=== PATIENT | female | born 1980 | race African-American/Black ===

== ENCOUNTER 2016-09-06 12:48 | Emergency (ER) | payer OTHER ==
[~2016-09-06] VITALS: Ht 160 cm; Wt 65.8 kg
[~2016-09-06 12:48] MED LIST: PNV1TABL12 PO
[2016-09-06] MEDS ORDERED: MORPHINE SULFATE 10 MG/ML VIAL. IM ONE (15:30)
[2016-09-06] MEDS ORDERED: DIPHENHYDRAMINE 50 MG/ML VIAL IM ONE (15:30)
[2016-09-06] MEDS ORDERED: DEXAMETHASONE SOD PHOS 20 MG/5 ML VIAL. IM ONE (15:30)
[2016-09-06] MEDS ORDERED: METH4TAB2 PO (15:49)
[2016-09-06] MEDS ORDERED: HYDR-971 PO (15:49)
--- NOTE | 2016-09-06 15:49 | PHYS DOC ---
Past Medical History Past Medical History: Arthritis, Asthma, UTI, Other Additional Past Medical Histor: RA, FLUID ON KNEE Past Surgical History: Appendectomy, , Other Additional Past Surgical Histo: hiatal hernia Alcohol Use: None Drug Use: None Adult General Chief Complaint Chief Complaint: LOWER EXT PAIN HPI HPI Patient is a 35 year old female who presents today with moderate chronic left lower extremity pain especially around the knee due to rheumatoid arthritis. Patient denies any known injury. She states she has an appointment with an orthopedic doctor next week. Review of Systems Review of Systems Constitutional: Denies fever or chills [] Musculoskeletal: Chronic left lower extremity pain Integument: Denies rash or skin lesions [] Neurologic: Denies headache, focal weakness or sensory changes [] Endocrine: Denies polyuria or polydipsia [] Current Medications Current Medications Current Medications Medications (Trade) Dose Ordered Sig/Wolfgang Start Time Stop Time Status Last Admin Dose Admin Dexamethasone Sodium Phosphate (Decadron) 10 mg 1X ONCE 09/06/16 15:30 09/06/16 15:31 DC 09/06/16 15:31 10 MG Diphenhydramine HCl (Benadryl) 25 mg 1X ONCE 09/06/16 15:30 09/06/16 15:31 DC 09/06/16 15:31 25 MG Morphine Sulfate 5 mg 1X ONCE 09/06/16 15:30 09/06/16 15:31 DC 09/06/16 15:30 5 MG Allergies Allergies Allergies Coded Allergies Type Severity Reaction Last Updated Verified butorphanol tartrate Allergy Intermediate Anxiety 07/26/14 Yes Penicillins Allergy Unknown 07/26/14 Yes ibuprofen Allergy Unknown 07/26/14 Yes latex Allergy Unknown 07/26/14 Yes Physical Exam Physical Exam Constitutional: Well developed, well nourished, no acute distress, non-toxic appearance. [] Skin: Warm, dry, no erythema, no rash. [] Back: No tenderness, no CVA tenderness. [] Extremities: Left lower extremity with no obvious deformity, small amount of swelling noted diffusely on the knee. Diffuse tenderness throughout the knee. No warmth on the knee. Full range of motion to the knee the patient is complaining of pain when he to range of motion. Negative Kalyani sign negative Carisa's sign negative anterior-posterior drawer sign to the left knee. +2 left pedal pulse. Cap refill less than 2 seconds the left lower extremity. Neurologic: Alert and oriented X 3, normal motor function, normal sensory function, no focal deficits noted. [] Psychologic: Affect normal, judgement normal, mood normal. [] Current Patient Data Vital Signs Vital Signs Date Time Temp Pulse Resp B/P Pulse Ox O2 Delivery O2 Flow Rate FiO2 09/06/16 16:09 81 18 160/104 100 Room Air 09/06/16 14:18 97.5 97.5 EKG EKG [] Radiology/Procedures Radiology/Procedures [] Course & Med Decision Making Course & Med Decision Making Pertinent Labs and Imaging studies reviewed. (See chart for details) Patient is in the ED with complaints of chronic left lower extremity pain especially around the knee due to rheumatoid arthritis. She was given right Decadron IM and morphine IM. Discharged with Medrol Dosepak and Onida 8 tablets with f/u with Ortho [] Dragon Disclaimer Dragon Disclaimer This electronic medical record was generated, in whole or in part, using a voice recognition dictation system. Departure Departure Impression: Primary Impression: Chronic pain of lower extremity Disposition: 01 HOME, SELF-CARE Condition: STABLE Referrals: JULIET BARNARD (PCP) Follow-up with your doctor as soon as possible Patient Instructions: Knee Pain Additional Instructions: You were seen for chronic left lower extremity pain. Please consider following up with your own doctor as soon as possible. You can ice and elevate the extremity. Scripts Clindamycin Hcl 150 Mg Capsule3 Cap PO TID #90 CAP Prov:ISAAC CRANDALL YULISA 09/06/16 Methylprednisolone (Medrol)4 Mg Tab.ds.pk1 Pkg PO UD #1 PKG Prov:ISAAC CRANDALL YULISA 09/06/16 Hydrocodone/Apap 5-325 (Onida 5-325 Tablet)1 Each Tablet1-2 Tab PO Q4-6HRS #8 TAB Prov:ISAAC CRANDALL YULISA 09/06/16 Problem Qualifiers Primary Impression: Chronic pain of lower extremity Laterality: left Qualified Code: M79.605 - Pain in left leg ISAAC CRANDALL APRN Sep 06, 2016 15:49
[2016-09-06 16:09] VITALS: BP 160/104
[2016-09-06] MEDS ORDERED: CLIN-44 PO (16:15)
== END 2016-09-06 16:14 | disposition home or self-care (01) ==
LOC: ER 12:48
DX: G89.29 Other chronic pain (principal); M79.605 Pain in left leg; M06.862 Other specified rheumatoid arthritis, left knee; J45.909 Unspecified asthma, uncomplicated; Z88.0 Allergy status to penicillin; Z88.6 Allergy status to analgesic agent; Z88.8 Allergy status to other drugs, medicaments and biological substances; Z91.040 Latex allergy status
CPT/HCPCS: 29505; 96372; 99284; J1100; J1200; J2270

== ENCOUNTER 2016-10-25 16:19 | Emergency (ER) | payer OTHER ==
[~2016-10-25] VITALS: Ht 160 cm; Wt 68.0 kg
[~2016-10-25 16:19] MED LIST changes: +CLIN-44 PO; +HYDR-971 PO; +METH4TAB2 PO
[2016-10-25 16:21] VITALS: BP 133/93
--- NOTE | 2016-10-25 16:37 | PHYS DOC ---
Past Medical History Past Medical History: Arthritis, Asthma, UTI, Other Additional Past Medical Histor: RA, FLUID ON KNEE Past Surgical History: Appendectomy, , Other Additional Past Surgical Histo: hiatal hernia, TOOTH EXTRACTION Alcohol Use: None Drug Use: None Adult General Chief Complaint Chief Complaint: DENTAL PROBLEM HPI HPI Patient is a 35 year old female presents emergency room today with complaint of upper mouth/jaw pain for 2 days. Patient states that she had 15 teeth extracted 2 days ago with [facility]. She states that she has been smoking cigarettes since that period of time. Patient was prescribed Percocet by [facility]. She reports an intolerance to Percocet as it causes her to feel agitated, nauseous and "itching". Review of Systems Review of Systems Constitutional: Denies fever or chills [] Eyes: Denies change in visual acuity, redness, or eye pain [] HENT: Denies nasal congestion or sore throat [] Respiratory: Denies cough or shortness of breath [] Cardiovascular: No additional information not addressed in HPI [] GI: Denies abdominal pain, nausea, vomiting, bloody stools or diarrhea [] : Denies dysuria or hematuria [] Musculoskeletal: Denies back pain or joint pain [] Integument: Denies rash or skin lesions [] Neurologic: Denies headache, focal weakness or sensory changes [] Endocrine: Denies polyuria or polydipsia [] Current Medications Current Medications Current Medications Medications (Trade) Dose Ordered Sig/Wolfgang Start Time Stop Time Status Last Admin Dose Admin Morphine Sulfate 5 mg 1X ONCE 10/25/16 16:45 10/25/16 16:46 UNV Allergies Allergies Allergies Coded Allergies Type Severity Reaction Last Updated Verified Penicillins Allergy Intermediate 10/25/16 Yes ibuprofen Allergy Intermediate 10/25/16 Yes latex Allergy Intermediate 10/25/16 Yes acetaminophen Adverse Reaction Intermediate Itching 10/25/16 Yes butorphanol tartrate Adverse Reaction Intermediate Anxiety 10/25/16 Yes oxycodone Adverse Reaction Intermediate Itching 10/25/16 Yes Physical Exam Physical Exam Constitutional: Well developed, well nourished, moderate distress, non-toxic appearance. Patient reports that she arrived with her who provided her transportation. HENT: Normocephalic, atraumatic, bilateral external ears normal, oropharynx moist, no oral exudates, nose normal. There is no trismus. There is moderate gingival inflammation to the central and left maxillary gum. It is not hypovolemic. There is no purulent drainage. There are no palpable gingival abscesses. There is no evidence of dry socket at this time. Eyes: PERRLA, EOMI, conjunctiva normal, no discharge. [] Neck: Normal range of motion, no tenderness, supple, no stridor. [] Cardiovascular:Heart rate regular rhythm, no murmur [] Lungs & Thorax: Bilateral breath sounds clear to auscultation [] Abdomen: Bowel sounds normal, soft, no tenderness, no masses, no pulsatile masses. [] Skin: Warm, dry, no erythema, no rash. [] Back: No tenderness, no CVA tenderness. [] Extremities: No tenderness, no cyanosis, no clubbing, ROM intact, no edema. [] Neurologic: Alert and oriented X 3, normal motor function, normal sensory function, no focal deficits noted. [] Psychologic: Affect normal, judgement normal, mood normal. [] Current Patient Data Vital Signs Vital Signs Date Time Temp Pulse Resp B/P Pulse Ox O2 Delivery O2 Flow Rate FiO2 10/25/16 16:21 97.9 93 20 99 Room Air 97.9 EKG EKG [] Radiology/Procedures Radiology/Procedures [] Course & Med Decision Making Course & Med Decision Making Pertinent Labs and Imaging studies reviewed. (See chart for details) [] Dragon Disclaimer Dragon Disclaimer This electronic medical record was generated, in whole or in part, using a voice recognition dictation system. Departure Departure Impression: Primary Impression: Pain, dental Additional Impression: Adverse drug reaction Disposition: 01 HOME, SELF-CARE Condition: IMPROVED Referrals: JULIET BARNARD (PCP) Patient Instructions: Dental Extraction, Care After, Drug Reaction, GI Intolerance Additional Instructions: 1. Take the medications prescribed. 2. Review the discharge instructions provided for self-care and reasons to return the emergency department. 3. As discussed, avoid smoking and sucking on straws. Be sure to rinse your mouth with warm salt water after eating. 4. Stop taking the Percocet that you say you have an adverse reaction to. 5. Call [facility] in the morning to be seen this week if you require additional pain medication. You may also contact your primary care doctor for prescription refill if needed. Scripts Hydrocodone/Apap 5-325 (Galva 5-325 Tablet)1 Each Tablet1 Tab PO PRN Q6HRS PRN PAIN #15 TAB Prov:KERMIT SIGALA 10/25/16 Problem Qualifiers KERMIT SIGALA Oct 25, 2016 16:37
[2016-10-25] MEDS ORDERED: MORPHINE SULFATE 10 MG/ML VIAL. IM ONE ×2 (16:45)
[2016-10-25] MEDS ORDERED: HYDR-971 PO (16:51)
== END 2016-10-25 17:10 | disposition home or self-care (01) ==
LOC: ER 16:19
DX: T40.2X5A Adverse effect of other opioids, initial encounter (principal); K08.89 Other specified disorders of teeth and supporting structures; R11.0 Nausea; R68.84 Jaw pain; R45.1 Restlessness and agitation; J45.909 Unspecified asthma, uncomplicated; M19.90 Unspecified osteoarthritis, unspecified site; F17.210 Nicotine dependence, cigarettes, uncomplicated; Z88.0 Allergy status to penicillin; Z91.040 Latex allergy status; Z88.6 Allergy status to analgesic agent; Z88.8 Allergy status to other drugs, medicaments and biological substances; Y92.89 Other specified places as the place of occurrence of the external cause
CPT/HCPCS: 96372; 99283; J2270

== ENCOUNTER 2016-11-17 17:32 | Emergency (ER) | payer SELFPAY ==
[~2016-11-17] VITALS: Ht 160 cm; Wt 68.0 kg
[2016-11-17 17:55] VITALS: BP 147/88
[2016-11-17] MEDS ORDERED: HYDR-971 PO (18:12)
--- NOTE | 2016-11-17 18:12 | PHYS DOC ---
Past Medical History Past Medical History: Arthritis, Asthma, UTI, Other Additional Past Medical Histor: RA, FLUID ON KNEE Past Surgical History: Appendectomy, , Other Additional Past Surgical Histo: hiatal hernia, TOOTH EXTRACTION Alcohol Use: None Drug Use: None Adult General Chief Complaint Chief Complaint: LOWER EXT PAIN HPI HPI Patient is a 35 year old female presents emergency Department today with complaint that her left knee has been "giving out and having to be put back in place". She states this is been reoccurring throughout the course of today. Patient has a history of chronic knee problems. She states she is followed by orthopedics and is pending physical therapy and December. She denies injury at this time. Patient was seen here in August for the same complaint. She is requesting some type of x-ray testing to be performed to see if there is any deep tissue problem. Review of Systems Review of Systems Constitutional: Denies fever or chills [] Eyes: Denies change in visual acuity, redness, or eye pain [] HENT: Denies nasal congestion or sore throat [] Respiratory: Denies cough or shortness of breath [] Cardiovascular: No additional information not addressed in HPI [] GI: Denies abdominal pain, nausea, vomiting, bloody stools or diarrhea [] : Denies dysuria or hematuria [] Musculoskeletal: Denies back pain or joint pain [] Integument: Denies rash or skin lesions [] Neurologic: Denies headache, focal weakness or sensory changes [] Endocrine: Denies polyuria or polydipsia [] Allergies Allergies Allergies Coded Allergies Type Severity Reaction Last Updated Verified Penicillins Allergy Intermediate 10/25/16 Yes ibuprofen Allergy Intermediate 10/25/16 Yes latex Allergy Intermediate 10/25/16 Yes acetaminophen Adverse Reaction Intermediate Itching 10/25/16 Yes butorphanol tartrate Adverse Reaction Intermediate Anxiety 10/25/16 Yes oxycodone Adverse Reaction Intermediate Itching 10/25/16 Yes Physical Exam Physical Exam Constitutional: Well developed, well nourished, no acute distress, non-toxic appearance. [] HENT: Normocephalic, atraumatic, bilateral external ears normal, oropharynx moist, no oral exudates, nose normal. [] Eyes: PERRLA, EOMI, conjunctiva normal, no discharge. [] Neck: Normal range of motion, no tenderness, supple, no stridor. [] Cardiovascular:Heart rate regular rhythm, no murmur [] Lungs & Thorax: Bilateral breath sounds clear to auscultation [] Abdomen: Bowel sounds normal, soft, no tenderness, no masses, no pulsatile masses. [] Skin: Warm, dry, no erythema, no rash. [] Back: No tenderness, no CVA tenderness. [] Extremities: Left knee is normal in appearance. There is no fusiform swelling or erythema. There is no high riding patella. Flexor and extensor mechanism is intact. There is no heat or focal area of tenderness. Negative ballottement. There is no patellar laxity. Ligaments are stable solid endpoints. Neurologic: Alert and oriented X 3, normal motor function, normal sensory function, no focal deficits noted. [] Psychologic: Affect normal, judgement normal, mood normal. [] Current Patient Data Vital Signs Vital Signs Date Time Temp Pulse Resp B/P Pulse Ox O2 Delivery O2 Flow Rate FiO2 11/17/16 17:55 97.6 104 20 97 Room Air 97.6 EKG EKG [] Radiology/Procedures Radiology/Procedures [] Course & Med Decision Making Course & Med Decision Making Pertinent Labs and Imaging studies reviewed. (See chart for details) [] Dragon Disclaimer Dragon Disclaimer This electronic medical record was generated, in whole or in part, using a voice recognition dictation system. Departure Departure Impression: Primary Impression: Chronic pain of left knee Disposition: 01 HOME, SELF-CARE Condition: GOOD Referrals: JULIET BARNARD (PCP) Patient Instructions: Knee Pain, [id number] Additional Instructions: 1. As discussed, the ligaments of your knee are stable. There is no need for a knee brace at this time. 2. Wear the Rashi wrap and use crutches for assisted weightbearing weight or walking. 3. Take the medication as prescribed. 4. Contact your orthopedic doctor in the morning to schedule follow-up appointment to discuss further management of your knee. Scripts Hydrocodone/Apap 5-325 (Luxora 5-325 Tablet)1 Each Tablet1 Tab PO PRN Q6HRS PRN PAIN #10 TAB Prov:KERMIT SIGALA 11/17/16 KERMIT SIGALA Nov 17, 2016 18:12
== END 2016-11-17 18:22 | disposition home or self-care (01) ==
LOC: ER 17:32
DX: G89.29 Other chronic pain (principal); M25.562 Pain in left knee; M06.9 Rheumatoid arthritis, unspecified; M19.90 Unspecified osteoarthritis, unspecified site; Z90.49 Acquired absence of other specified parts of digestive tract; Z87.440 Personal history of urinary (tract) infections; Z98.890 Other specified postprocedural states; J45.909 Unspecified asthma, uncomplicated; Z88.0 Allergy status to penicillin; Z88.5 Allergy status to narcotic agent; Z88.8 Allergy status to other drugs, medicaments and biological substances; Z91.040 Latex allergy status
CPT/HCPCS: 99283

== ENCOUNTER 2017-01-05 15:34 | Emergency (ER) | payer SELFPAY ==
[~2017-01-05] VITALS: Ht 160 cm; Wt 68.0 kg
[2017-01-05 15:45] VITALS: BP 145/78
--- NOTE | 2017-01-05 16:02 | PHYS DOC ---
Past Medical History Past Medical History: Arthritis, Asthma, UTI, Other Additional Past Medical Histor: RA, FLUID ON KNEE Past Surgical History: Appendectomy, , Other Additional Past Surgical Histo: hiatal hernia, TOOTH EXTRACTION, ABD MESH Alcohol Use: None Drug Use: None Adult General Chief Complaint Chief Complaint: VAGINAL PROBLEM HPI HPI Patient is a 36 year old female with a history of arthritis, anxiety, UTIs, who presents today with moderate pelvic pain and moderate vaginal bleeding for 7 days. Patient states she had a Depo shot 1 month ago and started bleeding 7 days ago. Patient states she already had another cycle around 12/16/2016. Patient denies any chance she is . Denies any urgency frequency dysuria. Denies any concerns for STDs. Review of Systems Review of Systems Constitutional: Denies fever or chills [] Eyes: Denies change in visual acuity, redness, or eye pain [] HENT: Denies nasal congestion or sore throat [] Respiratory: Denies cough or shortness of breath [] Cardiovascular: No additional information not addressed in HPI [] GI: Pelvic pain and of the vaginal bleeding : Denies dysuria or hematuria [] Musculoskeletal: Denies back pain or joint pain [] Integument: Denies rash or skin lesions [] Neurologic: Denies headache, focal weakness or sensory changes [] Endocrine: Denies polyuria or polydipsia [] Allergies Allergies Allergies Coded Allergies Type Severity Reaction Last Updated Verified Penicillins Allergy Intermediate 10/25/16 Yes ibuprofen Allergy Intermediate 10/25/16 Yes latex Allergy Intermediate 10/25/16 Yes acetaminophen Adverse Reaction Intermediate Itching 10/25/16 Yes butorphanol tartrate Adverse Reaction Intermediate Anxiety 10/25/16 Yes oxycodone Adverse Reaction Intermediate Itching 10/25/16 Yes Physical Exam Physical Exam Constitutional: Well developed, well nourished, no acute distress, non-toxic appearance. [] HENT: Normocephalic, atraumatic, bilateral external ears normal, oropharynx moist, no oral exudates, nose normal. [] Eyes: PERRLA, EOMI, conjunctiva normal, no discharge. [] Neck: Normal range of motion, no tenderness, supple, no stridor. [] Cardiovascular:Heart rate regular rhythm, no murmur [] Lungs & Thorax: Bilateral breath sounds clear to auscultation [] Abdomen: Bowel sounds normal, soft, no tenderness, no masses, no pulsatile masses. [] Pelvic pain External pelvic appears normal, cervix is closed, no CMT, trace amount of bright red blood in the vaginal vault, no adnexal tenderness, Skin: Warm, dry, no erythema, no rash. [] Back: No tenderness, no CVA tenderness. [] Extremities: No tenderness, no cyanosis, no clubbing, ROM intact, no edema. [] Neurologic: Alert and oriented X 3, normal motor function, normal sensory function, no focal deficits noted. [] Psychologic: Affect normal, judgement normal, mood normal. [] Current Patient Data Vital Signs Vital Signs Date Time Temp Pulse Resp B/P (MAP) Pulse Ox O2 Delivery O2 Flow Rate FiO2 01/05/17 15:45 97.7 94 24 145/78 (100) 100 Room Air 97.7 Lab Values Laboratory Tests Test 01/05/17 16:00 01/05/17 16:35 Urine Collection Type Unknown Urine Color Yellow Urine Clarity Clear Urine pH 5.5 Urine Specific [place] 1.025 Urine Protein Negative mg/dL (NEG-TRACE) Urine Glucose (UA) Negative mg/dL (NEG) Urine Ketones (Stick) Negative mg/dL (NEG) Urine Blood Large (NEG) Urine Nitrite Negative (NEG) Urine Reducing Substances % (NEG) Urine Bilirubin Negative (NEG) Urine Urobilinogen Dipstick 0.2 mg/dL (0.2 mg/dL) Urine Leukocyte Esterase Negative (NEG) Urine RBC 11-20 /HPF (0-2) Urine WBC 0 /HPF (0-4) Urine Squamous Epithelial Cells Mod /LPF Urine Bacteria 0 /HPF (0-FEW) Urine Mucus Marked /LPF POC Hemoglobin 13.6 g/dL (12-15) POC Hematocrit 40 % (36-40) POC Sodium 139 mmol/L (135-145) POC Potassium 3.5 mmol/L (3.5-5.0) POC Chloride 105 mmol/L (98-110) POC Total CO2 23 mmol/L (23-32) Anion Gap 15 mmol/L (6-14) H POC Blood Urea Nitrogen 6 mg/dL (8-26) L POC Creatinine 0.6 mg/dL (0.5-1.4) Glucose Level 143 mg/dL (70-99) H POC Ionized Calcium (Tho) 1.17 mmol/L (1.13-1.32) Laboratory Tests 01/05/17 16:35 Microbiology 01/05/17 Wet Prep - Final, Complete EKG EKG [] Radiology/Procedures Radiology/Procedures [] Course & Med Decision Making Course & Med Decision Making Pertinent Labs and Imaging studies reviewed. (See chart for details) Patient is in the ED with vaginal bleeding that began 7 days ago. She had depo shot a month ago. She had trace amount of blood in her vaginal vault during exam. She is well known to this ED for chronic pain complaints. Hemoglobin 13.6 , hematocrit 40%. Negative urine hCG, urine analysis is negative for infection, wet prep negative for any acute findings. Patient was provided return precautions. Follow-up with [facility] no PCP in the next 7 days. Dragon Disclaimer Dragon Disclaimer This electronic medical record was generated, in whole or in part, using a voice recognition dictation system. Departure Departure Impression: Primary Impression: Dysfunctional uterine bleeding Disposition: HOME, SELF-CARE Condition: STABLE Referrals: JULIET BARNARD (PCP) MICHAEL HARMON Jr, MD Follow up with your Primary Care Doctor or Dr. Caitie ALAMO in 1-3 days Patient Instructions: Uterine Bleeding, Dysfunctional Additional Instructions: You were seen for dysfunctional uterine bleeding. Follow-up with your own doctor or the provided [facility] as soon as you can. ISAAC CRANDALL APRN January 05, 2017 16:02
[2017-01-05 16:11] LABS: BILIRUBIN,URINE NEGATIVE (NEG); GLUCOSE,URINE NEGATIVE (NEG); NITRITE,URINE NEGATIVE (NEG); PH,URINE 5.5; PROTEIN,URINE NEGATIVE (NEG-TRACE); UROBILINOGEN,URINE 0.2 mg/dL (0.2 mg/dL)
[2017-01-05 16:17] LABS: BACTERIA,URINE 0 /HPF (0-FEW); SQUAMOUS EPITHELIAL CELL,UR MOD /LPF; WBC,URINE 0 /HPF (0-4)
[2017-01-05 16:40] LABS: POTASSIUM ISTAT 3.5 mmol/L (3.5-5.0)
== END 2017-01-05 16:48 | disposition home or self-care (01) ==
LOC: ER 15:34
DX: N93.8 Other specified abnormal uterine and vaginal bleeding (principal); M19.90 Unspecified osteoarthritis, unspecified site; J45.909 Unspecified asthma, uncomplicated; Z87.440 Personal history of urinary (tract) infections; Z90.49 Acquired absence of other specified parts of digestive tract; Z88.5 Allergy status to narcotic agent; Z88.0 Allergy status to penicillin; Z88.8 Allergy status to other drugs, medicaments and biological substances; Z91.040 Latex allergy status
CPT/HCPCS: 80047; 81001; 81025; 87491; 87591; 99284; Q0111

== ENCOUNTER 2017-02-06 13:06 | Emergency (ER) | payer SELFPAY ==
[~2017-02-06] VITALS: Ht 160 cm; Wt 65.8 kg
[~2017-02-06 13:06] MED LIST changes: -CLIN-44 PO; +CLIN150C14 PO
[2017-02-06 13:10] VITALS: BP 131/78
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
[2017-02-06] MEDS ORDERED: oxyCODONE/APAP 10/325 1 TAB TABLET PO ONE (13:30)
[2017-02-06] MEDS ORDERED: BACITRACIN TOPICAL OINT 14GM TUBE. TP ONE (13:45)
[2017-02-06] MEDS ORDERED: OXYC-323 PO (14:02)
== END 2017-02-06 14:11 | disposition home or self-care (01) ==
LOC: ER 13:06
DX: T23.212A Burn of second degree of left thumb (nail), initial encounter (principal); T23.211A Burn of second degree of right thumb (nail), initial encounter; J45.909 Unspecified asthma, uncomplicated; Z88.0 Allergy status to penicillin; Z88.5 Allergy status to narcotic agent; Z88.8 Allergy status to other drugs, medicaments and biological substances; Z88.6 Allergy status to analgesic agent; Z91.040 Latex allergy status; W39.XXXA Discharge of firework, initial encounter; Y93.89 Activity, other specified; Y99.8 Other external cause status; Y92.89 Other specified places as the place of occurrence of the external cause
CPT/HCPCS: 16020; 99285-25

== ENCOUNTER 2017-03-29 19:12 | Emergency (ER) | payer SELFPAY ==
[~2017-03-29] VITALS: Ht 160 cm; Wt 65.8 kg
[~2017-03-29 19:12] MED LIST changes: +OXYC-323 PO
[2017-03-29 20:17] LABS: BILIRUBIN,URINE NEGATIVE (NEG); GLUCOSE,URINE NEGATIVE (NEG); NITRITE,URINE NEGATIVE (NEG); PROTEIN,URINE NEGATIVE (NEG-TRACE); UROBILINOGEN,URINE 0.2 mg/dL (0.2 mg/dL)
[2017-03-29 20:23] LABS: BASO % 0 % (0-3); EOS % 0 % (0-3); HEMATOCRIT 38.3 % (36.0-47.0); HEMOGLOBIN 12.8 g/dL (12.0-15.5); LYMPH % 35 % (24-48); MEAN CORPUSCULAR HEMOGLOBIN 30 pg (25-35); MEAN CORPUSCULAR HGB CONC 33 g/dL (31-37); MEAN CORPUSCULAR VOLUME 90 fL (79-100); MONO % 7 % (0-9); NEUT % 57 % (31-73); PLATELET COUNT 299 x10^3/uL (140-400); RED BLOOD COUNT 4.26 x10^6/uL (3.50-5.40); RED CELL DISTRIBUTION WIDTH 13.6 % (11.5-14.5); WHITE BLOOD COUNT 5.8 x10^3/uL (4.0-11.0)
[2017-03-29 20:26] LABS: BACTERIA,URINE FEW /HPF (0-FEW); RBC,URINE 0 /HPF (0-2); SQUAMOUS EPITHELIAL CELL,UR OCC /LPF; WBC,URINE OCC /HPF (0-4)
[2017-03-29 20:35] LABS: CALCIUM 9.4 mg/dL (8.5-10.1); CREATININE 0.8 mg/dL (0.6-1.0); GFR 98.2; POTASSIUM 3.3 mmol/L (3.5-5.1)
[2017-03-29 20:42] LABS: ALBUMIN 4.4 g/dL (3.4-5.0); ALBUMIN/GLOBULIN RATIO 1.1 (1.0-1.7); TOTAL BILIRUBIN 0.3 mg/dL (0.2-1.0); TOTAL PROTEIN 8.3 g/dL (6.4-8.2)
--- NOTE | 2017-03-29 21:39 | PHYS DOC ---
Past Medical History Past Medical History: Arthritis, Asthma, UTI, Other Additional Past Medical Histor: RA, FLUID ON KNEE Past Surgical History: Appendectomy, , Other Additional Past Surgical Histo: hiatal hernia, TOOTH EXTRACTION, ABD MESH Alcohol Use: None Drug Use: None Adult General Chief Complaint Chief Complaint: ABDOMINAL PAIN HPI HPI Patient is a 36 year old female who presents here today complaining of abdominal pain. Patient reports that she's had a history significant for mesh placement back in 2004. Patient has any history of hypertension diabetes liver longer kidney problems. Patient reports she smokes does not drink or do any drugs. Patient has had an appendectomy and 2 C-sections in the past. Patient reports she's had pain like this in the past she was told that she had an infection of her mesh. Patient denies any fevers shakes chills nausea vomiting diarrhea dysuria frequency or urgency. Patient reports that she has had some tactile fevers at home over the last day or so. Patient is complaining of abdominal pain. Patient denies any constipation. Patient reports her last by mouth intake was noon time. Patient reports she has not taken any medications for her pain. Review of systems: Constitutional: Denies fever or chills Eyes: Denies change in visual acuity, redness, or eye pain HENT: Denies nasal congestion or sore throat All other review systems are negative except as documented in the history of present illness portion. Physical exam: Constitutional: Well developed, well nourished, no acute distress, non-toxic appearance. HENT: Normocephalic, atraumatic, bilateral external ears normal, nose normal. Eyes: EOMI, conjunctiva normal, no discharge. Neck: Normal range of motion, no tenderness, supple, no stridor. Cardiovascular:Heart rate regular rhythm Lungs & Thorax: Bilateral breath sounds clear to auscultation no respiratory distress Abdomen: Bowel sounds normal, soft, mild diffuse tenderness throughout. Normal active bowel sounds. No signs or symptoms consistent with an acute surgical abdomen, no masses, no pulsatile masses. Skin: Warm, dry, no erythema, no rash. Back: No tenderness, no CVA tenderness. Extremities: No tenderness, no cyanosis, no clubbing, ROM intact, no edema. Neurologic: Alert and oriented X 3, normal motor function, normal sensory function, no focal deficits noted. Psychologic: Affect normal, judgement normal, mood normal. Assessment and plan this is a 36-year-old female who presents here today complaining of diffuse abdominal pain. Patient is concerned that she might have an infected mesh. In the ER patient's clinically and hemodynamically stable. Patient is afebrile. Patient's labs were all within normal limits. Patient's white count is normal. Patient is not exhibiting any signs or symptoms of be consistent with a significant infection. Patient's abdominal exam was soft nondistended no rebound or guarding. Patient is not exhibiting any signs or symptoms of be concerning for an acute surgical abdomen. Urinalysis was unremarkable. There is no evidence of pilonidal infection. While the ER the patient received labs, CT scan was evaluated for abdominal pain. Patient will be given adequate analgesia will be stable for discharged home pending a normal CT scan. Allergies Allergies Allergies Coded Allergies Type Severity Reaction Last Updated Verified Penicillins Allergy Intermediate 02/06/17 Yes ibuprofen Allergy Intermediate 02/06/17 Yes latex Allergy Intermediate 02/06/17 Yes acetaminophen Adverse Reaction Intermediate Itching 10/25/16 Yes butorphanol tartrate Adverse Reaction Intermediate Anxiety 10/25/16 Yes oxycodone Adverse Reaction Intermediate Itching 10/25/16 Yes Current Patient Data Vital Signs Vital Signs Date Time Temp Pulse Resp B/P (MAP) Pulse Ox O2 Delivery O2 Flow Rate FiO2 03/29/17 19:55 99.9 94 18 128/83 (98) 100 Room Air 99.9 Lab Values Laboratory Tests Test 03/29/17 19:17 03/29/17 20:00 03/29/17 20:15 POC Urine HCG, Qualitative Hcg negative (Negative) Urine Color Yellow Urine Clarity Clear Urine pH 6.0 Urine Specific [place] >=1.030 Urine Protein Negative mg/dL (NEG-TRACE) Urine Glucose (UA) Negative mg/dL (NEG) Urine Ketones (Stick) Negative mg/dL (NEG) Urine Blood Negative (NEG) Urine Nitrite Negative (NEG) Urine Bilirubin Negative (NEG) Urine Urobilinogen Dipstick 0.2 mg/dL (0.2 mg/dL) Urine Leukocyte Esterase Negative (NEG) Urine RBC 0 /HPF (0-2) Urine WBC Occ /HPF (0-4) Urine Squamous Epithelial Cells Occ /LPF Urine Bacteria Few /HPF (0-FEW) Urine Mucus Marked /LPF White Blood Count 5.8 x10^3/uL (4.0-11.0) Red Blood Count 4.26 x10^6/uL (3.50-5.40) Hemoglobin 12.8 g/dL (12.0-15.5) Hematocrit 38.3 % (36.0-47.0) Mean Corpuscular Volume 90 fL (79-100) Mean Corpuscular Hemoglobin 30 pg (25-35) Mean Corpuscular Hemoglobin Concent 33 g/dL (31-37) Red Cell Distribution Width 13.6 % (11.5-14.5) Platelet Count 299 x10^3/uL (140-400) Neutrophils (%) (Auto) 57 % (31-73) Lymphocytes (%) (Auto) 35 % (24-48) Monocytes (%) (Auto) 7 % (0-9) Eosinophils (%) (Auto) 0 % (0-3) Basophils (%) (Auto) 0 % (0-3) Neutrophils # (Auto) 3.3 x10^3uL (1.8-7.7) Lymphocytes # (Auto) 2.0 x10^3/uL (1.0-4.8) Monocytes # (Auto) 0.4 x10^3/uL (0.0-1.1) Eosinophils # (Auto) 0.0 x10^3/uL (0.0-0.7) Basophils # (Auto) 0.0 x10^3/uL (0.0-0.2) Sodium Level 141 mmol/L (136-145) Potassium Level 3.3 mmol/L (3.5-5.1) L Chloride Level 103 mmol/L (98-107) Carbon Dioxide Level 27 mmol/L (21-32) Anion Gap 11 (6-14) Blood Urea Nitrogen 9 mg/dL (7-20) Creatinine 0.8 mg/dL (0.6-1.0) Estimated GFR (Cockcroft-Gault) 98.2 BUN/Creatinine Ratio 11 (6-20) Glucose Level 131 mg/dL (70-99) H Calcium Level 9.4 mg/dL (8.5-10.1) Total Bilirubin 0.3 mg/dL (0.2-1.0) Aspartate Amino Transferase (AST) 10 U/L (15-37) L Alanine Aminotransferase (ALT) 13 U/L (14-59) L Alkaline Phosphatase 58 U/L (46-116) Total Protein 8.3 g/dL (6.4-8.2) H Albumin 4.4 g/dL (3.4-5.0) Albumin/Globulin Ratio 1.1 (1.0-1.7) Lipase 138 U/L (73-393) Laboratory Tests 03/29/17 20:15 Laboratory Tests 03/29/17 20:15 EKG EKG [] Radiology/Procedures Radiology/Procedures [] Course & Med Decision Making Course & Med Decision Making Pertinent Labs and Imaging studies reviewed. (See chart for details) [] Dragon Disclaimer Dragon Disclaimer This electronic medical record was generated, in whole or in part, using a voice recognition dictation system. Departure Departure Impression: Primary Impression: Abdominal pain Disposition: HOME, SELF-CARE Condition: IMPROVED Referrals: NO PCP (PCP) Patient Instructions: Abdominal Pain (Nonspecific) Additional Instructions: Thank you for allowing us to participate in your care today. Followup with your primary care physician in 3 days if your symptoms do not improve. Call your Primary Doctor tomorrow and inform them of your visit today. If you do not have a primary care provider you can ask for a list of our primary care providers. Return to the emergency department you have any new or concerning findings. This should be evaluated by the primary care physician and any necessary consulting services for continued management within a few days after discharge. Return to emergency room if you have any new or concerning symptoms including but not limited to fever, chills, nausea, vomiting, intractable pain, any new rashes, chest pain, shortness of air, uncontrolled bleeding, difficulty breathing, and/or vision loss. You may have been prescribed medication that can change in your level of thinking and ability to operate machinery. These medications include hydrocodone and Ativan. Also, Benadryl has been known to do this as well. Be sure to check with your pharmacist and ask if the medications you've prescribed can affect your level of consciousness. I recommend not operating heavy machinery or driving while on medication such as these. SETH SCHWARTZ MD Mar 29, 2017 21:39
--- NOTE | 2017-03-29 21:58 | RAD ---
Indication: Abdominal pain and nausea. Surgical mass with previous infection. Technique: Axial images and coronal and sagittal reformatted images are provided. Exam was performed without IV or oral contrast. Comparison is from July 26, 2014. One or more of the following individualized dose reduction techniques were utilized for this examination: 1. Automated exposure control 2. Adjustment of the mA and/or kV according to patient size 3. Use of iterative reconstruction technique Findings: Left lower lobe pulmonary nodules up to 3 mm in size are noted. There is no pleural effusion. The heart is not enlarged. Solid organ evaluation is limited without contrast. Liver, gallbladder, spleen, pancreas, and adrenals are unremarkable. There is no urolithiasis. Neither renal collecting system is dilated. Aorta is normal caliber. There is no dilated small bowel loop or air-fluid level. Colon is unremarkable. Lack of IV or oral contrast limits evaluation of bowel. Postsurgical changes noted in the right lower quadrant likely related to appendectomy. There is evidence of ventral midline hernia repair. There is no new hernia. There is no associated fluid collection. Free pelvic fluid may be physiologic. There is no adnexal mass. Bladder is decompressed. Bony structures are intact. IMPRESSION: 1. No acute abdominal findings. 2. Postsurgical changes of ventral hernia repair without evidence of recurrent hernia or associated fluid collection. 3. Exam limited by lack of IV or oral contrast. 4. Pulmonary nodules. These were present on the 2013 exam, greater than 2 years of stability favors benign etiology and no further workup is required per Fleischner Society. Electronically signed by: Nigel Rowland MD (03/29/2017 9:55 PM) [id number]
[2017-03-29] MEDS ORDERED: ONDANSETRON PF 4 MG/2 ML VIAL. IV ONE (22:00)
[2017-03-29] MEDS ORDERED: MORPHINE SULFATE 2 MG/ML DISP.SYRIN. IV ONE (22:00)
[2017-03-29] MEDS ORDERED: MORPHINE SULFATE 4 MG/ML DISP.SYRIN. ONE (22:30)
[2017-03-29 22:36] VITALS: BP 122/86
== END 2017-03-29 22:36 | disposition home or self-care (01) ==
LOC: ER 19:12
DX: R10.9 Unspecified abdominal pain (principal); J45.909 Unspecified asthma, uncomplicated; M06.9 Rheumatoid arthritis, unspecified; F17.200 Nicotine dependence, unspecified, uncomplicated; Z88.0 Allergy status to penicillin; Z88.8 Allergy status to other drugs, medicaments and biological substances; Z88.6 Allergy status to analgesic agent; Z91.040 Latex allergy status; Z96.89 Presence of other specified functional implants
CPT/HCPCS: 36415; 74176; 80053; 81001; 81025; 83690; 85025; 96374; 96375; 99285; J2270; J2405

== ENCOUNTER 2017-05-17 11:01 | Inpatient (IN) | payer SELFPAY ==
[~2017-05-17] VITALS: Ht 160 cm; Wt 62.8 kg
--- NOTE | 2017-05-17 11:09 | PHYS DOC ---
Past Medical History Past Medical History: Arthritis, Asthma, UTI, Other Additional Past Medical Histor: RA, FLUID ON KNEE Past Surgical History: Appendectomy, , Other Additional Past Surgical Histo: hiatal hernia, TOOTH EXTRACTION, ABD MESH Alcohol Use: None Drug Use: None Adult General Chief Complaint Chief Complaint: ABDOMINAL PAIN HPI HPI Patient is a 36 year old female presenting to the emergency department for evaluation of multiple complaints including left periumbilical abdominal pain nausea vomiting vaginal bleeding left ear pain. Pain has been going on for several days and it is sharp associated with nonbloody nonbilious emesis. She says that she has continuous vaginal bleeding for months and that she seems to never stop bleeding. Patient says that she is pending insurance and has been unable to see a assistant superintendent. She says that the she had surgery with mesh placed approximately one year ago but the prior note says that the mesh was placed in 2004. She says that her surgery was done here but she does not remember her surgeon's name. She says that she gets abscesses they're frequently have to be drained although last time they did not have to drain it. She has had left ear pain with white and bloody discharge coming from her ear. No fevers chills diarrhea constipation dysuria hematuria or vaginal discharge. Review of Systems Review of Systems Constitutional: Denies fever or chills [] Eyes: Denies change in visual acuity, redness, or eye pain [] HENT: Denies nasal congestion or sore throat [] Respiratory: Denies cough or shortness of breath [] Cardiovascular: No additional information not addressed in HPI [] GI: + abdominal pain, nausea, vomiting. No bloody stools or diarrhea [] : Denies dysuria or hematuria [] Musculoskeletal: Denies back pain or joint pain [] Integument: Denies rash or skin lesions [] Neurologic: Denies headache, focal weakness or sensory changes [] Current Medications Current Medications Current Medications Medications (Trade) Dose Ordered Sig/Wolfgang Start Time Stop Time Status Last Admin Dose Admin Fentanyl Citrate (Fentanyl 2ml Vial) 50 mcg PRN Q2HR PRN 05/17/17 13:30 05/18/17 13:29 05/17/17 14:17 50 MCG Info (Do NOT chart on this entry -- for MONITORING) 1 each PRN DAILY PRN 10/9/17 12:30 05/19/17 12:29 Iohexol (Omnipaque 300 Mg/ml) 75 ml 1X ONCE 05/17/17 12:15 05/17/17 12:16 DC 05/17/17 12:41 75 ML Neomycin/ Polymyxin/ Hydrocortisone (Cortisporin Otic) 4 drop QID 05/17/17 13:30 05/17/17 14:17 4 DROP Ondansetron HCl (Zofran) 4 mg PRN Q8HRS PRN 05/17/17 13:30 05/18/17 13:29 Allergies Allergies Allergies Coded Allergies Type Severity Reaction Last Updated Verified Penicillins Allergy Intermediate 02/06/17 Yes ibuprofen Allergy Intermediate 02/06/17 Yes latex Allergy Intermediate 02/06/17 Yes acetaminophen Adverse Reaction Intermediate Itching 10/25/16 Yes butorphanol tartrate Adverse Reaction Intermediate Anxiety 10/25/16 Yes oxycodone Adverse Reaction Intermediate Itching 10/25/16 Yes Physical Exam Physical Exam Constitutional: Well developed, well nourished, no acute distress, non-toxic appearance. [] HENT: Normocephalic, atraumatic, L canal pain and swelling, pain on palpation of tragus, no mastoid tenderness. oropharynx moist, no oral exudates, nose normal. [] Eyes: PERRLA, EOMI, conjunctiva normal, no discharge. [] Neck: Normal range of motion, no tenderness, supple, no stridor. [] Cardiovascular:Heart rate regular rhythm, no murmur [] Lungs & Thorax: Bilateral breath sounds clear to auscultation [] Abdomen: Bowel sounds normal, soft, L periumbilical tenderness, no rebound or guarding, no masses, no pulsatile masses. [] Skin: Warm, dry, no erythema, no rash. [] Back: No tenderness, no CVA tenderness. [] Extremities: No tenderness, no cyanosis, no clubbing, ROM intact, no edema. [] Neurologic: Alert and oriented X 3, normal motor function, normal sensory function, no focal deficits noted. [] Current Patient Data Vital Signs Vital Signs Date Time Temp Pulse Resp B/P (MAP) Pulse Ox O2 Delivery O2 Flow Rate FiO2 05/17/17 14:17 Room Air 05/17/17 11:10 98.5 93 18 130/80 (97) 98 98.5 Lab Values Laboratory Tests Test 05/17/17 11:07 05/17/17 11:13 05/17/17 11:30 Urine Collection Type Unknown Urine Color [place] Urine Clarity Clear Urine pH 6.5 Urine Specific [place] >=1.030 Urine Protein 30 mg/dL (NEG-TRACE) Urine Glucose (UA) Negative mg/dL (NEG) Urine Ketones (Stick) Negative mg/dL (NEG) Urine Blood Negative (NEG) Urine Nitrite Negative (NEG) Urine Bilirubin Negative (NEG) Urine Urobilinogen Dipstick 1.0 mg/dL (0.2 mg/dL) Urine Leukocyte Esterase Negative (NEG) Urine RBC 0 /HPF (0-2) Urine WBC 0 /HPF (0-4) Urine Squamous Epithelial Cells Occ /LPF Urine Bacteria Few /HPF (0-FEW) Urine Mucus Marked /LPF Urine Opiates Screen Pos (NEG) Urine Methadone Screen Neg (NEG) Urine Barbiturates Neg (NEG) Urine Phencyclidine Screen Neg (NEG) Urine Amphetamine/Methamphetamine Neg (NEG) Urine Benzodiazepines Screen Neg (NEG) Urine Cocaine Screen Pos (NEG) Urine Cannabinoids Screen Neg (NEG) Urine Ethyl Alcohol Neg (NEG) POC Urine HCG, Qualitative Hcg negative (Negative) White Blood Count 6.7 x10^3/uL (4.0-11.0) Red Blood Count 3.93 x10^6/uL (3.50-5.40) Hemoglobin 11.7 g/dL (12.0-15.5) L Hematocrit 35.0 % (36.0-47.0) L Mean Corpuscular Volume 89 fL (79-100) Mean Corpuscular Hemoglobin 30 pg (25-35) Mean Corpuscular Hemoglobin Concent 33 g/dL (31-37) Red Cell Distribution Width 13.5 % (11.5-14.5) Platelet Count 278 x10^3/uL (140-400) Neutrophils (%) (Auto) 50 % (31-73) Lymphocytes (%) (Auto) 42 % (24-48) Monocytes (%) (Auto) 8 % (0-9) Eosinophils (%) (Auto) 0 % (0-3) Basophils (%) (Auto) 0 % (0-3) Neutrophils # (Auto) 3.3 x10^3uL (1.8-7.7) Lymphocytes # (Auto) 2.8 x10^3/uL (1.0-4.8) Monocytes # (Auto) 0.5 x10^3/uL (0.0-1.1) Eosinophils # (Auto) 0.0 x10^3/uL (0.0-0.7) Basophils # (Auto) 0.0 x10^3/uL (0.0-0.2) Sodium Level 141 mmol/L (136-145) Potassium Level 3.6 mmol/L (3.5-5.1) Chloride Level 104 mmol/L (98-107) Carbon Dioxide Level 27 mmol/L (21-32) Anion Gap 10 (6-14) Blood Urea Nitrogen 8 mg/dL (7-20) Creatinine 0.6 mg/dL (0.6-1.0) Estimated GFR (Cockcroft-Gault) 136.9 BUN/Creatinine Ratio 13 (6-20) Glucose Level 103 mg/dL (70-99) H Calcium Level 9.3 mg/dL (8.5-10.1) Magnesium Level 2.1 mg/dL (1.8-2.4) Total Bilirubin 0.4 mg/dL (0.2-1.0) Aspartate Amino Transferase (AST) 13 U/L (15-37) L Alanine Aminotransferase (ALT) 15 U/L (14-59) Alkaline Phosphatase 51 U/L (46-116) Total Protein 7.5 g/dL (6.4-8.2) Albumin 3.9 g/dL (3.4-5.0) Albumin/Globulin Ratio 1.1 (1.0-1.7) Lipase 69 U/L (73-393) L Laboratory Tests 05/17/17 11:30 Laboratory Tests 05/17/17 11:30 EKG EKG [] Radiology/Procedures Radiology/Procedures Exam performed: CT abdomen pelvis with contrast. History: Left periumbilical pain. Date of service: 05/17/17. Comparison: CT abdomen pelvis from 03/29/17 and 02/20/14 Technique: Contiguous helical acquisitions are obtained from the lung bases to the pelvis during intravenous administration of 75 cc of Omnipaque 300. Sagittal and coronal reformatted images are obtained and reviewed. Findings: The lung bases are essentially clear. The visualized heart is normal. The liver, spleen and pancreas appear normal. The gallbladder is normal. There is a well-defined cystic structure measuring 7.2 x 3.7 x 3.6 cm in the right mid abdomen that demonstrates average Hounsfield value of 19. A hernia repair mesh is seen in the mid abdomen. Small and large bowel loops are nondilated and unremarkable. Scattered stool in the colon. The urinary bladder is decompressed. The uterus is anteverted. No adnexal masses seen. No free or focal fluid collections or pelvic lymphadenopathy is identified. Impression: Well-defined cystic abnormality in the right mid abdomen adjacent to the hernia repair mesh is essentially stable since previous exam dating back to 02/20/14. No acute intra-abdominal or pelvic process detected. PQRS Compliance Statement: One or more of the following individualized dose reduction techniques were utilized for this examination: 1. Automated exposure control 2. Adjustment of the mA and/or kV according to patient size 3. Use of iterative reconstruction technique DICTATED and SIGNED BY: SHIRA WILLS MD DATE: 05/17/17 1241 Course & Med Decision Making Course & Med Decision Making Patient with nonspecific abdominal pain that she seems think she has an abscess that needs to be drained so I'll check a CT labs urine and reassess. She has a left otitis externa as well. Patient has fluid collection that was not there on prior CT per the radiology report however she has had the fluid collection on prior CTs but it was smaller. She does not provide an adequate history to me and I cannot figure out exactly what is going on with the mesh in these fluid collections but appears in 2013 surgery saw her and wanted to remove the mesh but she was at the time. I spoke to scrub nurse for Dr. Valdes and he requested to admit patient and he would try and sort things out later. Patient admitted in stable condition. Dragon Disclaimer Dragon Disclaimer This electronic medical record was generated, in whole or in part, using a voice recognition dictation system. Departure Departure Impression: Primary Impression: Abdominal fluid collection Additional Impressions: Chronic abdominal pain Otitis externa Drug abuse Referrals: NO PCP (PCP) Problem Qualifiers KANWAL PIMENTEL DO May 17, 2017 11:09
[2017-05-17] MEDS ORDERED: ONDANSETRON PF 4 MG/2 ML VIAL. IV ONE (11:30)
[2017-05-17] MEDS ORDERED: fentaNYL PF VIAL 100 MCG/2 ML VIAL IV ONE (11:30)
[2017-05-17 11:35] LABS: BILIRUBIN,URINE NEGATIVE (NEG); GLUCOSE,URINE NEGATIVE (NEG); NITRITE,URINE NEGATIVE (NEG); PH,URINE 6.5; PROTEIN,URINE 30 mg/dL (NEG-TRACE)
[2017-05-17 11:38] LABS: BARBITURATES NEG (NEG); BENZODIAZEPINES NEG (NEG); CANNABINOIDS NEG (NEG); COCAINE POS (NEG); METHADONE NEG (NEG); OPIATES POS (NEG); PHENCYCLIDINE NEG (NEG)
[2017-05-17 11:46] LABS: BASO % 0 % (0-3); EOS % 0 % (0-3); HEMOGLOBIN 11.7 g/dL (12.0-15.5); LYMPH # 2.8 x10^3/uL (1.0-4.8); LYMPH % 42 % (24-48); MEAN CORPUSCULAR HEMOGLOBIN 30 pg (25-35); MEAN CORPUSCULAR HGB CONC 33 g/dL (31-37); MEAN CORPUSCULAR VOLUME 89 fL (79-100); MONO % 8 % (0-9); NEUT % 50 % (31-73); PLATELET COUNT 278 x10^3/uL (140-400); RED BLOOD COUNT 3.93 x10^6/uL (3.50-5.40); RED CELL DISTRIBUTION WIDTH 13.5 % (11.5-14.5); WHITE BLOOD COUNT 6.7 x10^3/uL (4.0-11.0)
[2017-05-17 12:00] LABS: CALCIUM 9.3 mg/dL (8.5-10.1); CREATININE 0.6 mg/dL (0.6-1.0); GFR 136.9; POTASSIUM 3.6 mmol/L (3.5-5.1)
[2017-05-17 12:01] LABS: BACTERIA,URINE FEW /HPF (0-FEW); RBC,URINE 0 /HPF (0-2); SQUAMOUS EPITHELIAL CELL,UR OCC /LPF; WBC,URINE 0 /HPF (0-4)
[2017-05-17 12:07] LABS: ALBUMIN 3.9 g/dL (3.4-5.0); ALBUMIN/GLOBULIN RATIO 1.1 (1.0-1.7); MAGNESIUM 2.1 mg/dL (1.8-2.4); TOTAL BILIRUBIN 0.4 mg/dL (0.2-1.0); TOTAL PROTEIN 7.5 g/dL (6.4-8.2)
[2017-05-17] MEDS ORDERED: IOHEXOL 300 MG/ML 75 ML VIAL IV ONE (12:15)
[2017-05-17] MEDS ORDERED: CONTRAST GIVEN MC PRN (12:30)
--- NOTE | 2017-05-17 12:50 | RAD ---
Exam performed: CT abdomen pelvis with contrast. History: Left periumbilical pain. Date of service: 05/17/17. Comparison: CT abdomen pelvis from 03/29/17 and 02/20/14 Technique: Contiguous helical acquisitions are obtained from the lung bases to the pelvis during intravenous administration of 75 cc of Omnipaque 300. Sagittal and coronal reformatted images are obtained and reviewed. Findings: The lung bases are essentially clear. The visualized heart is normal. The liver, spleen and pancreas appear normal. The gallbladder is normal. There is a well-defined cystic structure measuring 7.2 x 3.7 x 3.6 cm in the right mid abdomen that demonstrates average Hounsfield value of 19. A hernia repair mesh is seen in the mid abdomen. Small and large bowel loops are nondilated and unremarkable. Scattered stool in the colon. The urinary bladder is decompressed. The uterus is anteverted. No adnexal masses seen. No free or focal fluid collections or pelvic lymphadenopathy is identified. Impression: Well-defined cystic abnormality in the right mid abdomen adjacent to the hernia repair mesh is essentially stable since previous exam dating back to 02/20/14. No acute intra-abdominal or pelvic process detected. PQRS Compliance Statement: One or more of the following individualized dose reduction techniques were utilized for this examination: 1. Automated exposure control 2. Adjustment of the mA and/or kV according to patient size 3. Use of iterative reconstruction technique
[2017-05-17] MEDS: NEOMYCIN/POLYMYXIN/HC OTIC SUSPENSION 10ML BOTTLE. AS SCH ×4 (14:17→20:16)
[2017-05-17] MEDS: fentaNYL PF VIAL 100 MCG/2 ML VIAL IV PRN ×4 (14:17→23:33)
[2017-05-17 15:00] VITALS: BP 119/81
[2017-05-17] MEDS: ONDANSETRON PF 4 MG/2 ML VIAL. IV PRN (15:36)
--- NOTE | 2017-05-17 16:50 | PDOC2 ---
CONSULT Date of Consult Date of Consult DATE: 05/17/17 TIME: 16:49 Reason for Consult Reason for Consult: abdominal pain with CT showing recurrent fluid collection in the abdominal wall Current Problem List Problem List Problems Medical Problems: (1) Chronic abdominal pain Status: Acute (2) Drug abuse Status: Acute (3) Otitis externa Status: Acute Current Medications Current Medications Current Medications Ondansetron HCl (Zofran) 8 mg 1X ONCE IV Last administered on 05/17/17 11:50 ; Start 05/17/17 at 11:30; Stop 05/17/17 at 11:31; Status DC Fentanyl Citrate (Fentanyl 2ml Vial) 75 mcg 1X ONCE IV Last administered on 11:52; Start 05/17/17 at 11:30; Stop 05/17/17 at 11:31; Status DC Iohexol (Omnipaque 300 Mg/ml) 75 ml 1X ONCE IV Last administered on 05/17/17 12:41; Start 05/17/17 at 12:15; Stop 05/17/17 at 12:16; Status DC Info (Do NOT chart on this entry -- for MONITORING) 1 each PRN DAILY PRN MC SEE COMMENTS; Start 05/17/17 at 12:30; Stop 05/19/17 at 12:29 Neomycin/ Polymyxin/ Hydrocortisone (Cortisporin Otic) 4 drop QID Last administered on 05/17/17 16:32; Start 05/17/17 at 13:30 Ondansetron HCl (Zofran) 4 mg PRN Q8HRS PRN IV NAUSEA/VOMITING Last administered on 05/17/17 15:36; Start 05/17/17 at 13:30; Stop 05/18/17 at 13: 29 Fentanyl Citrate (Fentanyl 2ml Vial) 50 mcg PRN Q2HR PRN IV PAIN Last administered on 05/17/17 16:28; Start 05/17/17 at 13:30; Stop 05/18/17 at 13: 29 Acetaminophen/ Hydrocodone Bitart (Lortab 5/325) 1 tab PRN Q6HRS PRN PO PAIN; Start 05/17/17 at 16:45 Oxycodone HCl (Roxicodone) 10 mg PRN Q6HRS PRN PO PAIN; Start 05/17/17 at 16:45 Active Scripts Active Percocet 5-325 Mg Tablet (Oxycodone/Acetaminophen) 1 Each Tablet 1-2 Each PO PRN TID PRN pain [place] 5-325 Tablet (Acetaminophen/Hydrocodone Bitart) 1 Each Tablet 1 Tab PO PRN Q6HRS PRN [place] 5-325 Tablet (Acetaminophen/Hydrocodone Bitart) 1 Each Tablet 1 Tab PO PRN Q6HRS PRN Clindamycin Hcl 150 Mg Capsule 3 Cap PO TID Medrol (Methylprednisolone) 4 Mg Tab.ds.pk 1 Pkg PO UD [place] 5-325 Tablet (Acetaminophen/Hydrocodone Bitart) 1 Each Tablet 1-2 Tab PO Q4-6HRS Reported No Known Medications Prior To Admisstion (Info) Each 1 Each MC Allergies Allergies: Coded Allergies: Penicillins (Verified Allergy, Intermediate, 02/06/17) ibuprofen (Verified Allergy, Intermediate, 02/06/17) latex (Verified Allergy, Intermediate, 02/06/17) acetaminophen (Verified Adverse Reaction, Intermediate, Itching, 10/25/16) HEART RACING, PALPITATIONS, ITCHING butorphanol tartrate (Verified Adverse Reaction, Intermediate, Anxiety, ) felt like she was burning up inside oxycodone (Verified Adverse Reaction, Intermediate, Itching, 10/25/16) HEART RACING, PALPITATIONS, ITCHING Vitals VITALS Vital Signs Date Time Temp Pulse Resp B/P (MAP) Pulse Ox O2 Delivery O2 Flow Rate FiO2 05/17/17 16:28 Room Air 05/17/17 15:00 98.4 85 16 119/81 (94) 98 98.4 Labs Labs Laboratory Tests Test 05/17/17 11:07 05/17/17 11:13 05/17/17 11:30 Urine Collection Type Unknown Urine Color Rosa Urine Clarity Clear Urine pH 6.5 Urine Specific [place] >=1.030 Urine Protein 30 mg/dL (NEG-TRACE) Urine Glucose (UA) Negative mg/dL (NEG) Urine Ketones (Stick) Negative mg/dL (NEG) Urine Blood Negative (NEG) Urine Nitrite Negative (NEG) Urine Bilirubin Negative (NEG) Urine Urobilinogen Dipstick 1.0 mg/dL (0.2 mg/dL) Urine Leukocyte Esterase Negative (NEG) Urine RBC 0 /HPF (0-2) Urine WBC 0 /HPF (0-4) Urine Squamous Epithelial Cells Occ /LPF Urine Bacteria Few /HPF (0-FEW) Urine Mucus Marked /LPF Urine Opiates Screen Pos (NEG) Urine Methadone Screen Neg (NEG) Urine Barbiturates Neg (NEG) Urine Phencyclidine Screen Neg (NEG) Urine Amphetamine/Methamphetamine Neg (NEG) Urine Benzodiazepines Screen Neg (NEG) Urine Cocaine Screen Pos (NEG) Urine Cannabinoids Screen Neg (NEG) Urine Ethyl Alcohol Neg (NEG) Bedside Urine HCG, Qualitative Hcg negative (Negative) White Blood Count 6.7 x10^3/uL (4.0-11.0) Red Blood Count 3.93 x10^6/uL (3.50-5.40) Hemoglobin 11.7 g/dL (12.0-15.5) Hematocrit 35.0 % (36.0-47.0) Mean Corpuscular Volume 89 fL (79-100) Mean Corpuscular Hemoglobin 30 pg (25-35) Mean Corpuscular Hemoglobin Concent 33 g/dL (31-37) Red Cell Distribution Width 13.5 % (11.5-14.5) Platelet Count 278 x10^3/uL (140-400) Neutrophils (%) (Auto) 50 % (31-73) Lymphocytes (%) (Auto) 42 % (24-48) Monocytes (%) (Auto) 8 % (0-9) Eosinophils (%) (Auto) 0 % (0-3) Basophils (%) (Auto) 0 % (0-3) Neutrophils # (Auto) 3.3 x10^3uL (1.8-7.7) Lymphocytes # (Auto) 2.8 x10^3/uL (1.0-4.8) Monocytes # (Auto) 0.5 x10^3/uL (0.0-1.1) Eosinophils # (Auto) 0.0 x10^3/uL (0.0-0.7) Basophils # (Auto) 0.0 x10^3/uL (0.0-0.2) Sodium Level 141 mmol/L (136-145) Potassium Level 3.6 mmol/L (3.5-5.1) Chloride Level 104 mmol/L (98-107) Carbon Dioxide Level 27 mmol/L (21-32) Anion Gap 10 (6-14) Blood Urea Nitrogen 8 mg/dL (7-20) Creatinine 0.6 mg/dL (0.6-1.0) Estimated GFR (Cockcroft-Gault) 136.9 BUN/Creatinine Ratio 13 (6-20) Glucose Level 103 mg/dL (70-99) Calcium Level 9.3 mg/dL (8.5-10.1) Magnesium Level 2.1 mg/dL (1.8-2.4) Total Bilirubin 0.4 mg/dL (0.2-1.0) Aspartate Amino Transf (AST/SGOT) 13 U/L (15-37) Alanine Aminotransferase (ALT/SGPT) 15 U/L (14-59) Alkaline Phosphatase 51 U/L (46-116) Total Protein 7.5 g/dL (6.4-8.2) Albumin 3.9 g/dL (3.4-5.0) Albumin/Globulin Ratio 1.1 (1.0-1.7) Lipase 69 U/L (73-393) Laboratory Tests Test 05/17/17 11:07 05/17/17 11:13 05/17/17 11:30 Urine Collection Type Unknown Urine Color Rosa Urine Clarity Clear Urine pH 6.5 Urine Specific [place] >=1.030 Urine Protein 30 mg/dL (NEG-TRACE) Urine Glucose (UA) Negative mg/dL (NEG) Urine Ketones (Stick) Negative mg/dL (NEG) Urine Blood Negative (NEG) Urine Nitrite Negative (NEG) Urine Bilirubin Negative (NEG) Urine Urobilinogen Dipstick 1.0 mg/dL (0.2 mg/dL) Urine Leukocyte Esterase Negative (NEG) Urine RBC 0 /HPF (0-2) Urine WBC 0 /HPF (0-4) Urine Squamous Epithelial Cells Occ /LPF Urine Bacteria Few /HPF (0-FEW) Urine Mucus Marked /LPF Urine Opiates Screen Pos (NEG) Urine Methadone Screen Neg (NEG) Urine Barbiturates Neg (NEG) Urine Phencyclidine Screen Neg (NEG) Urine Amphetamine/Methamphetamine Neg (NEG) Urine Benzodiazepines Screen Neg (NEG) Urine Cocaine Screen Pos (NEG) Urine Cannabinoids Screen Neg (NEG) Urine Ethyl Alcohol Neg (NEG) Bedside Urine HCG, Qualitative Hcg negative (Negative) White Blood Count 6.7 x10^3/uL (4.0-11.0) Red Blood Count 3.93 x10^6/uL (3.50-5.40) Hemoglobin 11.7 g/dL (12.0-15.5) Hematocrit 35.0 % (36.0-47.0) Mean Corpuscular Volume 89 fL (79-100) Mean Corpuscular Hemoglobin 30 pg (25-35) Mean Corpuscular Hemoglobin Concent 33 g/dL (31-37) Red Cell Distribution Width 13.5 % (11.5-14.5) Platelet Count 278 x10^3/uL (140-400) Neutrophils (%) (Auto) 50 % (31-73) Lymphocytes (%) (Auto) 42 % (24-48) Monocytes (%) (Auto) 8 % (0-9) Eosinophils (%) (Auto) 0 % (0-3) Basophils (%) (Auto) 0 % (0-3) Neutrophils # (Auto) 3.3 x10^3uL (1.8-7.7) Lymphocytes # (Auto) 2.8 x10^3/uL (1.0-4.8) Monocytes # (Auto) 0.5 x10^3/uL (0.0-1.1) Eosinophils # (Auto) 0.0 x10^3/uL (0.0-0.7) Basophils # (Auto) 0.0 x10^3/uL (0.0-0.2) Sodium Level 141 mmol/L (136-145) Potassium Level 3.6 mmol/L (3.5-5.1) Chloride Level 104 mmol/L (98-107) Carbon Dioxide Level 27 mmol/L (21-32) Anion Gap 10 (6-14) Blood Urea Nitrogen 8 mg/dL (7-20) Creatinine 0.6 mg/dL (0.6-1.0) Estimated GFR (Cockcroft-Gault) 136.9 BUN/Creatinine Ratio 13 (6-20) Glucose Level 103 mg/dL (70-99) Calcium Level 9.3 mg/dL (8.5-10.1) Magnesium Level 2.1 mg/dL (1.8-2.4) Total Bilirubin 0.4 mg/dL (0.2-1.0) Aspartate Amino Transf (AST/SGOT) 13 U/L (15-37) Alanine Aminotransferase (ALT/SGPT) 15 U/L (14-59) Alkaline Phosphatase 51 U/L (46-116) Total Protein 7.5 g/dL (6.4-8.2) Albumin 3.9 g/dL (3.4-5.0) Albumin/Globulin Ratio 1.1 (1.0-1.7) Lipase 69 U/L (73-393) Assessment/Plan Assessment/Plan FNTF no acute surgical recs agree with IR consult will follow WILDER BRYANT MD May 17, 2017 16:50
--- NOTE | 2017-05-17 17:04 | PDOC1 ---
History and Physical Date of Admission Date of Admission DATE: 05/17/17 TIME: 16:59 Identification/Chief Complaint Chief Complaint abd pain Problems: Source Source: Chart review, Patient History of Present Illness History of Present Illness Ms. Huerta, is a 36 year old female admit for abd pain, has severe left periumbilical abdominal pain nausea vomiting. Prior abd mesh placed 2003 at [facility], for hiatal hernia repair. She does not want to go back to , family member there. She has mult prior admits for abd pain, req. drainage, and has seen Dr. Funez before, she requests mesh be removed. abd pain, w/ fever symptoms Past Medical History Cardiovascular: No pertinent hx Pulmonary: No pertinent hx GI: No pertinent hx Hepatobiliary: No pertinent hx Psych: No pertinent hx Musculoskeletal: low back pain Rheumatologic: No pertinent hx Infectious disease: No pertinent hx ENT: No pertinent hx Renal/: No pertinent hx Endocrine: No pertinent hx Dermatology: No pertinent hx Family History Family History: No Significant Social History Smoke: No ALCOHOL: none Drugs: None Current Problem List Problem List Problems Medical Problems: (1) Chronic abdominal pain Status: Acute (2) Drug abuse Status: Acute (3) Otitis externa Status: Acute Problems: Current Medications Current Medications Current Medications Ondansetron HCl (Zofran) 8 mg 1X ONCE IV Last administered on 05/17/17 11:50 ; Start 05/17/17 at 11:30; Stop 05/17/17 at 11:31; Status DC Fentanyl Citrate (Fentanyl 2ml Vial) 75 mcg 1X ONCE IV Last administered on 11:52; Start 05/17/17 at 11:30; Stop 05/17/17 at 11:31; Status DC Iohexol (Omnipaque 300 Mg/ml) 75 ml 1X ONCE IV Last administered on 05/17/17 12:41; Start 05/17/17 at 12:15; Stop 05/17/17 at 12:16; Status DC Info (Do NOT chart on this entry -- for MONITORING) 1 each PRN DAILY PRN MC SEE COMMENTS; Start 05/17/17 at 12:30; Stop 05/19/17 at 12:29 Neomycin/ Polymyxin/ Hydrocortisone (Cortisporin Otic) 4 drop QID Last administered on 10/9/17at 16:32; Start 05/17/17 at 13:30 Ondansetron HCl (Zofran) 4 mg PRN Q8HRS PRN IV NAUSEA/VOMITING Last administered on 05/17/17 15:36; Start 05/17/17 at 13:30; Stop 05/18/17 at 13: 29 Fentanyl Citrate (Fentanyl 2ml Vial) 50 mcg PRN Q2HR PRN IV PAIN Last administered on 05/17/17 16:28; Start 05/17/17 at 13:30; Stop 05/18/17 at 13: 29 Acetaminophen/ Hydrocodone Bitart (Lortab 5/325) 1 tab PRN Q6HRS PRN PO PAIN; Start 05/17/17 at 16:45 Oxycodone HCl (Roxicodone) 10 mg PRN Q6HRS PRN PO PAIN; Start 05/17/17 at 16:45 Active Scripts Active Percocet 5-325 Mg Tablet (Oxycodone/Acetaminophen) 1 Each Tablet 1-2 Each PO PRN TID PRN pain [place] 5-325 Tablet (Acetaminophen/Hydrocodone Bitart) 1 Each Tablet 1 Tab PO PRN Q6HRS PRN [place] 5-325 Tablet (Acetaminophen/Hydrocodone Bitart) 1 Each Tablet 1 Tab PO PRN Q6HRS PRN Clindamycin Hcl 150 Mg Capsule 3 Cap PO TID Medrol (Methylprednisolone) 4 Mg Tab.ds.pk 1 Pkg PO UD [place] 5-325 Tablet (Acetaminophen/Hydrocodone Bitart) 1 Each Tablet 1-2 Tab PO Q4-6HRS Reported No Known Medications Prior To Admisstion (Info) Each 1 Each Allergies Allergies: Coded Allergies: Penicillins (Verified Allergy, Intermediate, 02/06/17) ibuprofen (Verified Allergy, Intermediate, 02/06/17) latex (Verified Allergy, Intermediate, 02/06/17) acetaminophen (Verified Adverse Reaction, Intermediate, Itching, 10/25/16) HEART RACING, PALPITATIONS, ITCHING butorphanol tartrate (Verified Adverse Reaction, Intermediate, Anxiety, ) felt like she was burning up inside oxycodone (Verified Adverse Reaction, Intermediate, Itching, 10/25/16) HEART RACING, PALPITATIONS, ITCHING ROS General: No: Chills, Night Sweats, Fatigue, Malaise, Appetite, Other PSYCHOLOGICAL ROS: No: Anxiety, Behavioral Disorder, Concentration difficultie , Decreased libido, Depression, Disorientation, Hallucinations, Hostility, Irritablity, Memory difficulties, Mood Swings, Obsessive thoughts, Physical abuse, Sexual abuse, Sleep disturbances, Suicidal ideation, Other Eyes: No Blurry vision, No Decreased vision, No Double vision, No Dry eyes, No Excessive tearing, No Eye Pain, No Itchy Eyes, No Loss of vision, No Photophobia , No Scotomata, No Uses contacts, No Uses glasses, No Other HEENT: No: Heacaches, Visual Changes, Hearing change, Nasal congestion, Nasal discharge, Oral lesions, Sinus pain, Sore Throat, Epistaxis, Sneezing, Snoring, Tinnitus, Vertigo, Vocal changes, Other Respiratory: No: Cough, Hemoptysis, Orthopnea, Pleuritic Pain, Shortness of breath, SOB with excertion, Sputum Changes, Stridor, Tachypnea, Wheezing, Other Gastrointestinal: No Nausea, No Vomiting, No Abdominal Pain, No Diarrhea, No Constipation, No Melena, No Hematochezia, No Other Genitourinary: No Dysuria, No Frequency, No Incontinence, No Hematuria, No Retention, No Discharge, No Urgency, No Pain, No Flank Pain, No Other, No , No , No , No , No , No , No Musculoskeletal: No Gait Disturbance, No Joint Pain, No Joint Stiffness, No Joint Swelling, No Muscle Pain, No Muscular Weakness, No Pain In:, No Swelling In:, No Other Neurological: No Behavorial Changes, No Bowel/Bladder ControlChng, No Confusion , No Dizziness, No Gait Disturbance, No Headaches, No Impaired Coord/balance, No Memory Loss, No Numbness/Tingling, No Seizures, No Speech Problems, No Tremors, No Visual Changes, No Weakness, No Other Skin: No Dry Skin, No Eczema, No Hair Changes, No Lumps, No Mole Changes, No Mottling, No Nail Changes, No Pruritus, No Rash, No Skin Lesion Changes, No Other, No Acne Physical Exam General: Alert, Oriented X3, Cooperative, mild distress HEENT: EOMI, Mucous membr. moist/pink Lungs: Normal air movement Heart: no gallops, no murmurs Abdomen: Normal bowel sounds, Soft Extremities: No clubbing, No edema, Normal pulses Skin: No rashes, No breakdown, No significant lesion Neuro: Normal speech, Normal tone, Sensation intact Psych/Mental Status: Mood NL Vitals Vitals Vital Signs Date Time Temp Pulse Resp B/P (MAP) Pulse Ox O2 Delivery O2 Flow Rate FiO2 05/17/17 16:28 Room Air 05/17/17 15:00 98.4 85 16 119/81 (94) 98 98.4 Labs Labs Laboratory Tests Test 05/17/17 11:07 05/17/17 11:13 05/17/17 11:30 Urine Collection Type Unknown Urine Color Rosa Urine Clarity Clear Urine pH 6.5 Urine Specific [place] >=1.030 Urine Protein 30 mg/dL (NEG-TRACE) Urine Glucose (UA) Negative mg/dL (NEG) Urine Ketones (Stick) Negative mg/dL (NEG) Urine Blood Negative (NEG) Urine Nitrite Negative (NEG) Urine Bilirubin Negative (NEG) Urine Urobilinogen Dipstick 1.0 mg/dL (0.2 mg/dL) Urine Leukocyte Esterase Negative (NEG) Urine RBC 0 /HPF (0-2) Urine WBC 0 /HPF (0-4) Urine Squamous Epithelial Cells Occ /LPF Urine Bacteria Few /HPF (0-FEW) Urine Mucus Marked /LPF Urine Opiates Screen Pos (NEG) Urine Methadone Screen Neg (NEG) Urine Barbiturates Neg (NEG) Urine Phencyclidine Screen Neg (NEG) Urine Amphetamine/Methamphetamine Neg (NEG) Urine Benzodiazepines Screen Neg (NEG) Urine Cocaine Screen Pos (NEG) Urine Cannabinoids Screen Neg (NEG) Urine Ethyl Alcohol Neg (NEG) Bedside Urine HCG, Qualitative Hcg negative (Negative) White Blood Count 6.7 x10^3/uL (4.0-11.0) Red Blood Count 3.93 x10^6/uL (3.50-5.40) Hemoglobin 11.7 g/dL (12.0-15.5) Hematocrit 35.0 % (36.0-47.0) Mean Corpuscular Volume 89 fL (79-100) Mean Corpuscular Hemoglobin 30 pg (25-35) Mean Corpuscular Hemoglobin Concent 33 g/dL (31-37) Red Cell Distribution Width 13.5 % (11.5-14.5) Platelet Count 278 x10^3/uL (140-400) Neutrophils (%) (Auto) 50 % (31-73) Lymphocytes (%) (Auto) 42 % (24-48) Monocytes (%) (Auto) 8 % (0-9) Eosinophils (%) (Auto) 0 % (0-3) Basophils (%) (Auto) 0 % (0-3) Neutrophils # (Auto) 3.3 x10^3uL (1.8-7.7) Lymphocytes # (Auto) 2.8 x10^3/uL (1.0-4.8) Monocytes # (Auto) 0.5 x10^3/uL (0.0-1.1) Eosinophils # (Auto) 0.0 x10^3/uL (0.0-0.7) Basophils # (Auto) 0.0 x10^3/uL (0.0-0.2) Sodium Level 141 mmol/L (136-145) Potassium Level 3.6 mmol/L (3.5-5.1) Chloride Level 104 mmol/L (98-107) Carbon Dioxide Level 27 mmol/L (21-32) Anion Gap 10 (6-14) Blood Urea Nitrogen 8 mg/dL (7-20) Creatinine 0.6 mg/dL (0.6-1.0) Estimated GFR (Cockcroft-Gault) 136.9 BUN/Creatinine Ratio 13 (6-20) Glucose Level 103 mg/dL (70-99) Calcium Level 9.3 mg/dL (8.5-10.1) Magnesium Level 2.1 mg/dL (1.8-2.4) Total Bilirubin 0.4 mg/dL (0.2-1.0) Aspartate Amino Transf (AST/SGOT) 13 U/L (15-37) Alanine Aminotransferase (ALT/SGPT) 15 U/L (14-59) Alkaline Phosphatase 51 U/L (46-116) Total Protein 7.5 g/dL (6.4-8.2) Albumin 3.9 g/dL (3.4-5.0) Albumin/Globulin Ratio 1.1 (1.0-1.7) Lipase 69 U/L (73-393) Laboratory Tests Test 05/17/17 11:07 05/17/17 11:13 05/17/17 11:30 Urine Collection Type Unknown Urine Color Rosa Urine Clarity Clear Urine pH 6.5 Urine Specific [place] >=1.030 Urine Protein 30 mg/dL (NEG-TRACE) Urine Glucose (UA) Negative mg/dL (NEG) Urine Ketones (Stick) Negative mg/dL (NEG) Urine Blood Negative (NEG) Urine Nitrite Negative (NEG) Urine Bilirubin Negative (NEG) Urine Urobilinogen Dipstick 1.0 mg/dL (0.2 mg/dL) Urine Leukocyte Esterase Negative (NEG) Urine RBC 0 /HPF (0-2) Urine WBC 0 /HPF (0-4) Urine Squamous Epithelial Cells Occ /LPF Urine Bacteria Few /HPF (0-FEW) Urine Mucus Marked /LPF Urine Opiates Screen Pos (NEG) Urine Methadone Screen Neg (NEG) Urine Barbiturates Neg (NEG) Urine Phencyclidine Screen Neg (NEG) Urine Amphetamine/Methamphetamine Neg (NEG) Urine Benzodiazepines Screen Neg (NEG) Urine Cocaine Screen Pos (NEG) Urine Cannabinoids Screen Neg (NEG) Urine Ethyl Alcohol Neg (NEG) Bedside Urine HCG, Qualitative Hcg negative (Negative) White Blood Count 6.7 x10^3/uL (4.0-11.0) Red Blood Count 3.93 x10^6/uL (3.50-5.40) Hemoglobin 11.7 g/dL (12.0-15.5) Hematocrit 35.0 % (36.0-47.0) Mean Corpuscular Volume 89 fL (79-100) Mean Corpuscular Hemoglobin 30 pg (25-35) Mean Corpuscular Hemoglobin Concent 33 g/dL (31-37) Red Cell Distribution Width 13.5 % (11.5-14.5) Platelet Count 278 x10^3/uL (140-400) Neutrophils (%) (Auto) 50 % (31-73) Lymphocytes (%) (Auto) 42 % (24-48) Monocytes (%) (Auto) 8 % (0-9) Eosinophils (%) (Auto) 0 % (0-3) Basophils (%) (Auto) 0 % (0-3) Neutrophils # (Auto) 3.3 x10^3uL (1.8-7.7) Lymphocytes # (Auto) 2.8 x10^3/uL (1.0-4.8) Monocytes # (Auto) 0.5 x10^3/uL (0.0-1.1) Eosinophils # (Auto) 0.0 x10^3/uL (0.0-0.7) Basophils # (Auto) 0.0 x10^3/uL (0.0-0.2) Sodium Level 141 mmol/L (136-145) Potassium Level 3.6 mmol/L (3.5-5.1) Chloride Level 104 mmol/L (98-107) Carbon Dioxide Level 27 mmol/L (21-32) Anion Gap 10 (6-14) Blood Urea Nitrogen 8 mg/dL (7-20) Creatinine 0.6 mg/dL (0.6-1.0) Estimated GFR (Cockcroft-Gault) 136.9 BUN/Creatinine Ratio 13 (6-20) Glucose Level 103 mg/dL (70-99) Calcium Level 9.3 mg/dL (8.5-10.1) Magnesium Level 2.1 mg/dL (1.8-2.4) Total Bilirubin 0.4 mg/dL (0.2-1.0) Aspartate Amino Transf (AST/SGOT) 13 U/L (15-37) Alanine Aminotransferase (ALT/SGPT) 15 U/L (14-59) Alkaline Phosphatase 51 U/L (46-116) Total Protein 7.5 g/dL (6.4-8.2) Albumin 3.9 g/dL (3.4-5.0) Albumin/Globulin Ratio 1.1 (1.0-1.7) Lipase 69 U/L (73-393) VTE Prophylaxis Ordered VTE Prophylaxis Devices: No VTE Pharmacological Prophylaxi: Yes Assessment/Plan Assessment/Plan acute abd pain, cystic lesion on CT scan, Gen surg eval IR consult for fluid drainage, pain control, admit GONSALO WOOTEN MD May 17, 2017 17:04
[2017-05-17] MEDS: HYDROcodone/APAP 5/325MG 1 TAB TABLET PO PRN (17:45)
[2017-05-17] MEDS ORDERED: ZOLP10TA PO (17:47)
[2017-05-17 19:15] VITALS: BP 119/77
[2017-05-17] MEDS: ZOLPIDEM 5 MG TABLET. PO PRN (21:14)
[2017-05-17] MEDS: ALPRAZolam 0.5 MG TABLET PO PRN (21:15)
[2017-05-17] MEDS: diphenhydrAMINE HCL 25 MG CAPSULE PO PRN (21:43)
[2017-05-17 23:00] VITALS: BP 102/66
[2017-05-18] MEDS: fentaNYL PF VIAL 100 MCG/2 ML VIAL IV PRN ×9 (02:25→23:20)
[2017-05-18 03:00] VITALS: BP 97/60
[2017-05-18 06:30] LABS: BASO % 0 % (0-3); EOS % 0 % (0-3); HEMATOCRIT 33.5 % (36.0-47.0); HEMOGLOBIN 11.3 g/dL (12.0-15.5); LYMPH % 42 % (24-48); MEAN CORPUSCULAR HEMOGLOBIN 30 pg (25-35); MEAN CORPUSCULAR HGB CONC 34 g/dL (31-37); MEAN CORPUSCULAR VOLUME 88 fL (79-100); MONO % 8 % (0-9); NEUT % 50 % (31-73); PLATELET COUNT 269 x10^3/uL (140-400); RED BLOOD COUNT 3.79 x10^6/uL (3.50-5.40); RED CELL DISTRIBUTION WIDTH 13.5 % (11.5-14.5); WHITE BLOOD COUNT 7.2 x10^3/uL (4.0-11.0)
[2017-05-18 06:40] LABS: CALCIUM 8.7 mg/dL (8.5-10.1); CREATININE 0.8 mg/dL (0.6-1.0); GFR 98.2; POTASSIUM 3.5 mmol/L (3.5-5.1)
[2017-05-18 07:00] VITALS: BP 104/68
[2017-05-18] MEDS: NEOMYCIN/POLYMYXIN/HC OTIC SUSPENSION 10ML BOTTLE. AS SCH ×4 (08:29→20:21)
[2017-05-18] MEDS: HYDROcodone/APAP 5/325MG 1 TAB TABLET PO PRN ×3 (08:30→21:09)
[2017-05-18 10:58] VITALS: BP 99/51
[2017-05-18] MEDS: ONDANSETRON PF 4 MG/2 ML VIAL. IV PRN (11:05)
[2017-05-18] MEDS ORDERED: POTASSIUM CHLORIDE 20 MEQ TABLET.ER. PO ONE (12:00)
--- NOTE | 2017-05-18 12:17 | PDOC ---
Provider Note Provider Note IR NOTE Patient is a 36 year old female with a recurrent fluid collection in the anterior abdominal wall adjacent to mesh repair for ventral hernia. She has had this aspirated several times in the past. She comes in with abdominal pain, and left facial and ear pain. We discussed the fact that there is no clinical sign of infection and that aspiration is not necessary, however if she feels it has provided significant relief of abdominal pain in the past, she could choose to have it electively aspirated. She is not currently NPO. This could be done as in or out patient. She would like to think it over. I gave her our contact information and asked her nurse to call IR with any questions. BENJAMIN SEGUNDO MD May 18, 2017 12:17
[2017-05-18] MEDS: oxyCODONE IR 5 MG TABLET PO PRN ×2 (12:22→18:29)
[2017-05-18] MEDS: ALPRAZolam 0.5 MG TABLET PO PRN ×2 (12:23→21:09)
--- NOTE | 2017-05-18 14:00 | PDOC ---
SURGICAL PROGRESS NOTE Subjective Jadiel is requesting aspiration of her fluid collection since she believes it will help her abdominal pain. I explained to her that the appearance is very similar to what was in 2014. She will discuss it with interventional radiology. She took a full breakfast and is ready to start her regular diet for lunch. Her main complaint is pain in her left ear with "knocks" on her neck and making her "brain hurt". Vital Signs Vital Signs Date Time Temp Pulse Resp B/P (MAP) Pulse Ox O2 Delivery O2 Flow Rate FiO2 05/18/17 13:09 20 97 Room Air 05/18/17 10:58 98.1 87 99/51 (67) 98.1 I&O Intake and Output 05/19/17 07:00 Intake Total 600 ml Balance 600 ml Intake Oral 600 ml PATIENT HAS A CARRENO: No General: Alert, Oriented X3 Abdomen: Soft Labs Laboratory Tests Test 05/17/17 11:07 05/17/17 11:13 05/17/17 11:30 05/18/17 05:20 Urine Collection Type Unknown Urine Color Rosa Urine Clarity Clear Urine pH 6.5 Urine Specific [employer] >=1.030 Urine Protein 30 mg/dL (NEG-TRACE) Urine Glucose (UA) Negative mg/dL (NEG) Urine Ketones (Stick) Negative mg/dL (NEG) Urine Blood Negative (NEG) Urine Nitrite Negative (NEG) Urine Bilirubin Negative (NEG) Urine Urobilinogen Dipstick 1.0 mg/dL (0.2 mg/dL) Urine Leukocyte Esterase Negative (NEG) Urine RBC 0 /HPF (0-2) Urine WBC 0 /HPF (0-4) Urine Squamous Epithelial Cells Occ /LPF Urine Bacteria Few /HPF (0-FEW) Urine Mucus Marked /LPF Urine Opiates Screen Pos (NEG) Urine Methadone Screen Neg (NEG) Urine Barbiturates Neg (NEG) Urine Phencyclidine Screen Neg (NEG) Urine Amphetamine/Methamphetamine Neg (NEG) Urine Benzodiazepines Screen Neg (NEG) Urine Cocaine Screen Pos (NEG) Urine Cannabinoids Screen Neg (NEG) Urine Ethyl Alcohol Neg (NEG) Bedside Urine HCG, Qualitative Hcg negative (Negative) White Blood Count 6.7 x10^3/uL (4.0-11.0) 7.2 x10^3/uL (4.0-11.0) Red Blood Count 3.93 x10^6/uL (3.50-5.40) 3.79 x10^6/uL (3.50-5.40) Hemoglobin 11.7 g/dL (12.0-15.5) 11.3 g/dL (12.0-15.5) Hematocrit 35.0 % (36.0-47.0) 33.5 % (36.0-47.0) Mean Corpuscular Volume 89 fL (79-100) 88 fL (79-100) Mean Corpuscular Hemoglobin 30 pg (25-35) 30 pg (25-35) Mean Corpuscular Hemoglobin Concent 33 g/dL (31-37) 34 g/dL (31-37) Red Cell Distribution Width 13.5 % (11.5-14.5) 13.5 % (11.5-14.5) Platelet Count 278 x10^3/uL (140-400) 269 x10^3/uL (140-400) Neutrophils (%) (Auto) 50 % (31-73) 50 % (31-73) Lymphocytes (%) (Auto) 42 % (24-48) 42 % (24-48) Monocytes (%) (Auto) 8 % (0-9) 8 % (0-9) Eosinophils (%) (Auto) 0 % (0-3) 0 % (0-3) Basophils (%) (Auto) 0 % (0-3) 0 % (0-3) Neutrophils # (Auto) 3.3 x10^3uL (1.8-7.7) 3.6 x10^3uL (1.8-7.7) Lymphocytes # (Auto) 2.8 x10^3/uL (1.0-4.8) 3.0 x10^3/uL (1.0-4.8) Monocytes # (Auto) 0.5 x10^3/uL (0.0-1.1) 0.6 x10^3/uL (0.0-1.1) Eosinophils # (Auto) 0.0 x10^3/uL (0.0-0.7) 0.0 x10^3/uL (0.0-0.7) Basophils # (Auto) 0.0 x10^3/uL (0.0-0.2) 0.0 x10^3/uL (0.0-0.2) Sodium Level 141 mmol/L (136-145) 142 mmol/L (136-145) Potassium Level 3.6 mmol/L (3.5-5.1) 3.5 mmol/L (3.5-5.1) Chloride Level 104 mmol/L (98-107) 107 mmol/L (98-107) Carbon Dioxide Level 27 mmol/L (21-32) 27 mmol/L (21-32) Anion Gap 10 (6-14) 8 (6-14) Blood Urea Nitrogen 8 mg/dL (7-20) 9 mg/dL (7-20) Creatinine 0.6 mg/dL (0.6-1.0) 0.8 mg/dL (0.6-1.0) Estimated GFR (Cockcroft-Gault) 136.9 98.2 BUN/Creatinine Ratio 13 (6-20) Glucose Level 103 mg/dL (70-99) 114 mg/dL (70-99) Calcium Level 9.3 mg/dL (8.5-10.1) 8.7 mg/dL (8.5-10.1) Magnesium Level 2.1 mg/dL (1.8-2.4) Total Bilirubin 0.4 mg/dL (0.2-1.0) Aspartate Amino Transf (AST/SGOT) 13 U/L (15-37) Alanine Aminotransferase (ALT/SGPT) 15 U/L (14-59) Alkaline Phosphatase 51 U/L (46-116) Total Protein 7.5 g/dL (6.4-8.2) Albumin 3.9 g/dL (3.4-5.0) Albumin/Globulin Ratio 1.1 (1.0-1.7) Lipase 69 U/L (73-393) Laboratory Tests Test 05/18/17 05:20 White Blood Count 7.2 x10^3/uL (4.0-11.0) Red Blood Count 3.79 x10^6/uL (3.50-5.40) Hemoglobin 11.3 g/dL (12.0-15.5) Hematocrit 33.5 % (36.0-47.0) Mean Corpuscular Volume 88 fL (79-100) Mean Corpuscular Hemoglobin 30 pg (25-35) Mean Corpuscular Hemoglobin Concent 34 g/dL (31-37) Red Cell Distribution Width 13.5 % (11.5-14.5) Platelet Count 269 x10^3/uL (140-400) Neutrophils (%) (Auto) 50 % (31-73) Lymphocytes (%) (Auto) 42 % (24-48) Monocytes (%) (Auto) 8 % (0-9) Eosinophils (%) (Auto) 0 % (0-3) Basophils (%) (Auto) 0 % (0-3) Neutrophils # (Auto) 3.6 x10^3uL (1.8-7.7) Lymphocytes # (Auto) 3.0 x10^3/uL (1.0-4.8) Monocytes # (Auto) 0.6 x10^3/uL (0.0-1.1) Eosinophils # (Auto) 0.0 x10^3/uL (0.0-0.7) Basophils # (Auto) 0.0 x10^3/uL (0.0-0.2) Sodium Level 142 mmol/L (136-145) Potassium Level 3.5 mmol/L (3.5-5.1) Chloride Level 107 mmol/L (98-107) Carbon Dioxide Level 27 mmol/L (21-32) Anion Gap 8 (6-14) Blood Urea Nitrogen 9 mg/dL (7-20) Creatinine 0.8 mg/dL (0.6-1.0) Estimated GFR (Cockcroft-Gault) 98.2 Glucose Level 114 mg/dL (70-99) Calcium Level 8.7 mg/dL (8.5-10.1) Problem List Problems Medical Problems: (1) Chronic abdominal pain Status: Acute (2) Drug abuse Status: Acute (3) Otitis externa Status: Acute Assessment/Plan Chronic abdominal pain with recurrent seroma by CT possibly associated with mesh. Tentatively scheduled for CT-guided aspiration tomorrow. No acute surgical recommendations. Discussed with Drs. Funez and Vidal Problems: WILDER BRYANT MD May 18, 2017 14:00
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
--- NOTE | 2017-05-18 14:24 | CONS ---
DATE OF CONSULTATION: 05/17/2017 This note is dictated from the note entered on day of consult 05/17/2017. HISTORY OF PRESENT ILLNESS: The patient is a 36-year-old female admitted through ER with abdominal pain in the left periumbilical area along with nausea and vomiting. In reviewing the records, she had had mesh placed in 2003 at [facility] during a hiatal hernia repair, although she states this mesh was placed in the abdominal wall. She was seen in consultation in [address] Funez. She is here to discuss possible removal of the mesh given the recurrent state of the seroma seen on CT scan done in the ED here. PAST MEDICAL HISTORY: Surgery as above. Medically, denies any heart, lung or kidney problems. FAMILY HISTORY: Noncontributory. SOCIAL HISTORY: She is a nonsmoker who does not use alcohol. ALLERGIES: She is allergic to PENICILLIN, ACETAMINOPHEN, BUTORPHANOL TARTRATE, IBUPROFEN, LATEX and OXYCODONE. ROUTINE MEDICATIONS: Listed on reconciliation sheet. REVIEW OF SYSTEMS: GENERAL: Denies chills or fevers. HEENT: Complaining of left ear pain with bleeding at times causing "knots on her neck" and making her "brain hurt." CARDIAC: Denies chest pain or palpitations. RESPIRATORY: No productive cough or wheezing. GASTROINTESTINAL: See history of present illness. PHYSICAL EXAMINATION: GENERAL: Reveals a well-developed, well-nourished female, awake, alert and oriented, in no acute distress. Her main concern at the time of exam was not being able to eat due to an n.p.o. order on presentation. VITAL SIGNS: She is afebrile, heart rate 85, blood pressure 119/81. HEENT: She is normocephalic. NECK: Supple. LUNGS: Clear. HEART: Regular rate and rhythm. ABDOMEN: The belly is soft and nondistended. There is some mild tenderness to palpation without appreciable mass. PELVIC AND RECTAL: Deferred. EXTREMITIES: Showed no gross skeletal abnormalities. NEUROLOGIC: She is intact. ADMISSION LABORATORY DATA: Showed a white count of 6.7, hemoglobin of 11.7. Chemistries were unremarkable. Urine screen is positive for cocaine and opiates. CT scan of the abdomen and pelvis shows a well-defined cystic abnormality in the right mid abdomen essentially unchanged from 02/2014. IMPRESSION: Abdominal pain, nausea and recurrent cystic mass in the abdomen, thought to be the result of some mesh placed at a previous surgery at another hospital. PLAN: No acute surgical recommendations at this point. Agree with consult for Interventional Radiology for possible aspiration of the fluid. Discussed this with the patient's and questions were answered. We will follow her with you during her hospitalization. I will discuss her findings with Dr. Funez who has seen her previously. WILDER BRYANT MD DR: SANTA/nyasia JOB#: [id number] / [id number]
[2017-05-18 14:51] VITALS: BP 125/78
[2017-05-18] MEDS ORDERED: FLU VACC QS2017-18 (36MOS+)/PF 0.5 ML SYRINGE. VAX IM ONE (15:15)
[2017-05-18 19:00] VITALS: BP 137/83
[2017-05-18] MEDS: diphenhydrAMINE HCL 25 MG CAPSULE PO PRN (20:22)
[2017-05-18] MEDS: ZOLPIDEM 5 MG TABLET. PO PRN (20:22)
[2017-05-18 23:00] VITALS: BP 109/71
[2017-05-19] MEDS: fentaNYL PF VIAL 100 MCG/2 ML VIAL IV PRN ×4 (02:59→12:53)
[2017-05-19 04:06] VITALS: BP 99/65
[2017-05-19] MEDS: HYDROcodone/APAP 5/325MG 1 TAB TABLET PO PRN (04:24)
[2017-05-19 05:06] LABS: PROTHROMBIN TIME PATIENT 12.2 SEC (11.7-14.0)
[2017-05-19 07:00] VITALS: BP 93/62
[2017-05-19] MEDS: NEOMYCIN/POLYMYXIN/HC OTIC SUSPENSION 10ML BOTTLE. AS SCH ×2 (08:31→12:53)
[2017-05-19] MEDS ORDERED: LIDOCAINE 1% / SOD BICARB 8.4% 20 ML VIAL. IJ ONE ×2 (08:52→09:30)
[2017-05-19] MEDS ORDERED: MIDAZOLAM HCL/PF 2 MG/2 ML VIAL. ONE (09:14)
[2017-05-19] MEDS ORDERED: fentaNYL PF VIAL 100 MCG/2 ML VIAL ONE (09:14)
[2017-05-19 09:19] VITALS: BP 111/73
[2017-05-19 09:22] VITALS: BP 116/68
[2017-05-19] MEDS ORDERED: diphenhydrAMINE 50 MG/ML VIAL ONE (09:23)
[2017-05-19 09:29] VITALS: BP 121/77
[2017-05-19] MEDS ORDERED: diphenhydrAMINE 50 MG/ML VIAL IVP ONE (09:30)
[2017-05-19] MEDS ORDERED: MIDAZOLAM HCL/PF 2 MG/2 ML VIAL. IV ONE (09:30)
[2017-05-19] MEDS ORDERED: fentaNYL PF VIAL 100 MCG/2 ML VIAL IV ONE (09:30)
[2017-05-19] MEDS: oxyCODONE IR 5 MG TABLET PO PRN (10:53)
[2017-05-19 11:00] VITALS: BP 111/82
[2017-05-19] MEDS ORDERED: HYDR-971 PO (11:09)
--- NOTE | 2017-05-19 12:34 | RAD ---
Ultrasound-guided aspiration of anterior abdominal wall seroma 05/19/2017 Indication: Anterior abdominal wall seroma. Abdominal pain. Multiple prior aspirations and resultant improvement of patient's symptoms. Discussion: The risks and benefits of the procedure were discussed the patient. Informed consent was obtained. Timeout procedure was performed. Anterior abdomen was prepped and draped using sterile barrier technique. Ultrasound was used to identify the previously seen fluid collection in the anterior abdominal wall just to the right of a surgical mesh. 1% lidocaine without epinephrine was administered to the skin and subcutaneous tissues. A 5 [place] AOTMPeh needle was advanced into the collection under direct ultrasound guidance. Reference ultrasound images were stored medical record. Approximately 100 cc of serous fluid was aspirated. Samples of this fluid were sent for further evaluation per ordering physician request. Sheath was removed. No immediate complications were identified. A sterile dressing was applied. The procedures performed under conscious sedation including continuous cardiopulmonary monitoring via dedicated sedation nurse. Sedation time: 25 minutes Impression: Successful ultrasound-guided aspiration of anterior abdominal wall fluid collection
--- NOTE | 2017-05-19 12:46 | PDOC ---
SURGICAL PROGRESS NOTE Subjective had aspiration earlier waiting for her aunt to get off work this afternoon for a ride home ate her regular breakfast Vital Signs Vital Signs Date Time Temp Pulse Resp B/P (MAP) Pulse Ox O2 Delivery O2 Flow Rate FiO2 05/19/17 11:00 97.9 77 20 111/82 (92) 100 Room Air 97.9 05/19/17 09:29 2.0 PATIENT HAS A CARRENO: No General: Alert, Oriented X3, No acute distress Abdomen: Soft Labs Laboratory Tests Test 05/18/17 05:20 05/19/17 03:45 White Blood Count 7.2 x10^3/uL (4.0-11.0) Red Blood Count 3.79 x10^6/uL (3.50-5.40) Hemoglobin 11.3 g/dL (12.0-15.5) Hematocrit 33.5 % (36.0-47.0) Mean Corpuscular Volume 88 fL (79-100) Mean Corpuscular Hemoglobin 30 pg (25-35) Mean Corpuscular Hemoglobin Concent 34 g/dL (31-37) Red Cell Distribution Width 13.5 % (11.5-14.5) Platelet Count 269 x10^3/uL (140-400) Neutrophils (%) (Auto) 50 % (31-73) Lymphocytes (%) (Auto) 42 % (24-48) Monocytes (%) (Auto) 8 % (0-9) Eosinophils (%) (Auto) 0 % (0-3) Basophils (%) (Auto) 0 % (0-3) Neutrophils # (Auto) 3.6 x10^3uL (1.8-7.7) Lymphocytes # (Auto) 3.0 x10^3/uL (1.0-4.8) Monocytes # (Auto) 0.6 x10^3/uL (0.0-1.1) Eosinophils # (Auto) 0.0 x10^3/uL (0.0-0.7) Basophils # (Auto) 0.0 x10^3/uL (0.0-0.2) Sodium Level 142 mmol/L (136-145) Potassium Level 3.5 mmol/L (3.5-5.1) Chloride Level 107 mmol/L (98-107) Carbon Dioxide Level 27 mmol/L (21-32) Anion Gap 8 (6-14) Blood Urea Nitrogen 9 mg/dL (7-20) Creatinine 0.8 mg/dL (0.6-1.0) Estimated GFR (Cockcroft-Gault) 98.2 Glucose Level 114 mg/dL (70-99) Calcium Level 8.7 mg/dL (8.5-10.1) Prothrombin Time 12.2 SEC (11.7-14.0) Prothromb Time International Ratio 1.0 (0.8-1.1) Laboratory Tests Test 05/19/17 03:45 Prothrombin Time 12.2 SEC (11.7-14.0) Prothromb Time International Ratio 1.0 (0.8-1.1) I have reviewed the following procedure note reviewed Problem List Problems Medical Problems: (1) Chronic abdominal pain Status: Acute (2) Drug abuse Status: Acute (3) Otitis externa Status: Acute Assessment/Plan s/p US guided aspiration of abdominal wall fluid collection home today outpatient follow up with Dr Funez Problems: WILDER BRYANT MD May 19, 2017 12:46
[2017-05-19] MEDS ORDERED: ZOLP10TA PO (13:10)
== END 2017-05-19 13:57 | disposition home or self-care (01) | DRG 921 ==
LOC: ER 11:01 → 5 NORTH 13:11
PROVIDERS: ADMIT Internal Medicine; ATTEND Internal Medicine
PROC: 0W9F3ZZ Drainage of Abdominal Wall, Percutaneous Approach (ICD-10-PCS; principal; 2017-05-17)
DX: T85.9XXA Unspecified complication of internal prosthetic device, implant and graft, initial encounter (principal); G89.29 Other chronic pain; H60.90 Unspecified otitis externa, unspecified ear; J45.909 Unspecified asthma, uncomplicated; Y83.8 Other surgical procedures as the cause of abnormal reaction of the patient, or of later complication, without mention of misadventure at the time of the procedure; N93.9 Abnormal uterine and vaginal bleeding, unspecified; Z90.49 Acquired absence of other specified parts of digestive tract; Z87.440 Personal history of urinary (tract) infections; Z88.5 Allergy status to narcotic agent; Z88.0 Allergy status to penicillin; Z88.8 Allergy status to other drugs, medicaments and biological substances; Z88.1 Allergy status to other antibiotic agents; Z91.040 Latex allergy status; Y92.89 Other specified places as the place of occurrence of the external cause
CPT/HCPCS: 10022; 36415; 74177; 76942; 80048; 80053; 80307; 81001; 81025; 83690; 83735; 85025; 85610; 87071; 87075; 87205; 90686; 96374; 96375; 99152; 99153; J1200; J2250; J2405; J3010; Q0163; Q9967; 99285-25; G0479

== ENCOUNTER 2018-06-09 12:27 | Inpatient (IN) | payer SELFPAY ==
[~2018-06-09] VITALS: Ht 160 cm; Wt 63.5 kg
[~2018-06-09 12:27] MED LIST changes: +ZOLP10TA PO
[2018-06-09] MEDS ORDERED: MORPHINE SULFATE 4 MG/ML VIAL. IV ONE ×2 (13:45→15:45)
[2018-06-09] MEDS ORDERED: ONDANSETRON PF 4 MG/2 ML VIAL. IV ONE ×2 (13:45→16:45)
[2018-06-09 14:02] LABS: BILIRUBIN,URINE NEGATIVE (NEG); CLARITY,URINE CLEAR; COLOR,URINE YELLOW; NITRITE,URINE NEGATIVE (NEG); PROTEIN,URINE NEGATIVE (NEG-TRACE); UROBILINOGEN,URINE 0.2 mg/dL (0.2 mg/dL)
[2018-06-09 14:14] LABS: BACTERIA,URINE 0 /HPF (0-FEW); RBC,URINE 0 /HPF (0-2); SQUAMOUS EPITHELIAL CELL,UR FEW /LPF; WBC,URINE 0 /HPF (0-4)
[2018-06-09] MEDS ORDERED: IOHEXOL 300 MG/ML 100ML VIAL. IV ONE (14:30)
[2018-06-09] MEDS ORDERED: CONTRAST GIVEN. MC PRN (14:30)
[2018-06-09 14:52] LABS: BASO # 0.1 x10^3/uL (0.0-0.2); BASO % 1 % (0-3); EOS % 1 % (0-3); HEMATOCRIT 30.2 % (36.0-47.0); LYMPH # 3.4 x10^3/uL (1.0-4.8); LYMPH % 55 % (24-48); MEAN CORPUSCULAR HEMOGLOBIN 27 pg (25-35); MEAN CORPUSCULAR HGB CONC 33 g/dL (31-37); MEAN CORPUSCULAR VOLUME 80 fL (79-100); MONO # 0.5 x10^3/uL (0.0-1.1); MONO % 7 % (0-9); NEUT # 2.2 x10^3uL (1.8-7.7); NEUT % 36 % (31-73); PLATELET COUNT 289 x10^3/uL (140-400); RED BLOOD COUNT 3.79 x10^6/uL (3.50-5.40); RED CELL DISTRIBUTION WIDTH 19.8 % (11.5-14.5); WHITE BLOOD COUNT 6.1 x10^3/uL (4.0-11.0)
[2018-06-09 15:03] LABS: CALCIUM 8.8 mg/dL (8.5-10.1); CREATININE 0.7 mg/dL (0.6-1.0); GFR 113.9; POTASSIUM 4.2 mmol/L (3.5-5.1)
[2018-06-09 15:09] LABS: ALBUMIN 4.1 g/dL (3.4-5.0); TOTAL BILIRUBIN 0.2 mg/dL (0.2-1.0); TOTAL PROTEIN 8.1 g/dL (6.4-8.2)
[2018-06-09] MEDS ORDERED: diphenhydrAMINE HCL 25 MG CAPSULE PO ONE (15:15)
--- NOTE | 2018-06-09 15:56 | RAD ---
CT Abdomen and Pelvis With Intravenous Contrast: History: Abdominal pain. Comparison: CT abdomen pelvis May 17, 2017. Technique: After administration of intravenous contrast, 75 mL Omnipaque-300, CT of the abdomen and pelvis was performed. Exposure: One or more of the following individualized dose reduction techniques were utilized for this examination: 1. Automated exposure control 2. Adjustment of the mA and/or kV according to patient size 3. Use of iterative reconstruction technique Findings: Evaluation of enteric structures may be limited by lack of oral contrast. Liver, spleen, bilateral adrenal glands, pancreas, and gallbladder are unremarkable. Bilateral kidneys enhance symmetrically. No bowel obstruction or inflammation is seen. Post surgical changes of appendectomy can be seen. Urinary bladder is unremarkable. Uterus has unremarkable appearance, demonstrating endometrial fluid versus thickening, probably related to menstrual cycle. Right ovary demonstrates 4.1 cm cyst. Left ovary has appropriate size. Again visualized is a cystic-appearing lesion involving the upper abdomen. This is located posterior to mesh and the transverse colon. Rough dimension are 6.3 x 4.2 cm in axial dimension x 6.4 cm in craniocaudal dimension. This is thought to be overall similar in volume to the previous study, although there does appear to be different orientation. No free air is identified. Impression: 1. Again visualized is cystic appearing lesion in the upper abdomen. This measures roughly 6.3 x 4.2 x 6.4 cm. This thought to be without significant change in volume from previous study. Possibilities are chronic postoperative seroma versus mesenteric or enteric duplication cyst. 2. Right ovarian cyst measuring 4.1 cm. If there is concern for torsion, pelvic ultrasound could be performed. 3. Ventral hernia repair with mesh. No recurrent hernia is identified. Electronically signed by: Derrick Garcia MD (06/09/2018 3:53 PM) [place] [id number]
--- NOTE | 2018-06-09 16:15 | PHYS DOC ---
Past Medical History Past Medical History: Arthritis, Asthma, UTI, Other Additional Past Medical Histor: RA, FLUID ON KNEE Past Surgical History: Appendectomy, , Other Additional Past Surgical Histo: hiatal hernia, TOOTH EXTRACTION, ABD MESH Alcohol Use: None Drug Use: None Adult General Chief Complaint Chief Complaint: ABDOMINAL PAIN HPI HPI Patient is a 37 year old f who presents to the ED for evaluation of R upper abdominal pain. Pt reports pain constant x 1 week, severe, 9-10/10, sharp. Worse with movement. Unable to go to work today 2/2 pain. Denies previous episodes, no dysuria, no hematuria, Reports some chronic issues with uncontrolled GERD 2/2 report of hiatal hernia. Pain not affected by PO intake. Review of Systems Review of Systems Constitutional: Denies fever or chills [] Eyes: Denies change in visual acuity, redness, or eye pain [] HENT: Denies nasal congestion or sore throat [] Respiratory: Denies cough or shortness of breath [] Cardiovascular: Chest pain, no orthopnea, no lower extremity edema GI: Denies nausea, vomiting, bloody stools or diarrhea [] : Denies dysuria or hematuria [] Musculoskeletal: Denies back pain or joint pain [] Integument: Denies rash or skin lesions [] Neurologic: Denies headache, focal weakness or sensory changes [] Endocrine: Denies polyuria or polydipsia [] All other systems were reviewed and found to be within normal limits, except as documented in this note. Current Medications Current Medications Current Medications Medications (Trade) Dose Ordered Sig/Wolfgang Start Time Stop Time Status Last Admin Dose Admin Diphenhydramine HCl (Benadryl) 50 mg 1X ONCE 06/09/18 15:15 06/09/18 15:16 DC 06/09/18 15:33 50 MG Info (CONTRAST GIVEN -- Rx MONITORING) 1 each PRN DAILY PRN 06/09/18 14:30 06/11/18 14:29 Iohexol (Omnipaque 300 Mg/ml) 75 ml 1X ONCE 06/09/18 14:30 06/09/18 14:31 DC 06/09/18 14:30 75 ML Morphine Sulfate (Morphine Sulfate) 4 mg 1X ONCE 06/09/18 15:45 06/09/18 15:46 DC 06/09/18 15:54 4 MG Ondansetron HCl (Zofran) 8 mg 1X ONCE 06/09/18 13:45 06/09/18 13:46 DC 06/09/18 14:55 8 MG Allergies Allergies Allergies Coded Allergies Type Severity Reaction Last Updated Verified Penicillins Allergy Intermediate 02/06/17 Yes ibuprofen Allergy Intermediate 02/06/17 Yes latex Allergy Intermediate 02/06/17 Yes acetaminophen Adverse Reaction Intermediate Itching 10/25/16 Yes butorphanol tartrate Adverse Reaction Intermediate Anxiety 10/25/16 Yes oxycodone Adverse Reaction Intermediate Itching 10/25/16 Yes Physical Exam Physical Exam Constitutional: Well developed, well nourished, moderate distress, non-toxic appearance. [] HENT: Normocephalic, atraumatic, Eyes: PERRLA, EOMI, [] Neck: Normal range of motion, no tenderness, supple, no stridor. [] Cardiovascular:Heart rate regular rhythm, no murmur [] Lungs & Thorax: Bilateral breath sounds clear to auscultation [] Abdomen: Bowel sounds normal, soft, moderate R randy-umbilical tenderness. Negative murphys. No RLQ tenderness, no masses, no pulsatile masses. [] Skin: Warm, dry, no erythema, no rash. [] Back: No tenderness, no CVA tenderness. [] Extremities: No tenderness,, no edema. [] Neurologic: Alert and oriented X 3, no focal deficits noted. [] Psychologic: Affect normal, judgement normal, mood normal. [] Current Patient Data Vital Signs Vital Signs Date Time Temp Pulse Resp B/P (MAP) Pulse Ox O2 Delivery O2 Flow Rate FiO2 06/09/18 15:54 24 100 Room Air 06/09/18 13:35 98.4 98 136/92 (107) 98.4 Lab Values Laboratory Tests Test 06/09/18 13:38 06/09/18 13:40 06/09/18 14:45 Urine Collection Type Void Urine Color Yellow Urine Clarity Clear Urine pH 6.0 Urine Specific [place] 1.025 Urine Protein Negative mg/dL (NEG-TRACE) Urine Glucose (UA) Negative mg/dL (NEG) Urine Ketones (Stick) Negative mg/dL (NEG) Urine Blood Negative (NEG) Urine Nitrite Negative (NEG) Urine Bilirubin Negative (NEG) Urine Urobilinogen Dipstick 0.2 mg/dL (0.2 mg/dL) Urine Leukocyte Esterase Negative (NEG) Urine RBC 0 /HPF (0-2) Urine WBC 0 /HPF (0-4) Urine Squamous Epithelial Cells Few /LPF Urine Bacteria 0 /HPF (0-FEW) Urine Mucus Slight /LPF POC Urine HCG, Qualitative Hcg negative (Negative) White Blood Count 6.1 x10^3/uL (4.0-11.0) Red Blood Count 3.79 x10^6/uL (3.50-5.40) Hemoglobin 10.0 g/dL (12.0-15.5) L Hematocrit 30.2 % (36.0-47.0) L Mean Corpuscular Volume 80 fL (79-100) Mean Corpuscular Hemoglobin 27 pg (25-35) Mean Corpuscular Hemoglobin Concent 33 g/dL (31-37) Red Cell Distribution Width 19.8 % (11.5-14.5) H Platelet Count 289 x10^3/uL (140-400) Neutrophils (%) (Auto) 36 % (31-73) Lymphocytes (%) (Auto) 55 % (24-48) H Monocytes (%) (Auto) 7 % (0-9) Eosinophils (%) (Auto) 1 % (0-3) Basophils (%) (Auto) 1 % (0-3) Neutrophils # (Auto) 2.2 x10^3uL (1.8-7.7) Lymphocytes # (Auto) 3.4 x10^3/uL (1.0-4.8) Monocytes # (Auto) 0.5 x10^3/uL (0.0-1.1) Eosinophils # (Auto) 0.0 x10^3/uL (0.0-0.7) Basophils # (Auto) 0.1 x10^3/uL (0.0-0.2) Sodium Level 140 mmol/L (136-145) Potassium Level 4.2 mmol/L (3.5-5.1) Chloride Level 104 mmol/L (98-107) Carbon Dioxide Level 25 mmol/L (21-32) Anion Gap 11 (6-14) Blood Urea Nitrogen 11 mg/dL (7-20) Creatinine 0.7 mg/dL (0.6-1.0) Estimated GFR (Cockcroft-Gault) 113.9 BUN/Creatinine Ratio 16 (6-20) Glucose Level 83 mg/dL (70-99) Calcium Level 8.8 mg/dL (8.5-10.1) Total Bilirubin 0.2 mg/dL (0.2-1.0) Aspartate Amino Transferase (AST) 52 U/L (15-37) H Alanine Aminotransferase (ALT) 129 U/L (14-59) H Alkaline Phosphatase 64 U/L (46-116) Total Protein 8.1 g/dL (6.4-8.2) Albumin 4.1 g/dL (3.4-5.0) Albumin/Globulin Ratio 1.0 (1.0-1.7) Lipase 174 U/L (73-393) Laboratory Tests 06/09/18 14:45 Laboratory Tests 06/09/18 14:45 EKG EKG [] Radiology/Procedures Radiology/Procedures CT ABD/Pelvis Impression: 1. Again visualized is cystic appearing lesion in the upper abdomen. This measures roughly 6.3 x 4.2 x 6.4 cm. This thought to be without significant change in volume from previous study. Possibilities are chronic postoperative seroma versus mesenteric or enteric duplication cyst. 2. Right ovarian cyst measuring 4.1 cm. If there is concern for torsion, pelvic ultrasound could be performed. 3. Ventral hernia repair with mesh. No recurrent hernia is identified. Electronically signed by: Derrick Garcia MD (06/09/2018 3:53 PM) [facility][] Course & Med Decision Making Course & Med Decision Making Pertinent Labs and Imaging studies reviewed. (See chart for details) []1613: CT as above. This was discussed with patient. At this time patient stating that she has had a history of this recurring in the past requiring drainage with IR. When I initially evaluated patient she denied any previous episodes of similar pain. Patient stating that her pain is uncontrolled and she is unable to tolerate it. Will admit for management potentially with IR. Discussed with Dr. Ochoa who is agreeable to admission. Pt has been hemodynamically stable while in the ER. Dragon Disclaimer Dragon Disclaimer This electronic medical record was generated, in whole or in part, using a voice recognition dictation system. Departure Departure Impression: Primary Impression: Abdominal fluid collection Additional Impression: Abdominal pain Disposition: ADMITTED INPATIENT Admitting Physician: Other Condition: GUARDED Referrals: NO PCP (PCP) Problem Qualifiers DAWNA DWYER DO Jun 09, 2018 16:15
[2018-06-09] MEDS: MORPHINE SULFATE 4 MG/ML VIAL. IV PRN ×3 (18:06→22:55)
--- NOTE | 2018-06-09 20:00 | PDOC1 ---
History and Physical Date of Admission Date of Admission DATE: 06/09/18 TIME: 19:59 Identification/Chief Complaint Chief Complaint Abdominal Pain Source Source: Patient History of Present Illness History of Present Illness 37 yo f who presents to the ED for evaluation of R upper abdominal pain. She has had increasing pain for the past week, rates it as severe, 9-10/10, sharp and colicky, worse with movement, she has been calling in sick to work due to this. She notes no new medications or sick contacts, no dysuria, no hematuria. Food has not improved this or worsened it. She notes previously last year she had a "fluid bag" removed by IR with improvement in these symptoms. She has had some constipation, no diarrhea On ROS has GERD 2/2 report of hiatal hernia s/p Harinder ~2003 and ventral hernia s/p mesh at [facility], as well as a concern about an abnormal pap smear 4 years ago she failed to follow up on. Noted with anemia, Hb 10, new and AST [address] scan confirms cystic mass similar to prior and 4cm ovarian cyst. Admitted for pain control and evaluation of abdominal fluid collection. Past Medical History Cardiovascular: No pertinent hx Pulmonary: No pertinent hx GI: GERD Hepatobiliary: No pertinent hx Psych: No pertinent hx Musculoskeletal: low back pain Rheumatologic: No pertinent hx Infectious disease: No pertinent hx Renal/: No pertinent hx Endocrine: No pertinent hx Past Surgical History Past Surgical History: Appendectomy, Hernia Repair, Other (Harinder 2003) Family History Family History: No Significant Social History Smoke: No ALCOHOL: none Drugs: None Current Problem List Problem List Problems Medical Problems: (1) Abdominal pain Status: Acute Current Medications Current Medications Current Medications Morphine Sulfate (Morphine Sulfate) 4 mg 1X ONCE IV Last administered on at 14:55; Start 06/09/18 at 13:45; Stop 06/09/18 at 13:46; Status DC Ondansetron HCl (Zofran) 8 mg 1X ONCE IV Last administered on 06/09/18at 14:55 ; Start 06/09/18 at 13:45; Stop 06/09/18 at 13:46; Status DC Iohexol (Omnipaque 300 Mg/ml) 75 ml 1X ONCE IV Last administered on 06/09/18at 14:30; Start 06/09/18 at 14:30; Stop 06/09/18 at 14:31; Status DC Info (CONTRAST GIVEN -- Rx MONITORING) 1 each PRN DAILY PRN MC SEE COMMENTS; Start 06/09/18 at 14:30; Stop 06/11/18 at 14:29 Diphenhydramine HCl (Benadryl) 50 mg 1X ONCE PO Last administered on at 15:33; Start 06/09/18 at 15:15; Stop 06/09/18 at 15:16; Status DC Morphine Sulfate (Morphine Sulfate) 4 mg 1X ONCE IV Last administered on at 15:54; Start 06/09/18 at 15:45; Stop 06/09/18 at 15:46; Status DC Morphine Sulfate (Morphine Sulfate) 4 mg PRN Q2HR PRN IV PAIN Last administered on 06/09/18at 18:06; Start 06/09/18 at 16:30; Stop 06/10/18 at 16:29 Ondansetron HCl (Zofran) 8 mg 1X ONCE IV Last administered on 06/09/18at 17:01 ; Start 06/09/18 at 16:45; Stop 06/09/18 at 16:47; Status DC Active Scripts Active Ambien (Zolpidem Tartrate) 10 Mg Tablet 1 Tab PO QHS [place] 5-325 Tablet (Acetaminophen/Hydrocodone Bitart) 1 Each Tablet 1-2 Tab PO Q4-6HRS Allergies Allergies: Coded Allergies: Penicillins (Verified Allergy, Intermediate, 02/06/17) ibuprofen (Verified Allergy, Intermediate, 02/06/17) latex (Verified Allergy, Intermediate, 02/06/17) acetaminophen (Verified Adverse Reaction, Intermediate, Itching, 10/25/16) HEART RACING, PALPITATIONS, ITCHING butorphanol tartrate (Verified Adverse Reaction, Intermediate, Anxiety, ) felt like she was burning up inside oxycodone (Verified Adverse Reaction, Intermediate, Itching, 10/25/16) HEART RACING, PALPITATIONS, ITCHING ROS General: YES: Fatigue, Appetite; No: Chills, Night Sweats, Malaise, Other PSYCHOLOGICAL ROS: No: Anxiety, Behavioral Disorder, Concentration difficultie , Decreased libido, Depression, Disorientation, Hallucinations, Hostility, Irritablity, Memory difficulties, Mood Swings, Obsessive thoughts, Physical abuse, Sexual abuse, Sleep disturbances, Suicidal ideation, Other Eyes: No Blurry vision, No Decreased vision, No Double vision, No Dry eyes, No Excessive tearing, No Eye Pain, No Itchy Eyes, No Loss of vision, No Photophobia , No Scotomata, No Uses contacts, No Uses glasses, No Other HEENT: No: Heacaches, Visual Changes, Hearing change, Nasal congestion, Nasal discharge, Oral lesions, Sinus pain, Sore Throat, Epistaxis, Sneezing, Snoring, Tinnitus, Vertigo, Vocal changes, Other ALLERGY AND IMMUNOLOGY: No: Hives, Insect Bite Sensitivity, Itchy/Watery Eyes, Nasal Congestion, Post Nasal Drip, Seasonal Allergies, Other Hematological and Lymphatic: No: Bleeding Problems, Blood Clots, Blood Transfusions, Brusing, Night Sweats, Pallor, Swollen Lymph Nodes, Other ENDOCRINE: No: Breast Changes, Galactorrhea, Hair Pattern Changes, Hot Flashes , Malaise/lethargy, Mood Swings, Palpitations, Polydipsia/polyuria, Skin Changes , Temperature Intolerance, Unexpected Weight Changes, Other Breast: No New/Changing Breast Lumps, No Nipple changes, No Nipple discharge, No Other Respiratory: No: Cough, Hemoptysis, Orthopnea, Pleuritic Pain, Shortness of breath, SOB with excertion, Sputum Changes, Stridor, Tachypnea, Wheezing, Other Cardiovascular: No Chest Pain, No Palpitations, No Orthopnea, No Paroxysmal Noc. Dyspnea, No Edema, No Lt Headedness, No Other Gastrointestinal: Yes Nausea, Yes Abdominal Pain, Yes Constipation; No Vomiting, No Diarrhea, No Melena, No Hematochezia, No Other Genitourinary: No Dysuria, No Frequency, No Incontinence, No Hematuria, No Retention, No Discharge, No Urgency, No Pain, No Flank Pain, No Other, No , No , No , No , No , No , No Musculoskeletal: No Gait Disturbance, No Joint Pain, No Joint Stiffness, No Joint Swelling, No Muscle Pain, No Muscular Weakness, No Pain In:, No Swelling In:, No Other Neurological: No Behavorial Changes, No Bowel/Bladder ControlChng, No Confusion , No Dizziness, No Gait Disturbance, No Headaches, No Impaired Coord/balance, No Memory Loss, No Numbness/Tingling, No Seizures, No Speech Problems, No Tremors, No Visual Changes, No Weakness, No Other Skin: No Dry Skin, No Eczema, No Hair Changes, No Lumps, No Mole Changes, No Mottling, No Nail Changes, No Pruritus, No Rash, No Skin Lesion Changes, No Other, No Acne Physical Exam General: Alert, Oriented X3, Cooperative, mild distress HEENT: Atraumatic, PERRLA, EOMI, Mucous membr. moist/pink Lungs: Clear to auscultation, Normal air movement Heart: S1S2, RRR, no murmurs Abdomen: Normal bowel sounds, No hepatosplenomegaly, Other (palpable mass, palpable mess. Diffuse abdominal pain, worst in RUQ) Rectal Exam: not examined PELVIC: Exam declined by patient Extremities: No clubbing, No cyanosis, No edema, Normal pulses, No tenderness/ swelling Skin: No rashes, No breakdown, No significant lesion Neuro: Normal gait, Normal speech, Strength at 5/5 X4 ext, Normal tone, Sensation intact, Cranial nerves 3-12 NL, Reflexes 2+ Psych/Mental Status: Mental status NL, Mood NL Vitals Vitals Vital Signs Date Time Temp Pulse Resp B/P (MAP) Pulse Ox O2 Delivery O2 Flow Rate FiO2 06/09/18 19:30 102 22 133/74 (93) 98 Room Air 06/09/18 13:35 98.4 98.4 Labs Labs Laboratory Tests Test 06/09/18 13:38 06/09/18 13:40 06/09/18 14:45 Urine Collection Type Void Urine Color Yellow Urine Clarity Clear Urine pH 6.0 Urine Specific [place] 1.025 Urine Protein Negative mg/dL (NEG-TRACE) Urine Glucose (UA) Negative mg/dL (NEG) Urine Ketones (Stick) Negative mg/dL (NEG) Urine Blood Negative (NEG) Urine Nitrite Negative (NEG) Urine Bilirubin Negative (NEG) Urine Urobilinogen Dipstick 0.2 mg/dL (0.2 mg/dL) Urine Leukocyte Esterase Negative (NEG) Urine RBC 0 /HPF (0-2) Urine WBC 0 /HPF (0-4) Urine Squamous Epithelial Cells Few /LPF Urine Bacteria 0 /HPF (0-FEW) Urine Mucus Slight /LPF Bedside Urine HCG, Qualitative Hcg negative (Negative) White Blood Count 6.1 x10^3/uL (4.0-11.0) Red Blood Count 3.79 x10^6/uL (3.50-5.40) Hemoglobin 10.0 g/dL (12.0-15.5) Hematocrit 30.2 % (36.0-47.0) Mean Corpuscular Volume 80 fL (79-100) Mean Corpuscular Hemoglobin 27 pg (25-35) Mean Corpuscular Hemoglobin Concent 33 g/dL (31-37) Red Cell Distribution Width 19.8 % (11.5-14.5) Platelet Count 289 x10^3/uL (140-400) Neutrophils (%) (Auto) 36 % (31-73) Lymphocytes (%) (Auto) 55 % (24-48) Monocytes (%) (Auto) 7 % (0-9) Eosinophils (%) (Auto) 1 % (0-3) Basophils (%) (Auto) 1 % (0-3) Neutrophils # (Auto) 2.2 x10^3uL (1.8-7.7) Lymphocytes # (Auto) 3.4 x10^3/uL (1.0-4.8) Monocytes # (Auto) 0.5 x10^3/uL (0.0-1.1) Eosinophils # (Auto) 0.0 x10^3/uL (0.0-0.7) Basophils # (Auto) 0.1 x10^3/uL (0.0-0.2) Sodium Level 140 mmol/L (136-145) Potassium Level 4.2 mmol/L (3.5-5.1) Chloride Level 104 mmol/L (98-107) Carbon Dioxide Level 25 mmol/L (21-32) Anion Gap 11 (6-14) Blood Urea Nitrogen 11 mg/dL (7-20) Creatinine 0.7 mg/dL (0.6-1.0) Estimated GFR (Cockcroft-Gault) 113.9 BUN/Creatinine Ratio 16 (6-20) Glucose Level 83 mg/dL (70-99) Calcium Level 8.8 mg/dL (8.5-10.1) Total Bilirubin 0.2 mg/dL (0.2-1.0) Aspartate Amino Transf (AST/SGOT) 52 U/L (15-37) Alanine Aminotransferase (ALT/SGPT) 129 U/L (14-59) Alkaline Phosphatase 64 U/L (46-116) Total Protein 8.1 g/dL (6.4-8.2) Albumin 4.1 g/dL (3.4-5.0) Albumin/Globulin Ratio 1.0 (1.0-1.7) Lipase 174 U/L (73-393) Laboratory Tests Test 06/09/18 13:38 06/09/18 13:40 06/09/18 14:45 Urine Collection Type Void Urine Color Yellow Urine Clarity Clear Urine pH 6.0 Urine Specific [place] 1.025 Urine Protein Negative mg/dL (NEG-TRACE) Urine Glucose (UA) Negative mg/dL (NEG) Urine Ketones (Stick) Negative mg/dL (NEG) Urine Blood Negative (NEG) Urine Nitrite Negative (NEG) Urine Bilirubin Negative (NEG) Urine Urobilinogen Dipstick 0.2 mg/dL (0.2 mg/dL) Urine Leukocyte Esterase Negative (NEG) Urine RBC 0 /HPF (0-2) Urine WBC 0 /HPF (0-4) Urine Squamous Epithelial Cells Few /LPF Urine Bacteria 0 /HPF (0-FEW) Urine Mucus Slight /LPF Bedside Urine HCG, Qualitative Hcg negative (Negative) White Blood Count 6.1 x10^3/uL (4.0-11.0) Red Blood Count 3.79 x10^6/uL (3.50-5.40) Hemoglobin 10.0 g/dL (12.0-15.5) Hematocrit 30.2 % (36.0-47.0) Mean Corpuscular Volume 80 fL (79-100) Mean Corpuscular Hemoglobin 27 pg (25-35) Mean Corpuscular Hemoglobin Concent 33 g/dL (31-37) Red Cell Distribution Width 19.8 % (11.5-14.5) Platelet Count 289 x10^3/uL (140-400) Neutrophils (%) (Auto) 36 % (31-73) Lymphocytes (%) (Auto) 55 % (24-48) Monocytes (%) (Auto) 7 % (0-9) Eosinophils (%) (Auto) 1 % (0-3) Basophils (%) (Auto) 1 % (0-3) Neutrophils # (Auto) 2.2 x10^3uL (1.8-7.7) Lymphocytes # (Auto) 3.4 x10^3/uL (1.0-4.8) Monocytes # (Auto) 0.5 x10^3/uL (0.0-1.1) Eosinophils # (Auto) 0.0 x10^3/uL (0.0-0.7) Basophils # (Auto) 0.1 x10^3/uL (0.0-0.2) Sodium Level 140 mmol/L (136-145) Potassium Level 4.2 mmol/L (3.5-5.1) Chloride Level 104 mmol/L (98-107) Carbon Dioxide Level 25 mmol/L (21-32) Anion Gap 11 (6-14) Blood Urea Nitrogen 11 mg/dL (7-20) Creatinine 0.7 mg/dL (0.6-1.0) Estimated GFR (Cockcroft-Gault) 113.9 BUN/Creatinine Ratio 16 (6-20) Glucose Level 83 mg/dL (70-99) Calcium Level 8.8 mg/dL (8.5-10.1) Total Bilirubin 0.2 mg/dL (0.2-1.0) Aspartate Amino Transf (AST/SGOT) 52 U/L (15-37) Alanine Aminotransferase (ALT/SGPT) 129 U/L (14-59) Alkaline Phosphatase 64 U/L (46-116) Total Protein 8.1 g/dL (6.4-8.2) Albumin 4.1 g/dL (3.4-5.0) Albumin/Globulin Ratio 1.0 (1.0-1.7) Lipase 174 U/L (73-393) Images Images CT abdomen - This measures roughly 6.3 x 4.2 x 6.4 cm. This thought to be without significant change in volume from previous study. Possibilities are chronic postoperative seroma versus mesenteric or enteric duplication cyst. 2. Right ovarian cyst measuring 4.1 cm. If there is concern for torsion, pelvic ultrasound could be performed. 3. Ventral hernia repair with mesh. No recurrent hernia is identified. VTE Prophylaxis Ordered VTE Prophylaxis Devices: No VTE Pharmacological Prophylaxi: Yes Assessment/Plan Assessment/Plan Intractable abdominal pain - will consult IR for drain of cystic collection 6.3 x 4.2 x 6.4 cm, likely seroma. Pain control. She requests general surgery consultation, states her original surgery was at [facility] for mesh placement and would like it removed. Ovarian cyst - unlikely etiology of abdominal pain. On ROS she states she has a strong family history of cervical cancer and abnormal pap smear 4 years ago she failed to follow up on, will consult issuer. Transaminitis - with her abdominal pain could be related, pattern could be thyroid, autoimmune, medication related, will trend FEN - general diet, npo after midnight PPX - heparin FULL CODE Inpatient for intractable abdominal pain, will likely require 2 midnights of care. TIH MARTINEZ MD Jun 09, 2018 20:00
[2018-06-09] MEDS: traZODone 100 MG TABLET. PO PRN (23:56)
[2018-06-09] MEDS: diphenhydrAMINE HCL 25 MG CAPSULE PO PRN (23:56)
[2018-06-09] MEDS: ONDANSETRON PF 4 MG/2 ML VIAL. IV PRN (23:56)
[2018-06-10 03:00] VITALS: BP 119/89
[2018-06-10] MEDS: MORPHINE SULFATE 4 MG/ML VIAL. IV PRN ×5 (03:38→13:08)
[2018-06-10] MEDS: HYDROcodone/APAP 5/325MG 1 TAB TABLET PO PRN ×4 (04:20→23:57)
[2018-06-10 05:51] LABS: ALBUMIN 3.5 g/dL (3.4-5.0); ALBUMIN/GLOBULIN RATIO 1.1 (1.0-1.7); CALCIUM 8.6 mg/dL (8.5-10.1); CREATININE 0.8 mg/dL (0.6-1.0); GFR 97.7; POTASSIUM 4.2 mmol/L (3.5-5.1); TOTAL BILIRUBIN 0.2 mg/dL (0.2-1.0); TOTAL PROTEIN 6.8 g/dL (6.4-8.2)
[2018-06-10] MEDS: ONDANSETRON PF 4 MG/2 ML VIAL. IV PRN ×3 (06:28→23:01)
--- NOTE | 2018-06-10 07:48 | PDOC ---
Provider Note Provider Note IR NOTE CT abdomen reviewed. Intra-abdominal fluid collection is not readily amenable to repeat drainage due to change in position and overlying structures. Surgical consultation pending. BENJAMIN SEGUNDO MD Jun 10, 2018 07:48
--- NOTE | 2018-06-10 08:07 | PDOC ---
PROGRESS NOTES Chief Complaint Chief Complaint Intractable abdominal pain Abdominal wall cyst Ovarian cyst Transaminitis History of Present Illness History of Present Illness 37 yo f who presents to the ED for evaluation of R upper abdominal pain. She has had increasing pain for the past week, rates it as severe, 9-10/10, sharp and colicky, worse with movement, she has been calling in sick to work due to this. She notes no new medications or sick contacts, no dysuria, no hematuria. Food has not improved this or worsened it. She notes previously last year she had a "fluid bag" removed by IR with improvement in these symptoms. She has had some constipation, no diarrhea On ROS has GERD 2/2 report of hiatal hernia s/p Harinder ~2003 and ventral hernia s/p mesh at [facility], as well as a concern about an abnormal pap smear 4 years ago she failed to follow up on. Noted with anemia, Hb 10, new and AST [address] scan confirms cystic mass similar to prior and 4cm ovarian cyst. Admitted for pain control and evaluation of abdominal fluid collection. Seen by IR, unable to navigate to drain fluid collection Overnight slept ok, states her pain is preventing her from even bending and she now experiences pain in bilateral thighs, states she cannot work her job with [employer] due to this. Some nausea, some vaginal discomfort. No CP, no SOB, has not moved her bowels. Intractable abdominal pain - IR unable to drain cystic collection 6.3 x 4.2 x 6.4 cm, likely seroma. Pain control. She requests general surgery consultation, states her original surgery was at [facility] for mesh placement and would like it removed. Unfortunately, based on her pain complaints this is probably an appropriate decision, I have advised general surgery I agree with her. Ovarian cyst - unlikely etiology of abdominal pain. On ROS she states she has a strong family history of cervical cancer and abnormal pap smear 4 years ago she failed to follow up on, will consult wrapper stitcher. Transaminitis - with her abdominal pain could be related, pattern could be thyroid, autoimmune, medication related, will trend FEN - general diet PPX - heparin FULL CODE Inpatient for intractable abdominal pain, will likely require 2 midnights of care. Vitals Vitals Vital Signs Date Time Temp Pulse Resp B/P (MAP) Pulse Ox O2 Delivery O2 Flow Rate FiO2 06/10/18 06:25 100 Room Air 06/10/18 05:54 16 11/2/18 03:00 97.9 97 119/89 (99) 97.9 Physical Exam General: Alert, Oriented X3, Cooperative, mild distress Lungs: Clear Abdomen: Normal bowel sounds, No hepatosplenomegaly, Other (palpable mass, palpable mess. Diffuse abdominal pain, worst in RUQ) Extremities: No clubbing, No cyanosis, No edema, Normal pulses, No tenderness/ swelling Skin: No rashes, No breakdown, No significant lesion Labs LABS Laboratory Tests Test 06/09/18 13:38 06/09/18 13:40 06/09/18 14:45 06/10/18 04:10 Urine Collection Type Void Urine Color Yellow Urine Clarity Clear Urine pH 6.0 Urine Specific [place] 1.025 Urine Protein Negative mg/dL (NEG-TRACE) Urine Glucose (UA) Negative mg/dL (NEG) Urine Ketones (Stick) Negative mg/dL (NEG) Urine Blood Negative (NEG) Urine Nitrite Negative (NEG) Urine Bilirubin Negative (NEG) Urine Urobilinogen Dipstick 0.2 mg/dL (0.2 mg/dL) Urine Leukocyte Esterase Negative (NEG) Urine RBC 0 /HPF (0-2) Urine WBC 0 /HPF (0-4) Urine Squamous Epithelial Cells Few /LPF Urine Bacteria 0 /HPF (0-FEW) Urine Mucus Slight /LPF Bedside Urine HCG, Qualitative Hcg negative (Negative) White Blood Count 6.1 x10^3/uL (4.0-11.0) Red Blood Count 3.79 x10^6/uL (3.50-5.40) Hemoglobin 10.0 g/dL (12.0-15.5) Hematocrit 30.2 % (36.0-47.0) Mean Corpuscular Volume 80 fL (79-100) Mean Corpuscular Hemoglobin 27 pg (25-35) Mean Corpuscular Hemoglobin Concent 33 g/dL (31-37) Red Cell Distribution Width 19.8 % (11.5-14.5) Platelet Count 289 x10^3/uL (140-400) Neutrophils (%) (Auto) 36 % (31-73) Lymphocytes (%) (Auto) 55 % (24-48) Monocytes (%) (Auto) 7 % (0-9) Eosinophils (%) (Auto) 1 % (0-3) Basophils (%) (Auto) 1 % (0-3) Neutrophils # (Auto) 2.2 x10^3uL (1.8-7.7) Lymphocytes # (Auto) 3.4 x10^3/uL (1.0-4.8) Monocytes # (Auto) 0.5 x10^3/uL (0.0-1.1) Eosinophils # (Auto) 0.0 x10^3/uL (0.0-0.7) Basophils # (Auto) 0.1 x10^3/uL (0.0-0.2) Sodium Level 140 mmol/L (136-145) 142 mmol/L (136-145) Potassium Level 4.2 mmol/L (3.5-5.1) 4.2 mmol/L (3.5-5.1) Chloride Level 104 mmol/L (98-107) 106 mmol/L (98-107) Carbon Dioxide Level 25 mmol/L (21-32) 26 mmol/L (21-32) Anion Gap 11 (6-14) 10 (6-14) Blood Urea Nitrogen 11 mg/dL (7-20) 9 mg/dL (7-20) Creatinine 0.7 mg/dL (0.6-1.0) 0.8 mg/dL (0.6-1.0) Estimated GFR (Cockcroft-Gault) 113.9 97.7 BUN/Creatinine Ratio 16 (6-20) 11 (6-20) Glucose Level 83 mg/dL (70-99) 75 mg/dL (70-99) Calcium Level 8.8 mg/dL (8.5-10.1) 8.6 mg/dL (8.5-10.1) Total Bilirubin 0.2 mg/dL (0.2-1.0) 0.2 mg/dL (0.2-1.0) Aspartate Amino Transf (AST/SGOT) 52 U/L (15-37) 35 U/L (15-37) Alanine Aminotransferase (ALT/SGPT) 129 U/L (14-59) 100 U/L (14-59) Alkaline Phosphatase 64 U/L (46-116) 69 U/L (46-116) Total Protein 8.1 g/dL (6.4-8.2) 6.8 g/dL (6.4-8.2) Albumin 4.1 g/dL (3.4-5.0) 3.5 g/dL (3.4-5.0) Albumin/Globulin Ratio 1.0 (1.0-1.7) 1.1 (1.0-1.7) Lipase 174 U/L (73-393) Iron Level 20 ug/dL (50-170) Total Iron Binding Capacity 416 ug/dL (250-450) Iron Saturation 5 % (15-34) Ferritin 6 ng/mL (8-252) Thyroid Stimulating Hormone (TSH) 6.845 uIU/mL (0.358-3.74) Assessment and Plan Assessmemt and Plan Problems Medical Problems: (1) Abdominal pain Status: Acute Comment Review of Relevant I have reviewed the following items ruth (where applicable) has been applied. Labs Laboratory Tests Test 06/09/18 13:38 06/09/18 13:40 06/09/18 14:45 06/10/18 04:10 Urine Collection Type Void Urine Color Yellow Urine Clarity Clear Urine pH 6.0 Urine Specific [place] 1.025 Urine Protein Negative mg/dL (NEG-TRACE) Urine Glucose (UA) Negative mg/dL (NEG) Urine Ketones (Stick) Negative mg/dL (NEG) Urine Blood Negative (NEG) Urine Nitrite Negative (NEG) Urine Bilirubin Negative (NEG) Urine Urobilinogen Dipstick 0.2 mg/dL (0.2 mg/dL) Urine Leukocyte Esterase Negative (NEG) Urine RBC 0 /HPF (0-2) Urine WBC 0 /HPF (0-4) Urine Squamous Epithelial Cells Few /LPF Urine Bacteria 0 /HPF (0-FEW) Urine Mucus Slight /LPF Bedside Urine HCG, Qualitative Hcg negative (Negative) White Blood Count 6.1 x10^3/uL (4.0-11.0) Red Blood Count 3.79 x10^6/uL (3.50-5.40) Hemoglobin 10.0 g/dL (12.0-15.5) Hematocrit 30.2 % (36.0-47.0) Mean Corpuscular Volume 80 fL (79-100) Mean Corpuscular Hemoglobin 27 pg (25-35) Mean Corpuscular Hemoglobin Concent 33 g/dL (31-37) Red Cell Distribution Width 19.8 % (11.5-14.5) Platelet Count 289 x10^3/uL (140-400) Neutrophils (%) (Auto) 36 % (31-73) Lymphocytes (%) (Auto) 55 % (24-48) Monocytes (%) (Auto) 7 % (0-9) Eosinophils (%) (Auto) 1 % (0-3) Basophils (%) (Auto) 1 % (0-3) Neutrophils # (Auto) 2.2 x10^3uL (1.8-7.7) Lymphocytes # (Auto) 3.4 x10^3/uL (1.0-4.8) Monocytes # (Auto) 0.5 x10^3/uL (0.0-1.1) Eosinophils # (Auto) 0.0 x10^3/uL (0.0-0.7) Basophils # (Auto) 0.1 x10^3/uL (0.0-0.2) Sodium Level 140 mmol/L (136-145) 142 mmol/L (136-145) Potassium Level 4.2 mmol/L (3.5-5.1) 4.2 mmol/L (3.5-5.1) Chloride Level 104 mmol/L (98-107) 106 mmol/L (98-107) Carbon Dioxide Level 25 mmol/L (21-32) 26 mmol/L (21-32) Anion Gap 11 (6-14) 10 (6-14) Blood Urea Nitrogen 11 mg/dL (7-20) 9 mg/dL (7-20) Creatinine 0.7 mg/dL (0.6-1.0) 0.8 mg/dL (0.6-1.0) Estimated GFR (Cockcroft-Gault) 113.9 97.7 BUN/Creatinine Ratio 16 (6-20) 11 (6-20) Glucose Level 83 mg/dL (70-99) 75 mg/dL (70-99) Calcium Level 8.8 mg/dL (8.5-10.1) 8.6 mg/dL (8.5-10.1) Total Bilirubin 0.2 mg/dL (0.2-1.0) 0.2 mg/dL (0.2-1.0) Aspartate Amino Transf (AST/SGOT) 52 U/L (15-37) 35 U/L (15-37) Alanine Aminotransferase (ALT/SGPT) 129 U/L (14-59) 100 U/L (14-59) Alkaline Phosphatase 64 U/L (46-116) 69 U/L (46-116) Total Protein 8.1 g/dL (6.4-8.2) 6.8 g/dL (6.4-8.2) Albumin 4.1 g/dL (3.4-5.0) 3.5 g/dL (3.4-5.0) Albumin/Globulin Ratio 1.0 (1.0-1.7) 1.1 (1.0-1.7) Lipase 174 U/L (73-393) Iron Level 20 ug/dL (50-170) Total Iron Binding Capacity 416 ug/dL (250-450) Iron Saturation 5 % (15-34) Ferritin 6 ng/mL (8-252) Thyroid Stimulating Hormone (TSH) 6.845 uIU/mL (0.358-3.74) Laboratory Tests Test 06/09/18 13:38 06/09/18 13:40 06/09/18 14:45 06/10/18 04:10 Urine Collection Type Void Urine Color Yellow Urine Clarity Clear Urine pH 6.0 Urine Specific [place] 1.025 Urine Protein Negative mg/dL (NEG-TRACE) Urine Glucose (UA) Negative mg/dL (NEG) Urine Ketones (Stick) Negative mg/dL (NEG) Urine Blood Negative (NEG) Urine Nitrite Negative (NEG) Urine Bilirubin Negative (NEG) Urine Urobilinogen Dipstick 0.2 mg/dL (0.2 mg/dL) Urine Leukocyte Esterase Negative (NEG) Urine RBC 0 /HPF (0-2) Urine WBC 0 /HPF (0-4) Urine Squamous Epithelial Cells Few /LPF Urine Bacteria 0 /HPF (0-FEW) Urine Mucus Slight /LPF Bedside Urine HCG, Qualitative Hcg negative (Negative) White Blood Count 6.1 x10^3/uL (4.0-11.0) Red Blood Count 3.79 x10^6/uL (3.50-5.40) Hemoglobin 10.0 g/dL (12.0-15.5) Hematocrit 30.2 % (36.0-47.0) Mean Corpuscular Volume 80 fL (79-100) Mean Corpuscular Hemoglobin 27 pg (25-35) Mean Corpuscular Hemoglobin Concent 33 g/dL (31-37) Red Cell Distribution Width 19.8 % (11.5-14.5) Platelet Count 289 x10^3/uL (140-400) Neutrophils (%) (Auto) 36 % (31-73) Lymphocytes (%) (Auto) 55 % (24-48) Monocytes (%) (Auto) 7 % (0-9) Eosinophils (%) (Auto) 1 % (0-3) Basophils (%) (Auto) 1 % (0-3) Neutrophils # (Auto) 2.2 x10^3uL (1.8-7.7) Lymphocytes # (Auto) 3.4 x10^3/uL (1.0-4.8) Monocytes # (Auto) 0.5 x10^3/uL (0.0-1.1) Eosinophils # (Auto) 0.0 x10^3/uL (0.0-0.7) Basophils # (Auto) 0.1 x10^3/uL (0.0-0.2) Sodium Level 140 mmol/L (136-145) 142 mmol/L (136-145) Potassium Level 4.2 mmol/L (3.5-5.1) 4.2 mmol/L (3.5-5.1) Chloride Level 104 mmol/L (98-107) 106 mmol/L (98-107) Carbon Dioxide Level 25 mmol/L (21-32) 26 mmol/L (21-32) Anion Gap 11 (6-14) 10 (6-14) Blood Urea Nitrogen 11 mg/dL (7-20) 9 mg/dL (7-20) Creatinine 0.7 mg/dL (0.6-1.0) 0.8 mg/dL (0.6-1.0) Estimated GFR (Cockcroft-Gault) 113.9 97.7 BUN/Creatinine Ratio 16 (6-20) 11 (6-20) Glucose Level 83 mg/dL (70-99) 75 mg/dL (70-99) Calcium Level 8.8 mg/dL (8.5-10.1) 8.6 mg/dL (8.5-10.1) Total Bilirubin 0.2 mg/dL (0.2-1.0) 0.2 mg/dL (0.2-1.0) Aspartate Amino Transf (AST/SGOT) 52 U/L (15-37) 35 U/L (15-37) Alanine Aminotransferase (ALT/SGPT) 129 U/L (14-59) 100 U/L (14-59) Alkaline Phosphatase 64 U/L (46-116) 69 U/L (46-116) Total Protein 8.1 g/dL (6.4-8.2) 6.8 g/dL (6.4-8.2) Albumin 4.1 g/dL (3.4-5.0) 3.5 g/dL (3.4-5.0) Albumin/Globulin Ratio 1.0 (1.0-1.7) 1.1 (1.0-1.7) Lipase 174 U/L (73-393) Iron Level 20 ug/dL (50-170) Total Iron Binding Capacity 416 ug/dL (250-450) Iron Saturation 5 % (15-34) Ferritin 6 ng/mL (8-252) Thyroid Stimulating Hormone (TSH) 6.845 uIU/mL (0.358-3.74) Medications Current Medications Morphine Sulfate (Morphine Sulfate) 4 mg 1X ONCE IV Last administered on at 14:55; Start 06/09/18 at 13:45; Stop 06/09/18 at 13:46; Status DC Ondansetron HCl (Zofran) 8 mg 1X ONCE IV Last administered on 06/09/18at 14:55 ; Start 06/09/18 at 13:45; Stop 06/09/18 at 13:46; Status DC Iohexol (Omnipaque 300 Mg/ml) 75 ml 1X ONCE IV Last administered on 06/09/18at 14:30; Start 06/09/18 at 14:30; Stop 06/09/18 at 14:31; Status DC Info (CONTRAST GIVEN -- Rx MONITORING) 1 each PRN DAILY PRN MC SEE COMMENTS; Start 06/09/18 at 14:30; Stop 06/11/18 at 14:29 Diphenhydramine HCl (Benadryl) 50 mg 1X ONCE PO Last administered on at 15:33; Start 06/09/18 at 15:15; Stop 06/09/18 at 15:16; Status DC Morphine Sulfate (Morphine Sulfate) 4 mg 1X ONCE IV Last administered on at 15:54; Start 06/09/18 at 15:45; Stop 06/09/18 at 15:46; Status DC Morphine Sulfate (Morphine Sulfate) 4 mg PRN Q2HR PRN IV PAIN Last administered on 06/10/18at 05:54; Start 06/09/18 at 16:30; Stop 06/10/18 at 16:29 Ondansetron HCl (Zofran) 8 mg 1X ONCE IV Last administered on 06/09/18at 17:01 ; Start 06/09/18 at 16:45; Stop 06/09/18 at 16:47; Status DC Diphenhydramine HCl (Benadryl) 25 mg PRN Q6HRS PRN PO ITCHING Last administered on 06/09/18at 23:56; Start 06/09/18 at 23:15 Ondansetron HCl (Zofran) 4 mg PRN Q6HRS PRN IV NAUSEA/VOMITING Last administered on 06/10/18at 06:28; Start 06/09/18 at 23:15 Trazodone HCl (Desyrel) 100 mg PRN QHS PRN PO INSOMNIA Last administered on 06/09/18at 23:56; Start 06/09/18 at 23:15 Acetaminophen/ Hydrocodone Bitart (Lortab 5/325) 1 tab PRN Q6HRS PRN PO PAIN Last administered on 06/10/18at 04:20; Start 06/10/18 at 00:15 Influenza Virus Vaccine (Afluria Trivalent 4165-9162 Syringe) 0.5 ml ONCE ONCE VAX IM ; Start 06/10/18 at 09:00; Stop 06/10/18 at 09:01 Active Scripts Active Ambien (Zolpidem Tartrate) 10 Mg Tablet 1 Tab PO QHS [place] 5-325 Tablet (Acetaminophen/Hydrocodone Bitart) 1 Each Tablet 1-2 Tab PO Q4-6HRS Vitals/I & O Vital Sign - Last 24 Hours 06/09/18 06/09/18 06/09/18 06/09/18 13:35 14:00 14:55 15:00 Temp 98.4 98.4 Pulse 98 84 86 Resp 24 18 25 15 B/P (MAP) 136/92 (107) 116/76 (89) 121/75 (90) Pulse Ox 100 100 99 98 O2 Delivery Room Air Room Air Room Air Room Air 06/09/18 06/09/18 06/09/18 06/09/18 15:54 16:00 16:30 17:00 Pulse 88 92 92 Resp 24 18 18 34 B/P (MAP) 147/104 (118) 147/90 (109) 130/85 (100) Pulse Ox 100 100 99 99 O2 Delivery Room Air Room Air Room Air Room Air 06/09/18 06/09/18 06/09/18 06/09/18 17:30 18:00 18:06 18:30 Pulse 92 96 98 Resp 21 21 17 32 B/P (MAP) 140/91 (107) 138/87 (104) 128/79 (95) Pulse Ox 99 99 100 100 O2 Delivery Room Air Room Air Room Air Room Air 06/09/18 06/09/18 06/09/18 06/09/18 19:00 19:30 20:00 20:11 Pulse 100 102 106 Resp 28 22 27 B/P (MAP) 128/84 (99) 133/74 (93) 147/64 (91) Pulse Ox 100 98 98 100 O2 Delivery Room Air Room Air Room Air Room Air 06/09/18 06/09/18 06/09/18 06/09/18 20:30 21:00 21:30 22:55 Pulse 100 98 102 Resp 19 B/P (MAP) 113/64 (80) 124/72 (89) 125/78 (94) Pulse Ox 98 99 100 100 O2 Delivery Room Air Room Air Room Air 06/09/18 06/10/18 06/10/18 06/10/18 23:00 03:00 03:38 04:15 Temp 97.9 97.9 Pulse 97 Resp 17 16 16 B/P (MAP) 119/89 (99) Pulse Ox 99 100 O2 Delivery Room Air Room Air Room Air 06/10/18 06/10/18 06/10/18 06/10/18 04:20 05:26 05:54 06:25 Resp 16 16 16 Pulse Ox 100 100 100 O2 Delivery Room Air Room Air Room Air Room Air Intake and Output 06/09/18 06/09/18 06/10/18 15:00 23:00 07:00 Intake Total 490 ml Output Total 4 ml Balance 486 ml THI MARTINEZ MD Jun 10, 2018 08:07
--- NOTE | 2018-06-10 09:33 | PDOC2 ---
DILCIA ANDRADE REGISTERED NURSING PROFESSOR 06/10/18 0932: CONSULT Date of Consult Date of Consult DATE: 06/10/18 TIME: 09:26 Reason for Consult Reason for Consult: fluid collection, mesh removal Referring Physician Referring Physician: Dr Ochoa Identification/Chief Complaint Chief Complaint abdominal pain Source Source: Chart review, Patient History of Present Illness Reason for Visit: harinder, mesh at [facility] 2003. Has had ongoing abdominal pain, cystic seroma- previously drained by IR May 2017, serous fluid, no growth from cultures Has been bothering her again for the last 3 weeks. Reports constipation, difficulty with reflux symptoms, food sticking, bloating Can not work because of the ongoing pain she has been having Past Medical History Cardiovascular: No pertinent hx Pulmonary: No pertinent hx GI: GERD Hepatobiliary: No pertinent hx Psych: No pertinent hx Musculoskeletal: low back pain Rheumatologic: No pertinent hx Infectious disease: No pertinent hx Renal/: No pertinent hx Endocrine: No pertinent hx Past Surgical History Past Surgical History: Appendectomy, Hernia Repair, Other (Harinder 2003) Family History Family History: No Significant Social History <1 pack per day ALCOHOL: none Drugs: None Current Problem List Problem List Problems Medical Problems: (1) Abdominal pain Status: Acute Current Medications Current Medications Current Medications Morphine Sulfate (Morphine Sulfate) 4 mg 1X ONCE IV Last administered on at 14:55; Start 06/09/18 at 13:45; Stop 06/09/18 at 13:46; Status DC Ondansetron HCl (Zofran) 8 mg 1X ONCE IV Last administered on 06/09/18at 14:55 ; Start 06/09/18 at 13:45; Stop 06/09/18 at 13:46; Status DC Iohexol (Omnipaque 300 Mg/ml) 75 ml 1X ONCE IV Last administered on 06/09/18at 14:30; Start 06/09/18 at 14:30; Stop 06/09/18 at 14:31; Status DC Info (CONTRAST GIVEN -- Rx MONITORING) 1 each PRN DAILY PRN MC SEE COMMENTS; Start 06/09/18 at 14:30; Stop 06/11/18 at 14:29 Diphenhydramine HCl (Benadryl) 50 mg 1X ONCE PO Last administered on at 15:33; Start 06/09/18 at 15:15; Stop 06/09/18 at 15:16; Status DC Morphine Sulfate (Morphine Sulfate) 4 mg 1X ONCE IV Last administered on at 15:54; Start 06/09/18 at 15:45; Stop 06/09/18 at 15:46; Status DC Morphine Sulfate (Morphine Sulfate) 4 mg PRN Q2HR PRN IV PAIN Last administered on 06/10/18at 08:15; Start 06/09/18 at 16:30; Stop 06/10/18 at 16:29 Ondansetron HCl (Zofran) 8 mg 1X ONCE IV Last administered on 06/09/18at 17:01 ; Start 06/09/18 at 16:45; Stop 06/09/18 at 16:47; Status DC Diphenhydramine HCl (Benadryl) 25 mg PRN Q6HRS PRN PO ITCHING Last administered on 06/09/18at 23:56; Start 06/09/18 at 23:15 Ondansetron HCl (Zofran) 4 mg PRN Q6HRS PRN IV NAUSEA/VOMITING Last administered on 06/10/18at 06:28; Start 06/09/18 at 23:15 Trazodone HCl (Desyrel) 100 mg PRN QHS PRN PO INSOMNIA Last administered on 06/09/18at 23:56; Start 06/09/18 at 23:15 Acetaminophen/ Hydrocodone Bitart (Lortab 5/325) 1 tab PRN Q6HRS PRN PO PAIN Last administered on 06/10/18at 04:20; Start 06/10/18 at 00:15 Influenza Virus Vaccine (Afluria Trivalent [id number] Syringe) 0.5 ml ONCE ONCE VAX IM ; Start 06/10/18 at 09:00; Stop 06/10/18 at 09:01; Status DC Active Scripts Active Ambien (Zolpidem Tartrate) 10 Mg Tablet 1 Tab PO QHS [place] 5-325 Tablet (Acetaminophen/Hydrocodone Bitart) 1 Each Tablet 1-2 Tab PO Q4-6HRS Allergies Allergies: Coded Allergies: Penicillins (Verified Allergy, Intermediate, 02/06/17) ibuprofen (Verified Allergy, Intermediate, 02/06/17) latex (Verified Allergy, Intermediate, 02/06/17) acetaminophen (Verified Adverse Reaction, Intermediate, Itching, 10/25/16) HEART RACING, PALPITATIONS, ITCHING butorphanol tartrate (Verified Adverse Reaction, Intermediate, Anxiety, ) felt like she was burning up inside oxycodone (Verified Adverse Reaction, Intermediate, Itching, 10/25/16) HEART RACING, PALPITATIONS, ITCHING ROS General: No: Chills, Other (fevers) PSYCHOLOGICAL ROS: No: Anxiety, Depression Eyes: No Blurry vision, No Double vision HEENT: No: Heacaches, Sore Throat Hematological and Lymphatic: No: Bleeding Problems, Blood Clots Respiratory: No: Cough, Shortness of breath Cardiovascular: yes Chest Pain; No Palpitations Gastrointestinal: Yes Nausea, Yes Abdominal Pain Genitourinary: No Dysuria, No Hematuria Neurological: No Confusion, No Numbness/Tingling Skin: No Pruritus, No Rash Physical Exam General: Alert, Oriented X3, Cooperative, No acute distress HEENT: PERRLA, Mucous membr. moist/pink Lungs: Clear to auscultation, Normal air movement Heart: Regular rate, Normal S1, Normal S2, No murmurs Abdomen: Soft, Other (diffusely tender ) Extremities: No clubbing, No cyanosis Skin: No rashes, No breakdown Neuro: Normal gait, Normal speech Psych/Mental Status: Mental status NL, Mood NL MUSCULOSKELETAL: No deformity, No swelling Vitals VITALS Vital Signs Date Time Temp Pulse Resp B/P (MAP) Pulse Ox O2 Delivery O2 Flow Rate FiO2 06/10/18 08:15 100 Room Air 06/10/18 05:54 16 06/10/18 03:00 97.9 97 119/89 (99) 97.9 Labs Labs Laboratory Tests Test 06/09/18 13:38 06/09/18 13:40 06/09/18 14:45 06/10/18 04:10 Urine Collection Type Void Urine Color Yellow Urine Clarity Clear Urine pH 6.0 Urine Specific [place] 1.025 Urine Protein Negative mg/dL (NEG-TRACE) Urine Glucose (UA) Negative mg/dL (NEG) Urine Ketones (Stick) Negative mg/dL (NEG) Urine Blood Negative (NEG) Urine Nitrite Negative (NEG) Urine Bilirubin Negative (NEG) Urine Urobilinogen Dipstick 0.2 mg/dL (0.2 mg/dL) Urine Leukocyte Esterase Negative (NEG) Urine RBC 0 /HPF (0-2) Urine WBC 0 /HPF (0-4) Urine Squamous Epithelial Cells Few /LPF Urine Bacteria 0 /HPF (0-FEW) Urine Mucus Slight /LPF Bedside Urine HCG, Qualitative Hcg negative (Negative) White Blood Count 6.1 x10^3/uL (4.0-11.0) Red Blood Count 3.79 x10^6/uL (3.50-5.40) Hemoglobin 10.0 g/dL (12.0-15.5) Hematocrit 30.2 % (36.0-47.0) Mean Corpuscular Volume 80 fL (79-100) Mean Corpuscular Hemoglobin 27 pg (25-35) Mean Corpuscular Hemoglobin Concent 33 g/dL (31-37) Red Cell Distribution Width 19.8 % (11.5-14.5) Platelet Count 289 x10^3/uL (140-400) Neutrophils (%) (Auto) 36 % (31-73) Lymphocytes (%) (Auto) 55 % (24-48) Monocytes (%) (Auto) 7 % (0-9) Eosinophils (%) (Auto) 1 % (0-3) Basophils (%) (Auto) 1 % (0-3) Neutrophils # (Auto) 2.2 x10^3uL (1.8-7.7) Lymphocytes # (Auto) 3.4 x10^3/uL (1.0-4.8) Monocytes # (Auto) 0.5 x10^3/uL (0.0-1.1) Eosinophils # (Auto) 0.0 x10^3/uL (0.0-0.7) Basophils # (Auto) 0.1 x10^3/uL (0.0-0.2) Sodium Level 140 mmol/L (136-145) 142 mmol/L (136-145) Potassium Level 4.2 mmol/L (3.5-5.1) 4.2 mmol/L (3.5-5.1) Chloride Level 104 mmol/L (98-107) 106 mmol/L (98-107) Carbon Dioxide Level 25 mmol/L (21-32) 26 mmol/L (21-32) Anion Gap 11 (6-14) 10 (6-14) Blood Urea Nitrogen 11 mg/dL (7-20) 9 mg/dL (7-20) Creatinine 0.7 mg/dL (0.6-1.0) 0.8 mg/dL (0.6-1.0) Estimated GFR (Cockcroft-Gault) 113.9 97.7 BUN/Creatinine Ratio 16 (6-20) 11 (6-20) Glucose Level 83 mg/dL (70-99) 75 mg/dL (70-99) Calcium Level 8.8 mg/dL (8.5-10.1) 8.6 mg/dL (8.5-10.1) Total Bilirubin 0.2 mg/dL (0.2-1.0) 0.2 mg/dL (0.2-1.0) Aspartate Amino Transf (AST/SGOT) 52 U/L (15-37) 35 U/L (15-37) Alanine Aminotransferase (ALT/SGPT) 129 U/L (14-59) 100 U/L (14-59) Alkaline Phosphatase 64 U/L (46-116) 69 U/L (46-116) Total Protein 8.1 g/dL (6.4-8.2) 6.8 g/dL (6.4-8.2) Albumin 4.1 g/dL (3.4-5.0) 3.5 g/dL (3.4-5.0) Albumin/Globulin Ratio 1.0 (1.0-1.7) 1.1 (1.0-1.7) Lipase 174 U/L (73-393) Iron Level 20 ug/dL (50-170) Total Iron Binding Capacity 416 ug/dL (250-450) Iron Saturation 5 % (15-34) Ferritin 6 ng/mL (8-252) Thyroid Stimulating Hormone (TSH) 6.845 uIU/mL (0.358-3.74) Laboratory Tests Test 06/09/18 13:38 06/09/18 13:40 06/09/18 14:45 06/10/18 04:10 Urine Collection Type Void Urine Color Yellow Urine Clarity Clear Urine pH 6.0 Urine Specific [place] 1.025 Urine Protein Negative mg/dL (NEG-TRACE) Urine Glucose (UA) Negative mg/dL (NEG) Urine Ketones (Stick) Negative mg/dL (NEG) Urine Blood Negative (NEG) Urine Nitrite Negative (NEG) Urine Bilirubin Negative (NEG) Urine Urobilinogen Dipstick 0.2 mg/dL (0.2 mg/dL) Urine Leukocyte Esterase Negative (NEG) Urine RBC 0 /HPF (0-2) Urine WBC 0 /HPF (0-4) Urine Squamous Epithelial Cells Few /LPF Urine Bacteria 0 /HPF (0-FEW) Urine Mucus Slight /LPF Bedside Urine HCG, Qualitative Hcg negative (Negative) White Blood Count 6.1 x10^3/uL (4.0-11.0) Red Blood Count 3.79 x10^6/uL (3.50-5.40) Hemoglobin 10.0 g/dL (12.0-15.5) Hematocrit 30.2 % (36.0-47.0) Mean Corpuscular Volume 80 fL (79-100) Mean Corpuscular Hemoglobin 27 pg (25-35) Mean Corpuscular Hemoglobin Concent 33 g/dL (31-37) Red Cell Distribution Width 19.8 % (11.5-14.5) Platelet Count 289 x10^3/uL (140-400) Neutrophils (%) (Auto) 36 % (31-73) Lymphocytes (%) (Auto) 55 % (24-48) Monocytes (%) (Auto) 7 % (0-9) Eosinophils (%) (Auto) 1 % (0-3) Basophils (%) (Auto) 1 % (0-3) Neutrophils # (Auto) 2.2 x10^3uL (1.8-7.7) Lymphocytes # (Auto) 3.4 x10^3/uL (1.0-4.8) Monocytes # (Auto) 0.5 x10^3/uL (0.0-1.1) Eosinophils # (Auto) 0.0 x10^3/uL (0.0-0.7) Basophils # (Auto) 0.1 x10^3/uL (0.0-0.2) Sodium Level 140 mmol/L (136-145) 142 mmol/L (136-145) Potassium Level 4.2 mmol/L (3.5-5.1) 4.2 mmol/L (3.5-5.1) Chloride Level 104 mmol/L (98-107) 106 mmol/L (98-107) Carbon Dioxide Level 25 mmol/L (21-32) 26 mmol/L (21-32) Anion Gap 11 (6-14) 10 (6-14) Blood Urea Nitrogen 11 mg/dL (7-20) 9 mg/dL (7-20) Creatinine 0.7 mg/dL (0.6-1.0) 0.8 mg/dL (0.6-1.0) Estimated GFR (Cockcroft-Gault) 113.9 97.7 BUN/Creatinine Ratio 16 (6-20) 11 (6-20) Glucose Level 83 mg/dL (70-99) 75 mg/dL (70-99) Calcium Level 8.8 mg/dL (8.5-10.1) 8.6 mg/dL (8.5-10.1) Total Bilirubin 0.2 mg/dL (0.2-1.0) 0.2 mg/dL (0.2-1.0) Aspartate Amino Transf (AST/SGOT) 52 U/L (15-37) 35 U/L (15-37) Alanine Aminotransferase (ALT/SGPT) 129 U/L (14-59) 100 U/L (14-59) Alkaline Phosphatase 64 U/L (46-116) 69 U/L (46-116) Total Protein 8.1 g/dL (6.4-8.2) 6.8 g/dL (6.4-8.2) Albumin 4.1 g/dL (3.4-5.0) 3.5 g/dL (3.4-5.0) Albumin/Globulin Ratio 1.0 (1.0-1.7) 1.1 (1.0-1.7) Lipase 174 U/L (73-393) Iron Level 20 ug/dL (50-170) Total Iron Binding Capacity 416 ug/dL (250-450) Iron Saturation 5 % (15-34) Ferritin 6 ng/mL (8-252) Thyroid Stimulating Hormone (TSH) 6.845 uIU/mL (0.358-3.74) Assessment/Plan Assessment/Plan Hx of harinder fundoplication, mesh--seroma persisting will review with dr jorgensen fluid collection has previously not shown any signs of infection IR noted not amendable to drainage now MELIZA JORGENSEN MD 06/10/18 8510: CONSULT Assessment/Plan Assessment/Plan Pt seen and examined. agree with Katey Andrade's note Pt with c/o abd pain d/w Dr. Gabriela fuller soft, TTP periumbilical plan mesh removal and exploration, probably electively Thanks for consult! DILCIA ANDRADE APRN Jun 10, 2018 09:32 MELIZA JORGENSEN MD Jun 10, 2018 14:59
[2018-06-10] MEDS: diphenhydrAMINE HCL 25 MG CAPSULE PO PRN ×2 (10:36→20:30)
--- NOTE | 2018-06-10 12:57 | PDOC2 ---
CONSULT Date of Consult Date of Consult DATE: 06/10/18 TIME: 12:52 Reason for Consult Reason for Consult: ovarian cyst Referring Physician Referring Physician: Dr. Gutierrez Identification/Chief Complaint Chief Complaint abd pain Source Source: Chart review, Patient History of Present Illness Reason for Visit: 37 y/o presented with c/o abd pain. CT scan demonstrated seroma and ROV cyst of 5 cm size. IR unable to drain seroma due to migration. She had abd mesh placed for hernia repair at a few years ago. Will obtain pelvic sono to better detail ROV cyst. Past Medical History Cardiovascular: No pertinent hx Pulmonary: No pertinent hx GI: GERD Hepatobiliary: No pertinent hx Psych: No pertinent hx Musculoskeletal: low back pain Rheumatologic: No pertinent hx Infectious disease: No pertinent hx Renal/: No pertinent hx Endocrine: No pertinent hx Past Surgical History Past Surgical History: Appendectomy, Hernia Repair, Other (Harinder 2003) Family History Family History: No Significant Social History <1 pack per day ALCOHOL: none Drugs: None Current Problem List Problem List Problems Medical Problems: (1) Abdominal pain Status: Acute Current Medications Current Medications Current Medications Morphine Sulfate (Morphine Sulfate) 4 mg 1X ONCE IV Last administered on at 14:55; Start 06/09/18 at 13:45; Stop 06/09/18 at 13:46; Status DC Ondansetron HCl (Zofran) 8 mg 1X ONCE IV Last administered on 06/09/18at 14:55 ; Start 06/09/18 at 13:45; Stop 06/09/18 at 13:46; Status DC Iohexol (Omnipaque 300 Mg/ml) 75 ml 1X ONCE IV Last administered on 06/09/18at 14:30; Start 06/09/18 at 14:30; Stop 06/09/18 at 14:31; Status DC Info (CONTRAST GIVEN -- Rx MONITORING) 1 each PRN DAILY PRN MC SEE COMMENTS; Start 06/09/18 at 14:30; Stop 06/11/18 at 14:29 Diphenhydramine HCl (Benadryl) 50 mg 1X ONCE PO Last administered on at 15:33; Start 06/09/18 at 15:15; Stop 06/09/18 at 15:16; Status DC Morphine Sulfate (Morphine Sulfate) 4 mg 1X ONCE IV Last administered on at 15:54; Start 06/09/18 at 15:45; Stop 06/09/18 at 15:46; Status DC Morphine Sulfate (Morphine Sulfate) 4 mg PRN Q2HR PRN IV PAIN Last administered on 06/10/18at 10:34; Start 06/09/18 at 16:30; Stop 06/10/18 at 16:29 Ondansetron HCl (Zofran) 8 mg 1X ONCE IV Last administered on 06/09/18at 17:01 ; Start 06/09/18 at 16:45; Stop 06/09/18 at 16:47; Status DC Diphenhydramine HCl (Benadryl) 25 mg PRN Q6HRS PRN PO ITCHING Last administered on 06/10/18at 10:36; Start 06/09/18 at 23:15 Ondansetron HCl (Zofran) 4 mg PRN Q6HRS PRN IV NAUSEA/VOMITING Last administered on 06/10/18 06:28; Start 06/09/18 at 23:15 Trazodone HCl (Desyrel) 100 mg PRN QHS PRN PO INSOMNIA Last administered on 06/09/18at 23:56; Start 06/09/18 at 23:15 Acetaminophen/ Hydrocodone Bitart (Lortab 5/325) 1 tab PRN Q6HRS PRN PO PAIN Last administered on 06/10/18at 11:48; Start 06/10/18 at 00:15 Influenza Virus Vaccine (Afluria Trivalent [id number] Syringe) 0.5 ml ONCE ONCE VAX IM Last administered on 06/10/18at 10:36; Start 06/10/18 at 09:00; Stop 06/10/18 at 09:01; Status DC Active Scripts Active Ambien (Zolpidem Tartrate) 10 Mg Tablet 1 Tab PO QHS [place] 5-325 Tablet (Acetaminophen/Hydrocodone Bitart) 1 Each Tablet 1-2 Tab PO Q4-6HRS Allergies Allergies: Coded Allergies: Penicillins (Verified Allergy, Intermediate, 02/06/17) ibuprofen (Verified Allergy, Intermediate, 02/06/17) latex (Verified Allergy, Intermediate, 02/06/17) acetaminophen (Verified Adverse Reaction, Intermediate, Itching, 10/25/16) HEART RACING, PALPITATIONS, ITCHING butorphanol tartrate (Verified Adverse Reaction, Intermediate, Anxiety, ) felt like she was burning up inside oxycodone (Verified Adverse Reaction, Intermediate, Itching, 10/25/16) HEART RACING, PALPITATIONS, ITCHING ROS General: YES: Malaise, Appetite; No: Chills, Night Sweats, Fatigue, Other PSYCHOLOGICAL ROS: YES: Anxiety; No: Behavioral Disorder, Concentration difficultie, Decreased libido, Depression, Disorientation, Hallucinations, Hostility, Irritablity, Memory difficulties, Mood Swings, Obsessive thoughts, Physical abuse, Sexual abuse, Sleep disturbances, Suicidal ideation, Other Eyes: No Blurry vision, No Decreased vision, No Double vision, No Dry eyes, No Excessive tearing, No Eye Pain, No Itchy Eyes, No Loss of vision, No Photophobia , No Scotomata, No Uses contacts, No Uses glasses, No Other HEENT: No: Heacaches, Visual Changes, Hearing change, Nasal congestion, Nasal discharge, Oral lesions, Sinus pain, Sore Throat, Epistaxis, Sneezing, Snoring, Tinnitus, Vertigo, Vocal changes, Other ALLERGY AND IMMUNOLOGY: No: Hives, Insect Bite Sensitivity, Itchy/Watery Eyes, Nasal Congestion, Post Nasal Drip, Seasonal Allergies, Other Hematological and Lymphatic: No: Bleeding Problems, Blood Clots, Blood Transfusions, Brusing, Night Sweats, Pallor, Swollen Lymph Nodes, Other ENDOCRINE: No: Breast Changes, Galactorrhea, Hair Pattern Changes, Hot Flashes , Malaise/lethargy, Mood Swings, Palpitations, Polydipsia/polyuria, Skin Changes , Temperature Intolerance, Unexpected Weight Changes, Other Breast: No New/Changing Breast Lumps, No Nipple changes, No Nipple discharge, No Other Respiratory: No: Cough, Hemoptysis, Orthopnea, Pleuritic Pain, Shortness of breath, SOB with excertion, Sputum Changes, Stridor, Tachypnea, Wheezing, Other Cardiovascular: No Chest Pain, No Palpitations, No Orthopnea, No Paroxysmal Noc. Dyspnea, No Edema, No Lt Headedness, No Other Gastrointestinal: Yes Abdominal Pain; No Nausea, No Vomiting, No Diarrhea, No Constipation, No Melena, No Hematochezia, No Other Skin: No Dry Skin, No Eczema, No Hair Changes, No Lumps, No Mole Changes, No Mottling, No Nail Changes, No Pruritus, No Rash, No Skin Lesion Changes, No Other, No Acne Physical Exam General: Alert, Oriented X3, Cooperative HEENT: Atraumatic Lungs: Clear to auscultation Heart: Regular rate Abdomen: Normal bowel sounds, Soft, Other (mild tenderness) Psych/Mental Status: Mental status NL Vitals VITALS Vital Signs Date Time Temp Pulse Resp B/P (MAP) Pulse Ox O2 Delivery O2 Flow Rate FiO2 06/10/18 11:48 100 Room Air 06/10/18 05:54 16 06/10/18 03:00 97.9 97 119/89 (99) 97.9 Labs Labs Laboratory Tests Test 06/09/18 13:38 06/09/18 13:40 06/09/18 14:45 06/10/18 04:10 Urine Collection Type Void Urine Color Yellow Urine Clarity Clear Urine pH 6.0 Urine Specific [place] 1.025 Urine Protein Negative mg/dL (NEG-TRACE) Urine Glucose (UA) Negative mg/dL (NEG) Urine Ketones (Stick) Negative mg/dL (NEG) Urine Blood Negative (NEG) Urine Nitrite Negative (NEG) Urine Bilirubin Negative (NEG) Urine Urobilinogen Dipstick 0.2 mg/dL (0.2 mg/dL) Urine Leukocyte Esterase Negative (NEG) Urine RBC 0 /HPF (0-2) Urine WBC 0 /HPF (0-4) Urine Squamous Epithelial Cells Few /LPF Urine Bacteria 0 /HPF (0-FEW) Urine Mucus Slight /LPF Bedside Urine HCG, Qualitative Hcg negative (Negative) White Blood Count 6.1 x10^3/uL (4.0-11.0) Red Blood Count 3.79 x10^6/uL (3.50-5.40) Hemoglobin 10.0 g/dL (12.0-15.5) Hematocrit 30.2 % (36.0-47.0) Mean Corpuscular Volume 80 fL (79-100) Mean Corpuscular Hemoglobin 27 pg (25-35) Mean Corpuscular Hemoglobin Concent 33 g/dL (31-37) Red Cell Distribution Width 19.8 % (11.5-14.5) Platelet Count 289 x10^3/uL (140-400) Neutrophils (%) (Auto) 36 % (31-73) Lymphocytes (%) (Auto) 55 % (24-48) Monocytes (%) (Auto) 7 % (0-9) Eosinophils (%) (Auto) 1 % (0-3) Basophils (%) (Auto) 1 % (0-3) Neutrophils # (Auto) 2.2 x10^3uL (1.8-7.7) Lymphocytes # (Auto) 3.4 x10^3/uL (1.0-4.8) Monocytes # (Auto) 0.5 x10^3/uL (0.0-1.1) Eosinophils # (Auto) 0.0 x10^3/uL (0.0-0.7) Basophils # (Auto) 0.1 x10^3/uL (0.0-0.2) Sodium Level 140 mmol/L (136-145) 142 mmol/L (136-145) Potassium Level 4.2 mmol/L (3.5-5.1) 4.2 mmol/L (3.5-5.1) Chloride Level 104 mmol/L (98-107) 106 mmol/L (98-107) Carbon Dioxide Level 25 mmol/L (21-32) 26 mmol/L (21-32) Anion Gap 11 (6-14) 10 (6-14) Blood Urea Nitrogen 11 mg/dL (7-20) 9 mg/dL (7-20) Creatinine 0.7 mg/dL (0.6-1.0) 0.8 mg/dL (0.6-1.0) Estimated GFR (Cockcroft-Gault) 113.9 97.7 BUN/Creatinine Ratio 16 (6-20) 11 (6-20) Glucose Level 83 mg/dL (70-99) 75 mg/dL (70-99) Calcium Level 8.8 mg/dL (8.5-10.1) 8.6 mg/dL (8.5-10.1) Total Bilirubin 0.2 mg/dL (0.2-1.0) 0.2 mg/dL (0.2-1.0) Aspartate Amino Transf (AST/SGOT) 52 U/L (15-37) 35 U/L (15-37) Alanine Aminotransferase (ALT/SGPT) 129 U/L (14-59) 100 U/L (14-59) Alkaline Phosphatase 64 U/L (46-116) 69 U/L (46-116) Total Protein 8.1 g/dL (6.4-8.2) 6.8 g/dL (6.4-8.2) Albumin 4.1 g/dL (3.4-5.0) 3.5 g/dL (3.4-5.0) Albumin/Globulin Ratio 1.0 (1.0-1.7) 1.1 (1.0-1.7) Lipase 174 U/L (73-393) Iron Level 20 ug/dL (50-170) Total Iron Binding Capacity 416 ug/dL (250-450) Iron Saturation 5 % (15-34) Ferritin 6 ng/mL (8-252) Thyroid Stimulating Hormone (TSH) 6.845 uIU/mL (0.358-3.74) Laboratory Tests Test 06/09/18 13:38 06/09/18 13:40 06/09/18 14:45 06/10/18 04:10 Urine Collection Type Void Urine Color Yellow Urine Clarity Clear Urine pH 6.0 Urine Specific [place] 1.025 Urine Protein Negative mg/dL (NEG-TRACE) Urine Glucose (UA) Negative mg/dL (NEG) Urine Ketones (Stick) Negative mg/dL (NEG) Urine Blood Negative (NEG) Urine Nitrite Negative (NEG) Urine Bilirubin Negative (NEG) Urine Urobilinogen Dipstick 0.2 mg/dL (0.2 mg/dL) Urine Leukocyte Esterase Negative (NEG) Urine RBC 0 /HPF (0-2) Urine WBC 0 /HPF (0-4) Urine Squamous Epithelial Cells Few /LPF Urine Bacteria 0 /HPF (0-FEW) Urine Mucus Slight /LPF Bedside Urine HCG, Qualitative Hcg negative (Negative) White Blood Count 6.1 x10^3/uL (4.0-11.0) Red Blood Count 3.79 x10^6/uL (3.50-5.40) Hemoglobin 10.0 g/dL (12.0-15.5) Hematocrit 30.2 % (36.0-47.0) Mean Corpuscular Volume 80 fL (79-100) Mean Corpuscular Hemoglobin 27 pg (25-35) Mean Corpuscular Hemoglobin Concent 33 g/dL (31-37) Red Cell Distribution Width 19.8 % (11.5-14.5) Platelet Count 289 x10^3/uL (140-400) Neutrophils (%) (Auto) 36 % (31-73) Lymphocytes (%) (Auto) 55 % (24-48) Monocytes (%) (Auto) 7 % (0-9) Eosinophils (%) (Auto) 1 % (0-3) Basophils (%) (Auto) 1 % (0-3) Neutrophils # (Auto) 2.2 x10^3uL (1.8-7.7) Lymphocytes # (Auto) 3.4 x10^3/uL (1.0-4.8) Monocytes # (Auto) 0.5 x10^3/uL (0.0-1.1) Eosinophils # (Auto) 0.0 x10^3/uL (0.0-0.7) Basophils # (Auto) 0.1 x10^3/uL (0.0-0.2) Sodium Level 140 mmol/L (136-145) 142 mmol/L (136-145) Potassium Level 4.2 mmol/L (3.5-5.1) 4.2 mmol/L (3.5-5.1) Chloride Level 104 mmol/L (98-107) 106 mmol/L (98-107) Carbon Dioxide Level 25 mmol/L (21-32) 26 mmol/L (21-32) Anion Gap 11 (6-14) 10 (6-14) Blood Urea Nitrogen 11 mg/dL (7-20) 9 mg/dL (7-20) Creatinine 0.7 mg/dL (0.6-1.0) 0.8 mg/dL (0.6-1.0) Estimated GFR (Cockcroft-Gault) 113.9 97.7 BUN/Creatinine Ratio 16 (6-20) 11 (6-20) Glucose Level 83 mg/dL (70-99) 75 mg/dL (70-99) Calcium Level 8.8 mg/dL (8.5-10.1) 8.6 mg/dL (8.5-10.1) Total Bilirubin 0.2 mg/dL (0.2-1.0) 0.2 mg/dL (0.2-1.0) Aspartate Amino Transf (AST/SGOT) 52 U/L (15-37) 35 U/L (15-37) Alanine Aminotransferase (ALT/SGPT) 129 U/L (14-59) 100 U/L (14-59) Alkaline Phosphatase 64 U/L (46-116) 69 U/L (46-116) Total Protein 8.1 g/dL (6.4-8.2) 6.8 g/dL (6.4-8.2) Albumin 4.1 g/dL (3.4-5.0) 3.5 g/dL (3.4-5.0) Albumin/Globulin Ratio 1.0 (1.0-1.7) 1.1 (1.0-1.7) Lipase 174 U/L (73-393) Iron Level 20 ug/dL (50-170) Total Iron Binding Capacity 416 ug/dL (250-450) Iron Saturation 5 % (15-34) Ferritin 6 ng/mL (8-252) Thyroid Stimulating Hormone (TSH) 6.845 uIU/mL (0.358-3.74) Assessment/Plan Assessment/Plan A: ROV cyst Seroma and abd pain likely from abd mesh P: Obtain pelvic sono. Will continue to follow. Thank you for consult. MICHAEL HARMON Jr, MD Jun 10, 2018 12:57
[2018-06-10] MEDS ORDERED: HYDROmorphone 2 MG/ML VIAL IV PRN (13:30)
--- NOTE | 2018-06-10 16:19 | RAD ---
Pelvic ultrasound, 06/10/2018: HISTORY: Right ovarian cyst Transabdominal and transvaginal scans were obtained. The uterus measures 9.8 x 5.7 x 7.7 cm. The myometrium is heterogeneous. There is mild thickening of the central uterine echo complex in the fundal region where it measures approximately 12-13 mm in AP dimension. No discrete uterine mass is seen. There is a 4.8 x 3.3 x 3.7 cm mass in the right ovary. It contains fluid components as well as low level and medium level echogenic components. Correlation with the current CT study suggests that this is a complicated cyst. No fatty components were seen on the CT study to suggest a dermoid cyst. There is color flow in the ovary but not centrally within this ovarian mass. The left ovary is of normal size. It contains tiny follicular cysts. There is blood flow in the left ovary. The adnexal regions are otherwise unremarkable. No free fluid is evident in the pelvis. IMPRESSION: 1. Complicated right ovarian cyst which may represent a hemorrhagic cyst. Sonographic follow-up is suggested to exclude a neoplastic etiology. 2. Mild thickening of the central uterine echo complex superiorly. This may be physiologic. An endometrial polyp cannot be excluded. Again, sonographic follow-up is suggested. Electronically signed by: Sukhdev Manriquez MD (06/10/2018 4:16 PM) [facility]
[2018-06-10 19:00] VITALS: BP 123/83
[2018-06-10] MEDS: traZODone 100 MG TABLET. PO PRN (20:30)
[2018-06-10 23:00] VITALS: BP 97/47
[2018-06-11] MEDS: MORPHINE SULFATE 4 MG/ML VIAL. IV PRN ×9 (00:48→21:34)
[2018-06-11 03:00] VITALS: BP 116/87
[2018-06-11] MEDS: diphenhydrAMINE HCL 25 MG CAPSULE PO PRN ×3 (03:11→17:30)
[2018-06-11] MEDS: HYDROcodone/APAP 5/325MG 1 TAB TABLET PO PRN ×3 (06:21→20:14)
[2018-06-11 07:00] VITALS: BP 102/55
--- NOTE | 2018-06-11 08:41 | PDOC ---
PROGRESS NOTES Chief Complaint Chief Complaint Intractable abdominal pain Abdominal wall cyst Ovarian cyst Transaminitis History of Present Illness History of Present Illness 37 yo f who presents to the ED for evaluation of R upper abdominal pain. She has had increasing pain for the past week, rates it as severe, 9-10/10, sharp and colicky, worse with movement, she has been calling in sick to work due to this. She notes no new medications or sick contacts, no dysuria, no hematuria. Food has not improved this or worsened it. She notes previously last year she had a "fluid bag" removed by IR with improvement in these symptoms. She has had some constipation, no diarrhea On ROS has GERD 2/2 report of hiatal hernia s/p Harinder ~2003 and ventral hernia s/p mesh at [facility], as well as a concern about an abnormal pap smear 4 years ago she failed to follow up on. Noted with anemia, Hb 10, new and AST [address] scan confirms cystic mass similar to prior and 4cm ovarian cyst. Admitted for pain control and evaluation of abdominal fluid collection. Seen by IR, unable to navigate to drain fluid collection Overnight slept ok, states her pain is preventing her from even bending and she now experiences pain in bilateral thighs, states she cannot work her job with [employer] due to this. Some nausea, some vaginal discomfort. No CP, no SOB, has not moved her bowels. She is insistent this only occurs every 1.5 years, would like the mesh removed. I have reassured her this may not solve her pain problems. A/P: Intractable abdominal pain - IR unable to drain cystic collection 6.3 x 4.2 x 6.4 cm, likely seroma. Pain control. She requests general surgery consultation, states her original surgery was at [facility] for mesh placement and would like it removed. Unfortunately, based on her pain complaints this is probably an appropriate decision, I have advised general surgery I agree with her. Ovarian cyst - unlikely etiology of abdominal pain. On ROS she states she has a strong family history of cervical cancer and abnormal pap smear 4 years ago she failed to follow up on, will consult obstetrics gynecology physician. Transaminitis - with her abdominal pain could be related, pattern could be thyroid, autoimmune, medication related, will trend FEN - general diet PPX - heparin FULL CODE Inpatient for intractable abdominal pain, will likely require 2 midnights of care. Vitals Vitals Vital Signs Date Time Temp Pulse Resp B/P (MAP) Pulse Ox O2 Delivery O2 Flow Rate FiO2 06/11/18 07:49 Room Air 06/11/18 06:21 98 06/11/18 06:19 16 06/11/18 03:00 98.8 78 116/87 (97) 98.8 Physical Exam General: Alert, Oriented X3, Cooperative Heart: Regular rate Lungs: Clear Abdomen: Normal bowel sounds, Soft, Other (mild tenderness) Extremities: No clubbing, No cyanosis Skin: No rashes, No breakdown Assessment and Plan Assessmemt and Plan Problems Medical Problems: (1) Abdominal pain Status: Acute Comment Review of Relevant I have reviewed the following items ruth (where applicable) has been applied. Labs Laboratory Tests Test 06/09/18 13:38 06/09/18 13:40 06/09/18 14:45 06/10/18 04:10 Urine Collection Type Void Urine Color Yellow Urine Clarity Clear Urine pH 6.0 Urine Specific [place] 1.025 Urine Protein Negative mg/dL (NEG-TRACE) Urine Glucose (UA) Negative mg/dL (NEG) Urine Ketones (Stick) Negative mg/dL (NEG) Urine Blood Negative (NEG) Urine Nitrite Negative (NEG) Urine Bilirubin Negative (NEG) Urine Urobilinogen Dipstick 0.2 mg/dL (0.2 mg/dL) Urine Leukocyte Esterase Negative (NEG) Urine RBC 0 /HPF (0-2) Urine WBC 0 /HPF (0-4) Urine Squamous Epithelial Cells Few /LPF Urine Bacteria 0 /HPF (0-FEW) Urine Mucus Slight /LPF Bedside Urine HCG, Qualitative Hcg negative (Negative) White Blood Count 6.1 x10^3/uL (4.0-11.0) Red Blood Count 3.79 x10^6/uL (3.50-5.40) Hemoglobin 10.0 g/dL (12.0-15.5) Hematocrit 30.2 % (36.0-47.0) Mean Corpuscular Volume 80 fL (79-100) Mean Corpuscular Hemoglobin 27 pg (25-35) Mean Corpuscular Hemoglobin Concent 33 g/dL (31-37) Red Cell Distribution Width 19.8 % (11.5-14.5) Platelet Count 289 x10^3/uL (140-400) Neutrophils (%) (Auto) 36 % (31-73) Lymphocytes (%) (Auto) 55 % (24-48) Monocytes (%) (Auto) 7 % (0-9) Eosinophils (%) (Auto) 1 % (0-3) Basophils (%) (Auto) 1 % (0-3) Neutrophils # (Auto) 2.2 x10^3uL (1.8-7.7) Lymphocytes # (Auto) 3.4 x10^3/uL (1.0-4.8) Monocytes # (Auto) 0.5 x10^3/uL (0.0-1.1) Eosinophils # (Auto) 0.0 x10^3/uL (0.0-0.7) Basophils # (Auto) 0.1 x10^3/uL (0.0-0.2) Sodium Level 140 mmol/L (136-145) 142 mmol/L (136-145) Potassium Level 4.2 mmol/L (3.5-5.1) 4.2 mmol/L (3.5-5.1) Chloride Level 104 mmol/L (98-107) 106 mmol/L (98-107) Carbon Dioxide Level 25 mmol/L (21-32) 26 mmol/L (21-32) Anion Gap 11 (6-14) 10 (6-14) Blood Urea Nitrogen 11 mg/dL (7-20) 9 mg/dL (7-20) Creatinine 0.7 mg/dL (0.6-1.0) 0.8 mg/dL (0.6-1.0) Estimated GFR (Cockcroft-Gault) 113.9 97.7 BUN/Creatinine Ratio 16 (6-20) 11 (6-20) Glucose Level 83 mg/dL (70-99) 75 mg/dL (70-99) Calcium Level 8.8 mg/dL (8.5-10.1) 8.6 mg/dL (8.5-10.1) Total Bilirubin 0.2 mg/dL (0.2-1.0) 0.2 mg/dL (0.2-1.0) Aspartate Amino Transf (AST/SGOT) 52 U/L (15-37) 35 U/L (15-37) Alanine Aminotransferase (ALT/SGPT) 129 U/L (14-59) 100 U/L (14-59) Alkaline Phosphatase 64 U/L (46-116) 69 U/L (46-116) Total Protein 8.1 g/dL (6.4-8.2) 6.8 g/dL (6.4-8.2) Albumin 4.1 g/dL (3.4-5.0) 3.5 g/dL (3.4-5.0) Albumin/Globulin Ratio 1.0 (1.0-1.7) 1.1 (1.0-1.7) Lipase 174 U/L (73-393) Iron Level 20 ug/dL (50-170) Total Iron Binding Capacity 416 ug/dL (250-450) Iron Saturation 5 % (15-34) Ferritin 6 ng/mL (8-252) Thyroid Stimulating Hormone (TSH) 6.845 uIU/mL (0.358-3.74) Medications Current Medications Morphine Sulfate (Morphine Sulfate) 4 mg 1X ONCE IV Last administered on at 14:55; Start 06/09/18 at 13:45; Stop 06/10/18 at 13:21; Status DC Ondansetron HCl (Zofran) 8 mg 1X ONCE IV Last administered on 06/09/18at 14:55 ; Start 06/09/18 at 13:45; Stop 06/09/18 at 13:46; Status DC Iohexol (Omnipaque 300 Mg/ml) 75 ml 1X ONCE IV Last administered on 06/09/18at 14:30; Start 06/09/18 at 14:30; Stop 06/09/18 at 14:31; Status DC Info (CONTRAST GIVEN -- Rx MONITORING) 1 each PRN DAILY PRN MC SEE COMMENTS; Start 06/09/18 at 14:30; Stop 06/11/18 at 14:29 Diphenhydramine HCl (Benadryl) 50 mg 1X ONCE PO Last administered on at 15:33; Start 06/09/18 at 15:15; Stop 06/09/18 at 15:16; Status DC Morphine Sulfate (Morphine Sulfate) 4 mg 1X ONCE IV Last administered on at 15:54; Start 06/09/18 at 15:45; Stop 06/10/18 at 13:21; Status DC Morphine Sulfate (Morphine Sulfate) 4 mg PRN Q2HR PRN IV PAIN Last administered on 06/10/18at 13:08; Start 06/09/18 at 16:30; Stop 06/10/18 at 13:21 ; Status DC Ondansetron HCl (Zofran) 8 mg 1X ONCE IV Last administered on 06/09/18at 17:01 ; Start 06/09/18 at 16:45; Stop 06/09/18 at 16:47; Status DC Diphenhydramine HCl (Benadryl) 25 mg PRN Q6HRS PRN PO ITCHING Last administered on 06/11/18at 03:11; Start 06/09/18 at 23:15 Ondansetron HCl (Zofran) 4 mg PRN Q6HRS PRN IV NAUSEA/VOMITING Last administered on 06/10/18at 23:01; Start 06/09/18 at 23:15 Trazodone HCl (Desyrel) 100 mg PRN QHS PRN PO INSOMNIA Last administered on 06/10/18at 20:30; Start 06/09/18 at 23:15 Acetaminophen/ Hydrocodone Bitart (Lortab 5/325) 1 tab PRN Q6HRS PRN PO PAIN Last administered on 06/11/18at 06:21; Start 06/10/18 at 00:15 Influenza Virus Vaccine (Afluria Trivalent [id number] Syringe) 0.5 ml ONCE ONCE VAX IM Last administered on 06/10/18at 10:36; Start 06/10/18 at 09:00; Stop 06/10/18 at 09:01; Status DC Hydromorphone HCl (Dilaudid) 0.5 mg PRN Q4HRS PRN IV pain Last administered on 06/10/18at 15:35; Start 06/10/18 at 13:30; Stop 06/10/18 at 22:50; Status DC Morphine Sulfate (Morphine Sulfate) 4 mg PRN Q2HR PRN IV PAIN Last administered on 06/11/18at 07:49; Start 06/10/18 at 23:00 Active Scripts Active Ambien (Zolpidem Tartrate) 10 Mg Tablet 1 Tab PO QHS [place] 5-325 Tablet (Acetaminophen/Hydrocodone Bitart) 1 Each Tablet 1-2 Tab PO Q4-6HRS Vitals/I & O Vital Sign - Last 24 Hours 06/10/18 06/10/18 06/10/18 06/10/18 10:34 11:04 11:48 13:08 Pulse Ox 100 100 100 100 O2 Delivery Room Air Room Air Room Air Room Air 06/10/18 06/10/18 06/10/18 06/10/18 15:35 16:05 17:37 19:00 Temp 97.8 97.8 Pulse 99 Resp 17 B/P (MAP) 123/83 (96) Pulse Ox 100 100 100 98 O2 Delivery Room Air Room Air Room Air Room Air 06/10/18 06/10/18 06/10/18 06/11/18 20:00 23:00 23:57 00:48 Temp 98.0 98.0 Pulse 92 Resp 18 16 B/P (MAP) 97/47 (64) Pulse Ox 98 98 98 O2 Delivery Room Air Room Air Room Air Room Air 06/11/18 06/11/18 06/11/18 06/11/18 01:00 03:00 03:11 05:29 Temp 98.8 98.8 Pulse 78 Resp 18 16 B/P (MAP) 116/87 (97) Pulse Ox 98 98 98 98 O2 Delivery Room Air Room Air Room Air 06/11/18 06/11/18 06/11/18 06/11/18 06:19 06:21 07:21 07:49 Resp 16 Pulse Ox 98 98 O2 Delivery Room Air Room Air Room Air Room Air Intake and Output 06/10/18 06/10/18 06/11/18 15:00 23:00 07:00 Intake Total 700 ml Balance 700 ml THI MARTINEZ MD Jun 11, 2018 08:41
[2018-06-11] MEDS: ONDANSETRON PF 4 MG/2 ML VIAL. IV PRN ×2 (10:07→17:32)
[2018-06-11 11:00] VITALS: BP 99/57
--- NOTE | 2018-06-11 11:25 | PDOC ---
SURGICAL PROGRESS NOTE Subjective Lucio for Dr Funez pt c/o persistent abdominal and pelvic pain requesting fentanyl instead of morphine Vital Signs Vital Signs Date Time Temp Pulse Resp B/P (MAP) Pulse Ox O2 Delivery O2 Flow Rate FiO2 06/11/18 10:38 Room Air 06/11/18 07:00 98.4 82 17 102/55 (71) 99 98.4 I&O Intake and Output 06/11/18 07:00 Intake Total 700 ml Balance 700 ml Intake Oral 700 ml PATIENT HAS A CARRENO: No General: Alert, Other (tearful, complains of abdominal pain) Abdomen: Soft, Other (generalized tenderness) Labs Laboratory Tests Test 06/09/18 13:38 06/09/18 13:40 06/09/18 14:45 06/10/18 04:10 Urine Collection Type Void Urine Color Yellow Urine Clarity Clear Urine pH 6.0 Urine Specific [place] 1.025 Urine Protein Negative mg/dL (NEG-TRACE) Urine Glucose (UA) Negative mg/dL (NEG) Urine Ketones (Stick) Negative mg/dL (NEG) Urine Blood Negative (NEG) Urine Nitrite Negative (NEG) Urine Bilirubin Negative (NEG) Urine Urobilinogen Dipstick 0.2 mg/dL (0.2 mg/dL) Urine Leukocyte Esterase Negative (NEG) Urine RBC 0 /HPF (0-2) Urine WBC 0 /HPF (0-4) Urine Squamous Epithelial Cells Few /LPF Urine Bacteria 0 /HPF (0-FEW) Urine Mucus Slight /LPF Bedside Urine HCG, Qualitative Hcg negative (Negative) White Blood Count 6.1 x10^3/uL (4.0-11.0) Red Blood Count 3.79 x10^6/uL (3.50-5.40) Hemoglobin 10.0 g/dL (12.0-15.5) Hematocrit 30.2 % (36.0-47.0) Mean Corpuscular Volume 80 fL (79-100) Mean Corpuscular Hemoglobin 27 pg (25-35) Mean Corpuscular Hemoglobin Concent 33 g/dL (31-37) Red Cell Distribution Width 19.8 % (11.5-14.5) Platelet Count 289 x10^3/uL (140-400) Neutrophils (%) (Auto) 36 % (31-73) Lymphocytes (%) (Auto) 55 % (24-48) Monocytes (%) (Auto) 7 % (0-9) Eosinophils (%) (Auto) 1 % (0-3) Basophils (%) (Auto) 1 % (0-3) Neutrophils # (Auto) 2.2 x10^3uL (1.8-7.7) Lymphocytes # (Auto) 3.4 x10^3/uL (1.0-4.8) Monocytes # (Auto) 0.5 x10^3/uL (0.0-1.1) Eosinophils # (Auto) 0.0 x10^3/uL (0.0-0.7) Basophils # (Auto) 0.1 x10^3/uL (0.0-0.2) Sodium Level 140 mmol/L (136-145) 142 mmol/L (136-145) Potassium Level 4.2 mmol/L (3.5-5.1) 4.2 mmol/L (3.5-5.1) Chloride Level 104 mmol/L (98-107) 106 mmol/L (98-107) Carbon Dioxide Level 25 mmol/L (21-32) 26 mmol/L (21-32) Anion Gap 11 (6-14) 10 (6-14) Blood Urea Nitrogen 11 mg/dL (7-20) 9 mg/dL (7-20) Creatinine 0.7 mg/dL (0.6-1.0) 0.8 mg/dL (0.6-1.0) Estimated GFR (Cockcroft-Gault) 113.9 97.7 BUN/Creatinine Ratio 16 (6-20) 11 (6-20) Glucose Level 83 mg/dL (70-99) 75 mg/dL (70-99) Calcium Level 8.8 mg/dL (8.5-10.1) 8.6 mg/dL (8.5-10.1) Total Bilirubin 0.2 mg/dL (0.2-1.0) 0.2 mg/dL (0.2-1.0) Aspartate Amino Transf (AST/SGOT) 52 U/L (15-37) 35 U/L (15-37) Alanine Aminotransferase (ALT/SGPT) 129 U/L (14-59) 100 U/L (14-59) Alkaline Phosphatase 64 U/L (46-116) 69 U/L (46-116) Total Protein 8.1 g/dL (6.4-8.2) 6.8 g/dL (6.4-8.2) Albumin 4.1 g/dL (3.4-5.0) 3.5 g/dL (3.4-5.0) Albumin/Globulin Ratio 1.0 (1.0-1.7) 1.1 (1.0-1.7) Lipase 174 U/L (73-393) Iron Level 20 ug/dL (50-170) Total Iron Binding Capacity 416 ug/dL (250-450) Iron Saturation 5 % (15-34) Ferritin 6 ng/mL (8-252) Thyroid Stimulating Hormone (TSH) 6.845 uIU/mL (0.358-3.74) Problem List Problems Medical Problems: (1) Abdominal pain Status: Acute Assessment/Plan will defer to [facility] for pain management Dr Funez following for possible mesh removal per patient request WILDER BRYANT MD Jun 11, 2018 11:25
[2018-06-11 15:00] VITALS: BP 107/64
--- NOTE | 2018-06-11 18:06 | PDOC ---
SURGICAL PROGRESS NOTE Subjective Pt. comfortable. Pelvic sono ROV cyst 5 cm size. Vital Signs Vital Signs Date Time Temp Pulse Resp B/P (MAP) Pulse Ox O2 Delivery O2 Flow Rate FiO2 06/11/18 17:31 Room Air 06/11/18 15:00 97.7 89 18 107/64 (78) 98 97.7 I&O Intake and Output 06/11/18 07:00 Intake Total 700 ml Balance 700 ml Intake Oral 700 ml General: Alert HEENT: Atraumatic Psych/Mental Status: Mental status NL Labs Laboratory Tests Test 06/10/18 04:10 Sodium Level 142 mmol/L (136-145) Potassium Level 4.2 mmol/L (3.5-5.1) Chloride Level 106 mmol/L (98-107) Carbon Dioxide Level 26 mmol/L (21-32) Anion Gap 10 (6-14) Blood Urea Nitrogen 9 mg/dL (7-20) Creatinine 0.8 mg/dL (0.6-1.0) Estimated GFR (Cockcroft-Gault) 97.7 BUN/Creatinine Ratio 11 (6-20) Glucose Level 75 mg/dL (70-99) Calcium Level 8.6 mg/dL (8.5-10.1) Iron Level 20 ug/dL (50-170) Total Iron Binding Capacity 416 ug/dL (250-450) Iron Saturation 5 % (15-34) Ferritin 6 ng/mL (8-252) Total Bilirubin 0.2 mg/dL (0.2-1.0) Aspartate Amino Transf (AST/SGOT) 35 U/L (15-37) Alanine Aminotransferase (ALT/SGPT) 100 U/L (14-59) Alkaline Phosphatase 69 U/L (46-116) Total Protein 6.8 g/dL (6.4-8.2) Albumin 3.5 g/dL (3.4-5.0) Albumin/Globulin Ratio 1.1 (1.0-1.7) Thyroid Stimulating Hormone (TSH) 6.845 uIU/mL (0.358-3.74) Problem List Problems Medical Problems: (1) Abdominal pain Status: Acute Assessment/Plan A: ROV cyst Abd seroma P: Will f/u with repeat sono in 6 weeks. F/u in clinic with Dr. Carter in 2 weeks. MICHAEL HARMON Jr, MD Jun 11, 2018 18:06
[2018-06-11 19:00] VITALS: BP 135/89
[2018-06-11] MEDS: traZODone 100 MG TABLET. PO PRN (21:34)
[2018-06-11] MEDS: PSYLLIUM HUSK (SUGAR FREE) 1 PKT PACKET PO SCH (22:15)
[2018-06-11] MEDS: POLYETHYLENE GLYCOL 3350 17 GM PACKET. PO SCH (22:30)
[2018-06-11 23:05] VITALS: BP 140/92
[2018-06-12] VITALS (7 sets, daily range): BP systolic 104–131; BP diastolic 61–80
[2018-06-12] MEDS: diphenhydrAMINE HCL 25 MG CAPSULE PO PRN ×4 (00:08→18:32)
[2018-06-12] MEDS: MORPHINE SULFATE 4 MG/ML VIAL. IV PRN ×9 (00:08→23:22)
[2018-06-12] MEDS: ONDANSETRON PF 4 MG/2 ML VIAL. IV PRN ×3 (00:08→21:19)
[2018-06-12] MEDS: HYDROcodone/APAP 5/325MG 1 TAB TABLET PO PRN ×3 (05:44→18:32)
[2018-06-12] MEDS: LACTULOSE 20 GM/30 ML SOLUTION. PO SCH (07:46)
[2018-06-12] MEDS: SENNOSIDES/DOCUSATE 8.6/50MG TABLET. PO PRN (07:46)
[2018-06-12] MEDS: POLYETHYLENE GLYCOL 3350 17 GM PACKET. PO SCH (07:46)
[2018-06-12] MEDS: PSYLLIUM HUSK (SUGAR FREE) 1 PKT PACKET PO SCH (07:46)
--- NOTE | 2018-06-12 09:05 | PDOC ---
PROGRESS NOTES Chief Complaint Chief Complaint Intractable abdominal pain Abdominal wall cyst Ovarian cyst Transaminitis History of Present Illness History of Present Illness increasing pain for the past week, rates it as severe, 9-10/10, sharp and colicky, worse with movement, she has been calling in sick to work due to this. She notes no new medications or sick contacts, no dysuria, no hematuria. On ROS has GERD 2/2 report of hiatal hernia s/p Harinder ~2003 and ventral hernia s/p mesh at [facility], as well as a concern about an abnormal pap smear 4 years ago she failed to follow up on. Noted with anemia, Hb 10, new and AST [address] scan confirms cystic mass similar to prior and 4cm ovarian cyst. Admitted for pain control and evaluation of abdominal fluid collection. Seen by IR, unable to navigate to drain fluid collection She is insistent this only occurs every 1.5 years, would like the mesh removed. A/P: Intractable abdominal pain - IR unable to drain cystic collection 6.3 x 4.2 x 6.4 cm, likely seroma. general surgery consultation, states her original surgery was at [facility] for mesh placement and would like it removed. Ovarian cyst - unlikely etiology of abdominal pain. 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 Transaminitis - with her abdominal pain could be related, pattern could be thyroid, autoimmune, medication related, will trend FEN - general diet GERD IV PROTONIX 40MG DAILY PPX - heparin FULL CODE Inpatient for intractable abdominal pain, will likely require 2 midnights of care. Vitals Vitals Vital Signs Date Time Temp Pulse Resp B/P (MAP) Pulse Ox O2 Delivery O2 Flow Rate FiO2 06/12/18 08:17 Room Air 06/12/18 06:29 16 99 06/12/18 04:46 98.3 81 104/61 (75) 98.3 Physical Exam General: Alert, Oriented X3, Cooperative, mild distress Heart: Regular rate, Normal S1, Normal S2 Lungs: Clear Abdomen: Soft, Other (generalized tenderness) Extremities: No clubbing, No cyanosis, No edema Skin: No rashes, No breakdown Assessment and Plan Assessmemt and Plan Problems Medical Problems: (1) Abdominal pain Status: Acute Comment Review of Relevant I have reviewed the following items ruth (where applicable) has been applied. Medications Current Medications Morphine Sulfate (Morphine Sulfate) 4 mg 1X ONCE IV Last administered on at 14:55; Start 06/09/18 at 13:45; Stop 06/10/18 at 13:21; Status DC Ondansetron HCl (Zofran) 8 mg 1X ONCE IV Last administered on 06/09/18at 14:55 ; Start 06/09/18 at 13:45; Stop 06/09/18 at 13:46; Status DC Iohexol (Omnipaque 300 Mg/ml) 75 ml 1X ONCE IV Last administered on 06/09/18at 14:30; Start 06/09/18 at 14:30; Stop 06/09/18 at 14:31; Status DC Info (CONTRAST GIVEN -- Rx MONITORING) 1 each PRN DAILY PRN MC SEE COMMENTS; Start 06/09/18 at 14:30; Stop 06/11/18 at 14:29; Status DC Diphenhydramine HCl (Benadryl) 50 mg 1X ONCE PO Last administered on at 15:33; Start 06/09/18 at 15:15; Stop 06/09/18 at 15:16; Status DC Morphine Sulfate (Morphine Sulfate) 4 mg 1X ONCE IV Last administered on at 15:54; Start 06/09/18 at 15:45; Stop 06/10/18 at 13:21; Status DC Morphine Sulfate (Morphine Sulfate) 4 mg PRN Q2HR PRN IV PAIN Last administered on 06/10/18at 13:08; Start 06/09/18 at 16:30; Stop 06/10/18 at 13:21 ; Status DC Ondansetron HCl (Zofran) 8 mg 1X ONCE IV Last administered on 06/09/18at 17:01 ; Start 06/09/18 at 16:45; Stop 06/09/18 at 16:47; Status DC Diphenhydramine HCl (Benadryl) 25 mg PRN Q6HRS PRN PO ITCHING Last administered on 06/12/18at 05:44; Start 06/09/18 at 23:15 Ondansetron HCl (Zofran) 4 mg PRN Q6HRS PRN IV NAUSEA/VOMITING Last administered on 06/12/18at 07:46; Start 06/09/18 at 23:15 Trazodone HCl (Desyrel) 100 mg PRN QHS PRN PO INSOMNIA Last administered on 21:34; Start 06/09/18 at 23:15 Acetaminophen/ Hydrocodone Bitart (Lortab 5/325) 1 tab PRN Q6HRS PRN PO PAIN Last administered on 06/12/18 05:44; Start 06/10/18 at 00:15 Influenza Virus Vaccine (Afluria Trivalent [id number] Syringe) 0.5 ml ONCE ONCE VAX IM Last administered on 06/10/18 10:36; Start 06/10/18 at 09:00; Stop 06/10/18 at 09:01; Status DC Hydromorphone HCl (Dilaudid) 0.5 mg PRN Q4HRS PRN IV pain Last administered on 06/10/18 15:35; Start 06/10/18 at 13:30; Stop 06/10/18 at 22:50; Status DC Morphine Sulfate (Morphine Sulfate) 4 mg PRN Q2HR PRN IV PAIN Last administered on 06/12/18 07:47; Start 06/10/18 at 23:00 Senna/Docusate Sodium (Senna Plus) 2 tab PRN BID PRN PO CONSTIPATION Last administered on 06/12/18 07:46; Start 06/11/18 at 22:15 Lactulose (Lactulose) 20 gm DAILY PO Last administered on 06/12/18 07:46; Start 06/12/18 at 09:00 Psyllium Hydrophilic Mucilloid (Metamucil Fiber Packet) 1 pkt DAILY PO Last administered on 06/12/18 07:46; Start 06/11/18 at 22:15 Polyethylene Glycol (miraLAX PACKET) 17 gm DAILY PO Last administered on 07:46; Start 06/11/18 at 22:30 Active Scripts Active Ambien (Zolpidem Tartrate) 10 Mg Tablet 1 Tab PO QHS [place] 5-325 Tablet (Acetaminophen/Hydrocodone Bitart) 1 Each Tablet 1-2 Tab PO Q4-6HRS Vitals/I & O Vital Sign - Last 24 Hours 06/11/18 06/11/18 06/11/18 06/11/18 10:08 11:00 12:26 12:26 Temp 98.7 98.7 Pulse 99 Resp 18 B/P (MAP) 99/57 (71) Pulse Ox 98 O2 Delivery Room Air Room Air Room Air Room Air 06/11/18 06/11/18 06/11/18 06/11/18 15:00 15:06 17:31 19:00 Temp 97.7 98.9 97.7 98.9 Pulse 89 97 Resp 18 20 B/P (MAP) 107/64 (78) 135/89 (104) Pulse Ox 98 98 O2 Delivery Room Air Room Air Room Air Room Air 06/11/18 06/11/18 06/11/18 06/11/18 19:05 20:14 21:34 23:05 Pulse 101 Resp 16 16 20 B/P (MAP) 140/92 (108) Pulse Ox 98 98 99 O2 Delivery Room Air Room Air Room Air Room Air 06/12/18 06/12/18 06/12/18 06/12/18 00:08 04:37 04:46 04:59 Temp 98.3 98.3 Pulse 81 Resp 16 16 20 16 B/P (MAP) 104/61 (75) Pulse Ox 99 99 99 99 O2 Delivery Room Air Room Air Room Air 06/12/18 06/12/18 06/12/18 06/12/18 05:44 06:29 07:47 08:17 Resp 18 16 Pulse Ox 99 99 O2 Delivery Room Air Room Air Room Air Room Air Intake and Output 06/11/18 06/11/18 06/12/18 15:00 23:00 07:00 Intake Total 2000 ml Output Total 2 ml 0 ml Balance 1998 ml 0 ml HAVEN SENIOR MD Jun 12, 2018 09:05
--- NOTE | 2018-06-12 10:21 | PDOC ---
SURGICAL PROGRESS NOTE Subjective Lucio hira Funez pt describes reflux type sx as "feels like fire could come out of my mouth" asking for antacids, adding Phenergren for nausea (was taking at home) Vital Signs Vital Signs Date Time Temp Pulse Resp B/P (MAP) Pulse Ox O2 Delivery O2 Flow Rate FiO2 06/12/18 10:11 Room Air 06/12/18 07:00 98.0 84 17 113/80 (91) 100 98.0 I&O Intake and Output 06/12/18 07:00 Intake Total 2000 ml Output Total 2 ml Balance 1998 ml Intake Oral 2000 ml Output Urine Total 2 ml # Voids 1 PATIENT HAS A CARRENO: No General: Alert, Oriented X3, No acute distress Abdomen: Soft Problem List Problems Medical Problems: (1) Abdominal pain Status: Acute Assessment/Plan s/p HH repair s/p VIHR with mesh, hx of seroma associated with same ROV cystic mass will add meds per pt request no acute surgical recs WILDER BRYANT MD Jun 12, 2018 10:21
[2018-06-12] MEDS ORDERED: MAG HYDROX/ALUMINUM HYD/SIMETH 30 ML ORAL.SUSP PO PRN (10:30)
[2018-06-12] MEDS: PROMETHAZINE 12.5 MG TABLET. PO PRN (15:33)
[2018-06-12] MEDS: traZODone 100 MG TABLET. PO PRN (20:38)
[2018-06-12] MEDS: PANTOPRAZOLE IV PUSH 40 MG VIAL. IVP SCH (20:59)
[2018-06-13] MEDS: diphenhydrAMINE HCL 25 MG CAPSULE PO PRN ×4 (01:37→20:28)
[2018-06-13] MEDS: PROMETHAZINE 12.5 MG TABLET. PO PRN ×2 (01:37→20:28)
[2018-06-13] MEDS: MORPHINE SULFATE 4 MG/ML VIAL. IV PRN ×9 (01:38→22:27)
[2018-06-13 03:06] VITALS: BP 106/63
[2018-06-13] MEDS: HYDROcodone/APAP 5/325MG 1 TAB TABLET PO PRN ×2 (03:28→09:59)
[2018-06-13 05:11] LABS: BASO % 0 % (0-3); EOS # 0.1 x10^3/uL (0.0-0.7); EOS % 1 % (0-3); HEMATOCRIT 27.6 % (36.0-47.0); HEMOGLOBIN 9.3 g/dL (12.0-15.5); LYMPH # 3.1 x10^3/uL (1.0-4.8); LYMPH % 53 % (24-48); MEAN CORPUSCULAR HEMOGLOBIN 27 pg (25-35); MEAN CORPUSCULAR HGB CONC 34 g/dL (31-37); MEAN CORPUSCULAR VOLUME 81 fL (79-100); MONO # 0.5 x10^3/uL (0.0-1.1); MONO % 8 % (0-9); NEUT # 2.2 x10^3uL (1.8-7.7); NEUT % 38 % (31-73); PLATELET COUNT 280 x10^3/uL (140-400); RED BLOOD COUNT 3.42 x10^6/uL (3.50-5.40); WHITE BLOOD COUNT 5.9 x10^3/uL (4.0-11.0)
[2018-06-13 05:29] LABS: ALBUMIN 3.4 g/dL (3.4-5.0); ALBUMIN/GLOBULIN RATIO 0.9 (1.0-1.7); CALCIUM 8.9 mg/dL (8.5-10.1); CREATININE 0.7 mg/dL (0.6-1.0); GFR 113.9; POTASSIUM 4.2 mmol/L (3.5-5.1); TOTAL BILIRUBIN 0.1 mg/dL (0.2-1.0); TOTAL PROTEIN 7.2 g/dL (6.4-8.2)
[2018-06-13] MEDS: ONDANSETRON PF 4 MG/2 ML VIAL. IV PRN ×3 (06:28→19:46)
[2018-06-13] MEDS: PANTOPRAZOLE IV PUSH 40 MG VIAL. IVP SCH (06:28)
[2018-06-13 07:05] VITALS: BP 109/67
[2018-06-13] MEDS ORDERED: PANTOPRAZOLE IV PUSH 40 MG VIAL. IVP SCH (07:30)
--- NOTE | 2018-06-13 08:33 | PDOC ---
DILCIA C[employer]PNTER [employer] 06/13/18 0833: SURGICAL PROGRESS NOTE Subjective reports dysphagia, food sticks, reflux and emesis ongoing pain--no significant improvement, asking about pain med changes constipation Vital Signs Vital Signs Date Time Temp Pulse Resp B/P (MAP) Pulse Ox O2 Delivery O2 Flow Rate FiO2 06/13/18 07:05 97.5 85 16 109/67 (81) 100 Room Air 97.5 I&O Intake and Output 06/13/18 07:00 Intake Total 1000 ml Balance 1000 ml Intake Oral 1000 ml # Voids 3 General: Alert, Oriented X3, Cooperative, No acute distress Abdomen: Soft, Other (TTP generalized) Labs Laboratory Tests Test 06/13/18 04:15 White Blood Count 5.9 x10^3/uL (4.0-11.0) Red Blood Count 3.42 x10^6/uL (3.50-5.40) Hemoglobin 9.3 g/dL (12.0-15.5) Hematocrit 27.6 % (36.0-47.0) Mean Corpuscular Volume 81 fL (79-100) Mean Corpuscular Hemoglobin 27 pg (25-35) Mean Corpuscular Hemoglobin Concent 34 g/dL (31-37) Red Cell Distribution Width 20.0 % (11.5-14.5) Platelet Count 280 x10^3/uL (140-400) Neutrophils (%) (Auto) 38 % (31-73) Lymphocytes (%) (Auto) 53 % (24-48) Monocytes (%) (Auto) 8 % (0-9) Eosinophils (%) (Auto) 1 % (0-3) Basophils (%) (Auto) 0 % (0-3) Neutrophils # (Auto) 2.2 x10^3uL (1.8-7.7) Lymphocytes # (Auto) 3.1 x10^3/uL (1.0-4.8) Monocytes # (Auto) 0.5 x10^3/uL (0.0-1.1) Eosinophils # (Auto) 0.1 x10^3/uL (0.0-0.7) Basophils # (Auto) 0.0 x10^3/uL (0.0-0.2) Sodium Level 141 mmol/L (136-145) Potassium Level 4.2 mmol/L (3.5-5.1) Chloride Level 104 mmol/L (98-107) Carbon Dioxide Level 27 mmol/L (21-32) Anion Gap 10 (6-14) Blood Urea Nitrogen 12 mg/dL (7-20) Creatinine 0.7 mg/dL (0.6-1.0) Estimated GFR (Cockcroft-Gault) 113.9 BUN/Creatinine Ratio 17 (6-20) Glucose Level 115 mg/dL (70-99) Calcium Level 8.9 mg/dL (8.5-10.1) Total Bilirubin 0.1 mg/dL (0.2-1.0) Aspartate Amino Transf (AST/SGOT) 49 U/L (15-37) Alanine Aminotransferase (ALT/SGPT) 107 U/L (14-59) Alkaline Phosphatase 70 U/L (46-116) Total Protein 7.2 g/dL (6.4-8.2) Albumin 3.4 g/dL (3.4-5.0) Albumin/Globulin Ratio 0.9 (1.0-1.7) Laboratory Tests Test 06/13/18 04:15 White Blood Count 5.9 x10^3/uL (4.0-11.0) Red Blood Count 3.42 x10^6/uL (3.50-5.40) Hemoglobin 9.3 g/dL (12.0-15.5) Hematocrit 27.6 % (36.0-47.0) Mean Corpuscular Volume 81 fL (79-100) Mean Corpuscular Hemoglobin 27 pg (25-35) Mean Corpuscular Hemoglobin Concent 34 g/dL (31-37) Red Cell Distribution Width 20.0 % (11.5-14.5) Platelet Count 280 x10^3/uL (140-400) Neutrophils (%) (Auto) 38 % (31-73) Lymphocytes (%) (Auto) 53 % (24-48) Monocytes (%) (Auto) 8 % (0-9) Eosinophils (%) (Auto) 1 % (0-3) Basophils (%) (Auto) 0 % (0-3) Neutrophils # (Auto) 2.2 x10^3uL (1.8-7.7) Lymphocytes # (Auto) 3.1 x10^3/uL (1.0-4.8) Monocytes # (Auto) 0.5 x10^3/uL (0.0-1.1) Eosinophils # (Auto) 0.1 x10^3/uL (0.0-0.7) Basophils # (Auto) 0.0 x10^3/uL (0.0-0.2) Sodium Level 141 mmol/L (136-145) Potassium Level 4.2 mmol/L (3.5-5.1) Chloride Level 104 mmol/L (98-107) Carbon Dioxide Level 27 mmol/L (21-32) Anion Gap 10 (6-14) Blood Urea Nitrogen 12 mg/dL (7-20) Creatinine 0.7 mg/dL (0.6-1.0) Estimated GFR (Cockcroft-Gault) 113.9 BUN/Creatinine Ratio 17 (6-20) Glucose Level 115 mg/dL (70-99) Calcium Level 8.9 mg/dL (8.5-10.1) Total Bilirubin 0.1 mg/dL (0.2-1.0) Aspartate Amino Transf (AST/SGOT) 49 U/L (15-37) Alanine Aminotransferase (ALT/SGPT) 107 U/L (14-59) Alkaline Phosphatase 70 U/L (46-116) Total Protein 7.2 g/dL (6.4-8.2) Albumin 3.4 g/dL (3.4-5.0) Albumin/Globulin Ratio 0.9 (1.0-1.7) Problem List Problems Medical Problems: (1) Abdominal pain Status: Acute Assessment/Plan seroma, chronic pain electively Dr Funez planning mesh removal will ask GI to eval-swallowing issues, reflux will ask pain clinic to eval -chronic pain, multiple narcs MELIZA FUNEZ MD 06/13/18 1552: SURGICAL PROGRESS NOTE Assessment/Plan Pt seen and examined. Agree with MsKatey Carpenter's note Pt with c/o difficulty swallowing, will ask Gi to evaluate abd soft, TTP periumbilical cont supportive care. DILCIA CARPENTER [employer] Jun 13, 2018 08:33 MELIZA FUNEZ MD Jun 13, 2018 15:52
[2018-06-13] MEDS: PSYLLIUM HUSK (SUGAR FREE) 1 PKT PACKET PO SCH (08:36)
[2018-06-13] MEDS: POLYETHYLENE GLYCOL 3350 17 GM PACKET. PO SCH ×2 (08:37→19:46)
[2018-06-13] MEDS: LACTULOSE 20 GM/30 ML SOLUTION. PO SCH (08:37)
[2018-06-13 10:46] VITALS: BP 104/56
--- NOTE | 2018-06-13 12:01 | PDOC ---
PROGRESS NOTES Chief Complaint Chief Complaint Intractable abdominal pain Abdominal wall cyst Ovarian cyst Transaminitis Menorrhagia History of Present Illness History of Present Illness Gen. surgery note reviewed-outpatient removal mesh sometime Abdominal pain continues Maybe some element of symptom magnification-very tender on my mild palpation of the epigastric and periumbilical area CAT scan of abdomen and pelvis reviewed-some ovarian cysts 4 cm, and other benign findings Read API ARCHITECT [id number] Dr. Carter 2 weeks with repeat sono She still claims she has menorrhagia, 7 days bleed, fully soaked pads Hemoglobin did drop to 9 from 10 Plan: Change Lortab to Percocet 10-has been getting more/pain uncontrolled still GI consulted for the dysphagia etc. issues History of what sounds like GERD, hernia Pain management also consulted TSH is 6-might need to check T3-T4-start Synthroid since symptoms dysphagia etc. ? Reconsult API ARCHITECT-up pill for the ongoing menorrhagia? Discussed with RN Vitals Vitals Vital Signs Date Time Temp Pulse Resp B/P (MAP) Pulse Ox O2 Delivery O2 Flow Rate FiO2 06/13/18 10:46 98.6 97 16 104/56 (72) 99 Room Air 98.6 Physical Exam General: Alert, Oriented X3, Cooperative, No acute distress Heart: Regular rate, Normal S1, Normal S2 Lungs: Clear Abdomen: Soft, Other (TTP generalized) Extremities: No clubbing, No cyanosis, No edema Skin: No rashes, No breakdown Labs LABS Laboratory Tests Test 06/13/18 04:15 White Blood Count 5.9 x10^3/uL (4.0-11.0) Red Blood Count 3.42 x10^6/uL (3.50-5.40) Hemoglobin 9.3 g/dL (12.0-15.5) Hematocrit 27.6 % (36.0-47.0) Mean Corpuscular Volume 81 fL (79-100) Mean Corpuscular Hemoglobin 27 pg (25-35) Mean Corpuscular Hemoglobin Concent 34 g/dL (31-37) Red Cell Distribution Width 20.0 % (11.5-14.5) Platelet Count 280 x10^3/uL (140-400) Neutrophils (%) (Auto) 38 % (31-73) Lymphocytes (%) (Auto) 53 % (24-48) Monocytes (%) (Auto) 8 % (0-9) Eosinophils (%) (Auto) 1 % (0-3) Basophils (%) (Auto) 0 % (0-3) Neutrophils # (Auto) 2.2 x10^3uL (1.8-7.7) Lymphocytes # (Auto) 3.1 x10^3/uL (1.0-4.8) Monocytes # (Auto) 0.5 x10^3/uL (0.0-1.1) Eosinophils # (Auto) 0.1 x10^3/uL (0.0-0.7) Basophils # (Auto) 0.0 x10^3/uL (0.0-0.2) Sodium Level 141 mmol/L (136-145) Potassium Level 4.2 mmol/L (3.5-5.1) Chloride Level 104 mmol/L (98-107) Carbon Dioxide Level 27 mmol/L (21-32) Anion Gap 10 (6-14) Blood Urea Nitrogen 12 mg/dL (7-20) Creatinine 0.7 mg/dL (0.6-1.0) Estimated GFR (Cockcroft-Gault) 113.9 BUN/Creatinine Ratio 17 (6-20) Glucose Level 115 mg/dL (70-99) Calcium Level 8.9 mg/dL (8.5-10.1) Total Bilirubin 0.1 mg/dL (0.2-1.0) Aspartate Amino Transf (AST/SGOT) 49 U/L (15-37) Alanine Aminotransferase (ALT/SGPT) 107 U/L (14-59) Alkaline Phosphatase 70 U/L (46-116) Total Protein 7.2 g/dL (6.4-8.2) Albumin 3.4 g/dL (3.4-5.0) Albumin/Globulin Ratio 0.9 (1.0-1.7) Review of Systems Review of Systems Abdominal pain, menorrhagia, the rest of ROS 14 point negative Assessment and Plan Assessmemt and Plan Problems Medical Problems: (1) Abdominal pain Status: Acute Comment Review of Relevant I have reviewed the following items ruth (where applicable) has been applied. Labs Laboratory Tests Test 06/13/18 04:15 White Blood Count 5.9 x10^3/uL (4.0-11.0) Red Blood Count 3.42 x10^6/uL (3.50-5.40) Hemoglobin 9.3 g/dL (12.0-15.5) Hematocrit 27.6 % (36.0-47.0) Mean Corpuscular Volume 81 fL (79-100) Mean Corpuscular Hemoglobin 27 pg (25-35) Mean Corpuscular Hemoglobin Concent 34 g/dL (31-37) Red Cell Distribution Width 20.0 % (11.5-14.5) Platelet Count 280 x10^3/uL (140-400) Neutrophils (%) (Auto) 38 % (31-73) Lymphocytes (%) (Auto) 53 % (24-48) Monocytes (%) (Auto) 8 % (0-9) Eosinophils (%) (Auto) 1 % (0-3) Basophils (%) (Auto) 0 % (0-3) Neutrophils # (Auto) 2.2 x10^3uL (1.8-7.7) Lymphocytes # (Auto) 3.1 x10^3/uL (1.0-4.8) Monocytes # (Auto) 0.5 x10^3/uL (0.0-1.1) Eosinophils # (Auto) 0.1 x10^3/uL (0.0-0.7) Basophils # (Auto) 0.0 x10^3/uL (0.0-0.2) Sodium Level 141 mmol/L (136-145) Potassium Level 4.2 mmol/L (3.5-5.1) Chloride Level 104 mmol/L (98-107) Carbon Dioxide Level 27 mmol/L (21-32) Anion Gap 10 (6-14) Blood Urea Nitrogen 12 mg/dL (7-20) Creatinine 0.7 mg/dL (0.6-1.0) Estimated GFR (Cockcroft-Gault) 113.9 BUN/Creatinine Ratio 17 (6-20) Glucose Level 115 mg/dL (70-99) Calcium Level 8.9 mg/dL (8.5-10.1) Total Bilirubin 0.1 mg/dL (0.2-1.0) Aspartate Amino Transf (AST/SGOT) 49 U/L (15-37) Alanine Aminotransferase (ALT/SGPT) 107 U/L (14-59) Alkaline Phosphatase 70 U/L (46-116) Total Protein 7.2 g/dL (6.4-8.2) Albumin 3.4 g/dL (3.4-5.0) Albumin/Globulin Ratio 0.9 (1.0-1.7) Laboratory Tests Test 06/13/18 04:15 White Blood Count 5.9 x10^3/uL (4.0-11.0) Red Blood Count 3.42 x10^6/uL (3.50-5.40) Hemoglobin 9.3 g/dL (12.0-15.5) Hematocrit 27.6 % (36.0-47.0) Mean Corpuscular Volume 81 fL (79-100) Mean Corpuscular Hemoglobin 27 pg (25-35) Mean Corpuscular Hemoglobin Concent 34 g/dL (31-37) Red Cell Distribution Width 20.0 % (11.5-14.5) Platelet Count 280 x10^3/uL (140-400) Neutrophils (%) (Auto) 38 % (31-73) Lymphocytes (%) (Auto) 53 % (24-48) Monocytes (%) (Auto) 8 % (0-9) Eosinophils (%) (Auto) 1 % (0-3) Basophils (%) (Auto) 0 % (0-3) Neutrophils # (Auto) 2.2 x10^3uL (1.8-7.7) Lymphocytes # (Auto) 3.1 x10^3/uL (1.0-4.8) Monocytes # (Auto) 0.5 x10^3/uL (0.0-1.1) Eosinophils # (Auto) 0.1 x10^3/uL (0.0-0.7) Basophils # (Auto) 0.0 x10^3/uL (0.0-0.2) Sodium Level 141 mmol/L (136-145) Potassium Level 4.2 mmol/L (3.5-5.1) Chloride Level 104 mmol/L (98-107) Carbon Dioxide Level 27 mmol/L (21-32) Anion Gap 10 (6-14) Blood Urea Nitrogen 12 mg/dL (7-20) Creatinine 0.7 mg/dL (0.6-1.0) Estimated GFR (Cockcroft-Gault) 113.9 BUN/Creatinine Ratio 17 (6-20) Glucose Level 115 mg/dL (70-99) Calcium Level 8.9 mg/dL (8.5-10.1) Total Bilirubin 0.1 mg/dL (0.2-1.0) Aspartate Amino Transf (AST/SGOT) 49 U/L (15-37) Alanine Aminotransferase (ALT/SGPT) 107 U/L (14-59) Alkaline Phosphatase 70 U/L (46-116) Total Protein 7.2 g/dL (6.4-8.2) Albumin 3.4 g/dL (3.4-5.0) Albumin/Globulin Ratio 0.9 (1.0-1.7) Medications Current Medications Morphine Sulfate (Morphine Sulfate) 4 mg 1X ONCE IV Last administered on at 14:55; Start 06/09/18 at 13:45; Stop 06/10/18 at 13:21; Status DC Ondansetron HCl (Zofran) 8 mg 1X ONCE IV Last administered on 06/09/18at 14:55 ; Start 06/09/18 at 13:45; Stop 06/09/18 at 13:46; Status DC Iohexol (Omnipaque 300 Mg/ml) 75 ml 1X ONCE IV Last administered on 06/09/18at 14:30; Start 06/09/18 at 14:30; Stop 06/09/18 at 14:31; Status DC Info (CONTRAST GIVEN -- Rx MONITORING) 1 each PRN DAILY PRN MC SEE COMMENTS; Start 06/09/18 at 14:30; Stop 06/11/18 at 14:29; Status DC Diphenhydramine HCl (Benadryl) 50 mg 1X ONCE PO Last administered on at 15:33; Start 06/09/18 at 15:15; Stop 06/09/18 at 15:16; Status DC Morphine Sulfate (Morphine Sulfate) 4 mg 1X ONCE IV Last administered on at 15:54; Start 06/09/18 at 15:45; Stop 06/10/18 at 13:21; Status DC Morphine Sulfate (Morphine Sulfate) 4 mg PRN Q2HR PRN IV PAIN Last administered on 06/10/18at 13:08; Start 06/09/18 at 16:30; Stop 06/10/18 at 13:21 ; Status DC Ondansetron HCl (Zofran) 8 mg 1X ONCE IV Last administered on 06/09/18 17:01 ; Start 06/09/18 at 16:45; Stop 06/09/18 at 16:47; Status DC Diphenhydramine HCl (Benadryl) 25 mg PRN Q6HRS PRN PO ITCHING Last administered on 06/13/18 08:42; Start 06/09/18 at 23:15 Ondansetron HCl (Zofran) 4 mg PRN Q6HRS PRN IV NAUSEA/VOMITING Last administered on 06/13/18 06:28; Start 06/09/18 at 23:15 Trazodone HCl (Desyrel) 100 mg PRN QHS PRN PO INSOMNIA Last administered on 20:38; Start 06/09/18 at 23:15 Acetaminophen/ Hydrocodone Bitart (Lortab 5/325) 1 tab PRN Q6HRS PRN PO PAIN Last administered on 06/13/18 09:59; Start 06/10/18 at 00:15; Stop 06/13/18 at 11:20; Status DC Influenza Virus Vaccine (Afluria Trivalent 9470-8508 Syringe) 0.5 ml ONCE ONCE VAX IM Last administered on 06/10/18at 10:36; Start 06/10/18 at 09:00; Stop 06/10/18 at 09:01; Status DC Hydromorphone HCl (Dilaudid) 0.5 mg PRN Q4HRS PRN IV pain Last administered on 06/10/18at 15:35; Start 06/10/18 at 13:30; Stop 06/10/18 at 22:50; Status DC Morphine Sulfate (Morphine Sulfate) 4 mg PRN Q2HR PRN IV PAIN Last administered on 06/13/18 08:42; Start 06/10/18 at 23:00 Senna/Docusate Sodium (Senna Plus) 2 tab PRN BID PRN PO CONSTIPATION Last administered on 06/12/18 07:46; Start 06/11/18 at 22:15 Lactulose (Lactulose) 20 gm DAILY PO Last administered on 06/13/18at 08:37; Start 06/12/18 at 09:00 Psyllium Hydrophilic Mucilloid (Metamucil Fiber Packet) 1 pkt DAILY PO Last administered on 06/13/18at 08:36; Start 06/11/18 at 22:15 Polyethylene Glycol (miraLAX PACKET) 17 gm DAILY PO Last administered on at 08:37; Start 06/11/18 at 22:30 Al Hydroxide/Mg Hydroxide (Mylanta Plus Xs) 30 ml PRN Q2HR PRN PO HEARTBURN / GAS; Start 06/12/18 at 10:30 Promethazine HCl (Phenergan) 12.5 mg PRN Q6HRS PRN PO NAUSEA/VOMITING Last administered on 06/13/18at 01:37; Start 06/12/18 at 10:30 Pantoprazole Sodium (PROTONIX VIAL for IV PUSH) 40 mg DAILYAC IVP ; Start at 07:30; Stop 06/13/18 at 07:30; Status DC Pantoprazole Sodium (PROTONIX VIAL for IV PUSH) 40 mg DAILYAC IVP Last administered on 06/13/18at 06:28; Start 06/12/18 at 20:45; Stop 06/13/18 at 11:20 ; Status DC Oxycodone/ Acetaminophen (Percocet 10/325) 1 tab PRN Q4HRS PRN PO PAIN; Start 06/13/18 at 11:30 Active Scripts Active Ambien (Zolpidem Tartrate) 10 Mg Tablet 1 Tab PO QHS [place] 5-325 Tablet (Acetaminophen/Hydrocodone Bitart) 1 Each Tablet 1-2 Tab PO Q4-6HRS Vitals/I & O Vital Sign - Last 24 Hours 06/12/18 06/12/18 06/12/18 06/12/18 12:01 12:16 15:00 15:33 Temp 98.7 98.7 Pulse 90 Resp 18 B/P (MAP) 117/72 (87) Pulse Ox 99 O2 Delivery Room Air Room Air Room Air Nasal Cannula 06/12/18 06/12/18 06/12/18 06/12/18 16:36 18:32 18:32 19:00 Temp 98.8 98.8 98.8 98.8 Pulse 88 95 Resp 18 20 B/P (MAP) 111/69 (83) 131/79 (96) Pulse Ox 99 96 O2 Delivery Room Air Room Air Room Air Room Air 06/12/18 06/12/18 06/12/18 06/12/18 19:10 20:39 23:06 23:22 Temp 97.6 97.6 Pulse 94 Resp 17 20 16 B/P (MAP) 125/71 (89) Pulse Ox 96 99 99 O2 Delivery Room Air Room Air Room Air Room Air 06/13/18 06/13/18 06/13/18 06/13/18 01:38 03:06 03:28 04:25 Temp 98.4 98.4 Pulse 87 Resp 16 20 15 16 B/P (MAP) 106/63 (77) Pulse Ox 99 98 98 98 O2 Delivery Room Air Room Air Room Air Room Air 06/13/18 06/13/18 06/13/18 06/13/18 04:25 06:27 06:43 07:05 Temp 97.5 97.5 Pulse 85 Resp 16 16 15 16 B/P (MAP) 109/67 (81) Pulse Ox 98 98 100 O2 Delivery Room Air Room Air Room Air 06/13/18 06/13/18 06/13/18 06/13/18 07:45 08:42 09:15 09:59 Pulse Ox 100 100 100 O2 Delivery Room Air Room Air Room Air Room Air 06/13/18 10:46 Temp 98.6 98.6 Pulse 97 Resp 16 B/P (MAP) 104/56 (72) Pulse Ox 99 O2 Delivery Room Air Intake and Output 06/12/18 06/12/18 06/13/18 15:00 23:00 07:00 Intake Total 1000 ml Balance 1000 ml ANNA BLAS MD Jun 13, 2018 12:01
--- NOTE | 2018-06-13 12:37 | PDOC2 ---
GI CONSULT Reason For Consult: Reflux, dysphagia HPI: HPI: 37 y/o female admitted on 06/09/18. Chronic abd pain - worse lately, diffuse, constant. On imaging, has post-operative cystic seroma drained by IR in 2017. Surgery following, discussion of elective mesh removal. Additionally, s/p Hairnder fundoplication @ [facility] in 2002, now with dysphagia and "vomiting" x 1 month, getting worse. Now felt with anything she eats or drinks in oropharynx, midchest, and epigastrium. Describes vomiting and "spitting up" liquids - maybe kept some hot chocolate down this morning but thinks not much else for a few days. Says she felt this way prior to Harinder. GERD might be worse though has taken Zantac regularly for awhile. Estimates a 20 pounds weight loss over the past year or so. Feels bloated. Typically no issues w/ diarrhea or constipation though now hasn't stooled since last . Denies bleeding. Last EGD around the time of Harinder. No previous colonoscopy. No GB , liver, or pancreas history. No NSAIDs. Previously took hydrocodone for abd pain. H/o RA previously on prednisone and methotrexate but not recently due to no insurance, unable to work w/ abd pain. Asks me for Fentanyl because morphine doesn't help. PMH: PMH: asthma, GERD, RA, PTSD, anxiety, hypothyroidism, Harinder fundoplication, ventral hernia repair w/ mesh, , appendectomy FH: Family History: No pertinent hx Social History: Smoke: <1 pack per day ALCOHOL: none Drugs: None ROS: GEN: Denies fevers, chills, sweats HEENT: Denies blurred vision, sore throat CV: Denies chest pain RESP: Denies shortness of air, cough GI: Per HPI : Denies hematuria, dysuria ENDO: +weight loss NEURO: Denies confusion, dizziness MSK: Denies weakness, joint pain/swelling SKIN: Denies jaundice, pruritus Vitals: Vitals: Vital Signs Date Time Temp Pulse Resp B/P (MAP) Pulse Ox O2 Delivery O2 Flow Rate FiO2 06/13/18 12:04 99 Room Air 06/13/18 10:46 98.6 97 16 104/56 (72) 98.6 Labs: Labs: Laboratory Tests Test 06/13/18 04:15 White Blood Count 5.9 x10^3/uL (4.0-11.0) Red Blood Count 3.42 x10^6/uL (3.50-5.40) Hemoglobin 9.3 g/dL (12.0-15.5) Hematocrit 27.6 % (36.0-47.0) Mean Corpuscular Volume 81 fL (79-100) Mean Corpuscular Hemoglobin 27 pg (25-35) Mean Corpuscular Hemoglobin Concent 34 g/dL (31-37) Red Cell Distribution Width 20.0 % (11.5-14.5) Platelet Count 280 x10^3/uL (140-400) Neutrophils (%) (Auto) 38 % (31-73) Lymphocytes (%) (Auto) 53 % (24-48) Monocytes (%) (Auto) 8 % (0-9) Eosinophils (%) (Auto) 1 % (0-3) Basophils (%) (Auto) 0 % (0-3) Neutrophils # (Auto) 2.2 x10^3uL (1.8-7.7) Lymphocytes # (Auto) 3.1 x10^3/uL (1.0-4.8) Monocytes # (Auto) 0.5 x10^3/uL (0.0-1.1) Eosinophils # (Auto) 0.1 x10^3/uL (0.0-0.7) Basophils # (Auto) 0.0 x10^3/uL (0.0-0.2) Sodium Level 141 mmol/L (136-145) Potassium Level 4.2 mmol/L (3.5-5.1) Chloride Level 104 mmol/L (98-107) Carbon Dioxide Level 27 mmol/L (21-32) Anion Gap 10 (6-14) Blood Urea Nitrogen 12 mg/dL (7-20) Creatinine 0.7 mg/dL (0.6-1.0) Estimated GFR (Cockcroft-Gault) 113.9 BUN/Creatinine Ratio 17 (6-20) Glucose Level 115 mg/dL (70-99) Calcium Level 8.9 mg/dL (8.5-10.1) Total Bilirubin 0.1 mg/dL (0.2-1.0) Aspartate Amino Transf (AST/SGOT) 49 U/L (15-37) Alanine Aminotransferase (ALT/SGPT) 107 U/L (14-59) Alkaline Phosphatase 70 U/L (46-116) Total Protein 7.2 g/dL (6.4-8.2) Albumin 3.4 g/dL (3.4-5.0) Albumin/Globulin Ratio 0.9 (1.0-1.7) Allergies: Coded Allergies: Penicillins (Verified Allergy, Intermediate, 02/06/17) ibuprofen (Verified Allergy, Intermediate, 02/06/17) latex (Verified Allergy, Intermediate, 02/06/17) oxycodone (Verified Allergy, Intermediate, Itching, 06/13/18) HEART RACING, PALPITATIONS, ITCHING acetaminophen (Verified Adverse Reaction, Intermediate, Itching, 10/25/16) HEART RACING, PALPITATIONS, ITCHING butorphanol tartrate (Verified Adverse Reaction, Intermediate, Anxiety, ) felt like she was burning up inside Medications: Current Medications Medications (Trade) Dose Ordered Sig/Wolfgang Route PRN Reason Start Time Stop Time Status Last Admin Dose Admin Pantoprazole Sodium (PROTONIX VIAL for IV PUSH) 40 mg DAILYAC IVP 06/12/18 20:45 06/13/18 11:20 DC 06/13/18 06:28 Imaging: Imaging: CT A/P Impression: 1. Again visualized is cystic appearing lesion in the upper abdomen. This measures roughly 6.3 x 4.2 x 6.4 cm. This thought to be without significant change in volume from previous study. Possibilities are chronic postoperative seroma versus mesenteric or enteric duplication cyst. 2. Right ovarian cyst measuring 4.1 cm. If there is concern for torsion, pelvic ultrasound could be performed. 3. Ventral hernia repair with mesh. No recurrent hernia is identified. Pelv US IMPRESSION: 1. Complicated right ovarian cyst which may represent a hemorrhagic cyst. Sonographic follow-up is suggested to exclude a neoplastic etiology. 2. Mild thickening of the central uterine echo complex superiorly. This may be physiologic. An endometrial polyp cannot be excluded. Again, sonographic follow- up is suggested. PE: GEN: NAD HEENT: Atraumatic, PERRL LUNGS: CTAB HEART: RRR ABD: NABS, some distention, tender to very light touch EXTREMITY: No edema SKIN: No rashes, no jaundice NEURO/PSYCH: A & O 3 A/P: A/P: Chronic abd pain Dysphagia, ?vomiting vs regurg/reflux S/p Harinder fundoplication H/o ventral hernia repair, cystic seroma w/ past IR drainage Constipation DUY - similar in 2013, but then normal Hgb after Elevated AST, ALT -- Defer pain control to primary. ?slipped wrap - EGD tomorrow afternoon w/ Dr. Medel Continue PPI. Check KUB re: constipation, adjust meds (increase Miralax and/or lactulose, try Dulcolax, consider Relistor, etc.) if indicated. Monitor labs and consider abd US. JONI WILSON Jun 13, 2018 12:37
[2018-06-13 15:00] VITALS: BP 131/60
--- NOTE | 2018-06-13 15:53 | PDOC ---
SUBJECTIVE Subjective Abdominal pain OBJECTIVE Objective 37yo female C/O abd pain, epigastric/hypogastric X approx one week- worsening Vital Signs Vital Signs Date Time Temp Pulse Resp B/P (MAP) Pulse Ox O2 Delivery O2 Flow Rate FiO2 06/13/18 15:00 97.7 94 18 131/60 (83) 100 Room Air 97.7 06/13/18 14:52 99 Room Air 06/13/18 12:40 99 Room Air 06/13/18 12:04 99 Room Air 06/13/18 10:46 98.6 97 16 104/56 (72) 99 Room Air 98.6 06/13/18 09:59 100 Room Air 06/13/18 08:42 100 Room Air 06/13/18 07:45 Room Air 06/13/18 07:05 97.5 85 16 109/67 (81) 100 Room Air 97.5 06/13/18 06:43 15 06/13/18 06:27 16 98 Room Air 06/13/18 04:25 16 98 Room Air 06/13/18 04:25 16 98 Room Air 06/13/18 03:28 15 98 Room Air 06/13/18 03:06 98.4 87 20 106/63 (77) 98 Room Air 98.4 06/13/18 01:38 16 99 Room Air 06/12/18 23:22 16 99 Room Air 06/12/18 23:06 97.6 94 20 125/71 (89) 99 Room Air 97.6 06/12/18 20:39 17 96 Room Air 06/12/18 19:10 Room Air 06/12/18 19:00 98.8 95 20 131/79 (96) 96 Room Air 98.8 06/12/18 18:32 Room Air 06/12/18 18:32 Room Air 06/12/18 16:36 98.8 88 18 111/69 (83) 99 Room Air 98.8 I & O Intake and Output 06/13/18 07:00 Intake Total 1000 ml Balance 1000 ml Intake Oral 1000 ml # Voids 3 ASSESSMENT/PLAN Assessment/Plan Abd pain S/P abd surgery with mesh in past. Fluid collection per [facility] for EGD 06/14 Rec: consider addition of MsO4(home med) if dose can be determined in combonation of oxycodone, alternatively, Fentanyl patch 50mcg q 72 hrs while inpatient( abuse potential with patch- do not rec. for OP status) COMMENT Lab Laboratory Tests Test 06/13/18 04:15 White Blood Count 5.9 x10^3/uL (4.0-11.0) Red Blood Count 3.42 x10^6/uL (3.50-5.40) Hemoglobin 9.3 g/dL (12.0-15.5) Hematocrit 27.6 % (36.0-47.0) Mean Corpuscular Volume 81 fL (79-100) Mean Corpuscular Hemoglobin 27 pg (25-35) Mean Corpuscular Hemoglobin Concent 34 g/dL (31-37) Red Cell Distribution Width 20.0 % (11.5-14.5) Platelet Count 280 x10^3/uL (140-400) Neutrophils (%) (Auto) 38 % (31-73) Lymphocytes (%) (Auto) 53 % (24-48) Monocytes (%) (Auto) 8 % (0-9) Eosinophils (%) (Auto) 1 % (0-3) Basophils (%) (Auto) 0 % (0-3) Neutrophils # (Auto) 2.2 x10^3uL (1.8-7.7) Lymphocytes # (Auto) 3.1 x10^3/uL (1.0-4.8) Monocytes # (Auto) 0.5 x10^3/uL (0.0-1.1) Eosinophils # (Auto) 0.1 x10^3/uL (0.0-0.7) Basophils # (Auto) 0.0 x10^3/uL (0.0-0.2) Sodium Level 141 mmol/L (136-145) Potassium Level 4.2 mmol/L (3.5-5.1) Chloride Level 104 mmol/L (98-107) Carbon Dioxide Level 27 mmol/L (21-32) Anion Gap 10 (6-14) Blood Urea Nitrogen 12 mg/dL (7-20) Creatinine 0.7 mg/dL (0.6-1.0) Estimated GFR (Cockcroft-Gault) 113.9 BUN/Creatinine Ratio 17 (6-20) Glucose Level 115 mg/dL (70-99) Calcium Level 8.9 mg/dL (8.5-10.1) Total Bilirubin 0.1 mg/dL (0.2-1.0) Aspartate Amino Transf (AST/SGOT) 49 U/L (15-37) Alanine Aminotransferase (ALT/SGPT) 107 U/L (14-59) Alkaline Phosphatase 70 U/L (46-116) Total Protein 7.2 g/dL (6.4-8.2) Albumin 3.4 g/dL (3.4-5.0) Albumin/Globulin Ratio 0.9 (1.0-1.7) SEDA HOU MD Jun 13, 2018 15:52
[2018-06-13] MEDS: oxyCODONE/APAP 10/325 1 TAB TABLET PO PRN ×2 (16:11→20:29)
--- NOTE | 2018-06-13 16:51 | RAD ---
GABBY, 06/13/2018: HISTORY: Constipation, bloating There is a moderate amount stool throughout the colon. No small bowel dilatation is seen. There is a moderate amount gas in the stomach. There are surgical clips in the upper pelvis. There are additional radiopacities likely related to a surgical mesh projected over the lower abdomen near the midline. There is no evidence organomegaly. IMPRESSION: Increased stool in the colon compatible with the given history of constipation. Electronically signed by: Sukhdev Manriquez MD (06/13/2018 4:48 PM) [facility]
[2018-06-13] MEDS ORDERED: BISACODYL 5 MG TABLET.DR. PO ONE (18:15)
[2018-06-13 19:00] VITALS: BP 118/80
[2018-06-13] MEDS: traZODone 100 MG TABLET. PO PRN (20:28)
[2018-06-13 23:00] VITALS: BP 125/72
[2018-06-14 03:00] VITALS: BP 109/61
[2018-06-14] MEDS: ONDANSETRON PF 4 MG/2 ML VIAL. IV PRN ×4 (03:36→22:19)
[2018-06-14] MEDS: MORPHINE SULFATE 4 MG/ML VIAL. IV PRN ×7 (03:37→22:19)
[2018-06-14] MEDS: diphenhydrAMINE HCL 25 MG CAPSULE PO PRN ×4 (03:39→21:40)
[2018-06-14] MEDS: PROMETHAZINE 12.5 MG TABLET. PO PRN ×3 (05:58→20:10)
[2018-06-14 06:32] LABS: HEMATOCRIT 28.6 % (36.0-47.0); HEMOGLOBIN 9.4 g/dL (12.0-15.5)
[2018-06-14 07:00] VITALS: BP 91/43
[2018-06-14] MEDS ORDERED: fentaNYL PF VIAL 100 MCG/2 ML VIAL IV PRN ×4 (07:00→13:45)
[2018-06-14] MEDS ORDERED: ONDANSETRON PF 4 MG/2 ML VIAL. IV PRN (07:00)
[2018-06-14] MEDS ORDERED: IV RINGERS,LACTATED 1000ML 1,000 ML IV SCH ×2 (07:00→13:44)
[2018-06-14] MEDS ORDERED: PROCHLORPERAZINE 10 MG/2 ML VIAL. IV PRN (07:00)
[2018-06-14] MEDS ORDERED: LIDOCAINE 1% PF 2 ML VIAL. ID PRN ×2 (07:00→13:45)
--- NOTE | 2018-06-14 08:22 | PDOC ---
SURGICAL PROGRESS NOTE Subjective complaints today of joint pain Vital Signs Vital Signs Date Time Temp Pulse Resp B/P (MAP) Pulse Ox O2 Delivery O2 Flow Rate FiO2 06/14/18 06:14 14 97 Room Air 06/14/18 03:00 97.5 94 109/61 (77) 97.5 I&O Intake and Output 06/14/18 07:00 Intake Total 1100 ml Balance 1100 ml Intake Oral 1100 ml # Voids 4 General: Alert, Oriented X3, Cooperative, No acute distress Abdomen: Soft, Other (mild ttp generalized) Labs Laboratory Tests Test 06/13/18 04:15 06/14/18 05:50 White Blood Count 5.9 x10^3/uL (4.0-11.0) Red Blood Count 3.42 x10^6/uL (3.50-5.40) Hemoglobin 9.3 g/dL (12.0-15.5) 9.4 g/dL (12.0-15.5) Hematocrit 27.6 % (36.0-47.0) 28.6 % (36.0-47.0) Mean Corpuscular Volume 81 fL (79-100) Mean Corpuscular Hemoglobin 27 pg (25-35) Mean Corpuscular Hemoglobin Concent 34 g/dL (31-37) 33 g/dL (31-37) Red Cell Distribution Width 20.0 % (11.5-14.5) Platelet Count 280 x10^3/uL (140-400) Neutrophils (%) (Auto) 38 % (31-73) Lymphocytes (%) (Auto) 53 % (24-48) Monocytes (%) (Auto) 8 % (0-9) Eosinophils (%) (Auto) 1 % (0-3) Basophils (%) (Auto) 0 % (0-3) Neutrophils # (Auto) 2.2 x10^3uL (1.8-7.7) Lymphocytes # (Auto) 3.1 x10^3/uL (1.0-4.8) Monocytes # (Auto) 0.5 x10^3/uL (0.0-1.1) Eosinophils # (Auto) 0.1 x10^3/uL (0.0-0.7) Basophils # (Auto) 0.0 x10^3/uL (0.0-0.2) Sodium Level 141 mmol/L (136-145) Potassium Level 4.2 mmol/L (3.5-5.1) Chloride Level 104 mmol/L (98-107) Carbon Dioxide Level 27 mmol/L (21-32) Anion Gap 10 (6-14) Blood Urea Nitrogen 12 mg/dL (7-20) Creatinine 0.7 mg/dL (0.6-1.0) Estimated GFR (Cockcroft-Gault) 113.9 BUN/Creatinine Ratio 17 (6-20) Glucose Level 115 mg/dL (70-99) Calcium Level 8.9 mg/dL (8.5-10.1) Total Bilirubin 0.1 mg/dL (0.2-1.0) Aspartate Amino Transf (AST/SGOT) 49 U/L (15-37) Alanine Aminotransferase (ALT/SGPT) 107 U/L (14-59) Alkaline Phosphatase 70 U/L (46-116) Total Protein 7.2 g/dL (6.4-8.2) Albumin 3.4 g/dL (3.4-5.0) Albumin/Globulin Ratio 0.9 (1.0-1.7) Laboratory Tests Test 06/14/18 05:50 Hemoglobin 9.4 g/dL (12.0-15.5) Hematocrit 28.6 % (36.0-47.0) Mean Corpuscular Hemoglobin Concent 33 g/dL (31-37) Problem List Problems Medical Problems: (1) Abdominal pain Status: Acute Assessment/Plan EGD today will review with DILCIA Saab APRN Jun 14, 2018 08:22
[2018-06-14] MEDS: PANTOPRAZOLE IV PUSH 40 MG VIAL. IVP SCH (08:32)
[2018-06-14] MEDS: oxyCODONE/APAP 10/325 1 TAB TABLET PO PRN ×4 (08:32→21:40)
--- NOTE | 2018-06-14 08:57 | PDOC ---
PROGRESS NOTES Chief Complaint Chief Complaint Intractable abdominal pain Abdominal wall cyst Ovarian cyst Transaminitis Menorrhagia History of Present Illness History of Present Illness Gen. surgery note reviewed-outpatient removal mesh sometime Abdominal pain continues Appreciate pain management note-recommend fentanyl patch here if needed but not as outpatient Recommend starting home regimen-I have her even more than just her home regimen She is hungry, for EGD later 1 PM Menorrhagia continues plan: Provera 10 by mouth twice a day-discussed with ORTHOPEDIC SHOE FITTER To follow-up with Dr. Carter 2-3 weeks EGD later Fentanyl patch if pain persists-so far she is just hungry and that is her focus now Normal saline while nothing by mouth Discussed with RN at bedside Vitals Vitals Vital Signs Date Time Temp Pulse Resp B/P (MAP) Pulse Ox O2 Delivery O2 Flow Rate FiO2 06/14/18 08:32 Room Air 06/14/18 07:00 98.4 88 18 91/43 (59) 99 98.4 Physical Exam General: Alert, Oriented X3, Cooperative, No acute distress Heart: Regular rate, Normal S1, Normal S2 Lungs: Clear Abdomen: Soft, Other (mild ttp generalized) Extremities: No clubbing, No cyanosis, No edema Skin: No rashes, No breakdown Labs LABS Laboratory Tests Test 06/14/18 05:50 Hemoglobin 9.4 g/dL (12.0-15.5) Hematocrit 28.6 % (36.0-47.0) Mean Corpuscular Hemoglobin Concent 33 g/dL (31-37) Review of Systems Review of Systems abd pain, menorrhagia, hungry Assessment and Plan Assessmemt and Plan Problems Medical Problems: (1) Abdominal pain Status: Acute Comment Review of Relevant I have reviewed the following items ruth (where applicable) has been applied. Labs Laboratory Tests Test 06/13/18 04:15 06/14/18 05:50 White Blood Count 5.9 x10^3/uL (4.0-11.0) Red Blood Count 3.42 x10^6/uL (3.50-5.40) Hemoglobin 9.3 g/dL (12.0-15.5) 9.4 g/dL (12.0-15.5) Hematocrit 27.6 % (36.0-47.0) 28.6 % (36.0-47.0) Mean Corpuscular Volume 81 fL (79-100) Mean Corpuscular Hemoglobin 27 pg (25-35) Mean Corpuscular Hemoglobin Concent 34 g/dL (31-37) 33 g/dL (31-37) Red Cell Distribution Width 20.0 % (11.5-14.5) Platelet Count 280 x10^3/uL (140-400) Neutrophils (%) (Auto) 38 % (31-73) Lymphocytes (%) (Auto) 53 % (24-48) Monocytes (%) (Auto) 8 % (0-9) Eosinophils (%) (Auto) 1 % (0-3) Basophils (%) (Auto) 0 % (0-3) Neutrophils # (Auto) 2.2 x10^3uL (1.8-7.7) Lymphocytes # (Auto) 3.1 x10^3/uL (1.0-4.8) Monocytes # (Auto) 0.5 x10^3/uL (0.0-1.1) Eosinophils # (Auto) 0.1 x10^3/uL (0.0-0.7) Basophils # (Auto) 0.0 x10^3/uL (0.0-0.2) Sodium Level 141 mmol/L (136-145) Potassium Level 4.2 mmol/L (3.5-5.1) Chloride Level 104 mmol/L (98-107) Carbon Dioxide Level 27 mmol/L (21-32) Anion Gap 10 (6-14) Blood Urea Nitrogen 12 mg/dL (7-20) Creatinine 0.7 mg/dL (0.6-1.0) Estimated GFR (Cockcroft-Gault) 113.9 BUN/Creatinine Ratio 17 (6-20) Glucose Level 115 mg/dL (70-99) Calcium Level 8.9 mg/dL (8.5-10.1) Total Bilirubin 0.1 mg/dL (0.2-1.0) Aspartate Amino Transf (AST/SGOT) 49 U/L (15-37) Alanine Aminotransferase (ALT/SGPT) 107 U/L (14-59) Alkaline Phosphatase 70 U/L (46-116) Total Protein 7.2 g/dL (6.4-8.2) Albumin 3.4 g/dL (3.4-5.0) Albumin/Globulin Ratio 0.9 (1.0-1.7) Laboratory Tests Test 06/14/18 05:50 Hemoglobin 9.4 g/dL (12.0-15.5) Hematocrit 28.6 % (36.0-47.0) Mean Corpuscular Hemoglobin Concent 33 g/dL (31-37) Medications Current Medications Morphine Sulfate (Morphine Sulfate) 4 mg 1X ONCE IV Last administered on at 14:55; Start 06/09/18 at 13:45; Stop 06/10/18 at 13:21; Status DC Ondansetron HCl (Zofran) 8 mg 1X ONCE IV Last administered on 06/09/18at 14:55 ; Start 06/09/18 at 13:45; Stop 06/09/18 at 13:46; Status DC Iohexol (Omnipaque 300 Mg/ml) 75 ml 1X ONCE IV Last administered on 06/09/18at 14:30; Start 06/09/18 at 14:30; Stop 06/09/18 at 14:31; Status DC Info (CONTRAST GIVEN -- Rx MONITORING) 1 each PRN DAILY PRN MC SEE COMMENTS; Start 06/09/18 at 14:30; Stop 06/11/18 at 14:29; Status DC Diphenhydramine HCl (Benadryl) 50 mg 1X ONCE PO Last administered on at 15:33; Start 06/09/18 at 15:15; Stop 06/09/18 at 15:16; Status DC Morphine Sulfate (Morphine Sulfate) 4 mg 1X ONCE IV Last administered on at 15:54; Start 06/09/18 at 15:45; Stop 06/10/18 at 13:21; Status DC Morphine Sulfate (Morphine Sulfate) 4 mg PRN Q2HR PRN IV PAIN Last administered on 06/10/18at 13:08; Start 06/09/18 at 16:30; Stop 06/10/18 at 13:21 ; Status DC Ondansetron HCl (Zofran) 8 mg 1X ONCE IV Last administered on 06/09/18at 17:01 ; Start 06/09/18 at 16:45; Stop 06/09/18 at 16:47; Status DC Diphenhydramine HCl (Benadryl) 25 mg PRN Q6HRS PRN PO ITCHING Last administered on 06/14/18 03:39; Start 06/09/18 at 23:15 Ondansetron HCl (Zofran) 4 mg PRN Q6HRS PRN IV NAUSEA/VOMITING Last administered on 06/14/18 03:36; Start 06/09/18 at 23:15 Trazodone HCl (Desyrel) 100 mg PRN QHS PRN PO INSOMNIA Last administered on 20:28; Start 06/09/18 at 23:15 Acetaminophen/ Hydrocodone Bitart (Lortab 5/325) 1 tab PRN Q6HRS PRN PO PAIN Last administered on 06/13/18 09:59; Start 06/10/18 at 00:15; Stop 06/13/18 at 11:20; Status DC Influenza Virus Vaccine (Afluria Trivalent [id number] Syringe) 0.5 ml ONCE ONCE VAX IM Last administered on 06/10/18 10:36; Start 06/10/18 at 09:00; Stop 06/10/18 at 09:01; Status DC Hydromorphone HCl (Dilaudid) 0.5 mg PRN Q4HRS PRN IV pain Last administered on 06/10/18 15:35; Start 06/10/18 at 13:30; Stop 06/10/18 at 22:50; Status DC Morphine Sulfate (Morphine Sulfate) 4 mg PRN Q2HR PRN IV PAIN Last administered on 06/14/18 08:31; Start 06/10/18 at 23:00 Senna/Docusate Sodium (Senna Plus) 2 tab PRN BID PRN PO CONSTIPATION Last administered on 06/12/18 07:46; Start 06/11/18 at 22:15 Lactulose (Lactulose) 20 gm DAILY PO Last administered on 06/13/18 08:37; Start 06/12/18 at 09:00 Psyllium Hydrophilic Mucilloid (Metamucil Fiber Packet) 1 pkt DAILY PO Last administered on 06/13/18 08:36; Start 06/11/18 at 22:15 Polyethylene Glycol (miraLAX PACKET) 17 gm DAILY PO Last administered on 08:37; Start 06/11/18 at 22:30; Stop 06/13/18 at 17:48; Status DC Al Hydroxide/Mg Hydroxide (Mylanta Plus Xs) 30 ml PRN Q2HR PRN PO HEARTBURN / GAS; Start 06/12/18 at 10:30 Promethazine HCl (Phenergan) 12.5 mg PRN Q6HRS PRN PO NAUSEA/VOMITING Last administered on 06/14/18at 05:58; Start 06/12/18 at 10:30 Pantoprazole Sodium (PROTONIX VIAL for IV PUSH) 40 mg DAILYAC IVP ; Start at 07:30; Stop 06/13/18 at 07:30; Status DC Pantoprazole Sodium (PROTONIX VIAL for IV PUSH) 40 mg DAILYAC IVP Last administered on 06/13/18at 06:28; Start 06/12/18 at 20:45; Stop 06/13/18 at 11:20 ; Status DC Oxycodone/ Acetaminophen (Percocet 10/325) 1 tab PRN Q4HRS PRN PO PAIN Last administered on 06/14/18at 08:32; Start 06/13/18 at 11:30 Pantoprazole Sodium (PROTONIX VIAL for IV PUSH) 40 mg DAILYAC IVP Last administered on 06/14/18at 08:32; Start 06/14/18 at 07:30 Ondansetron HCl (Zofran) 4 mg PRN Q6HRS PRN IV NAUSEA/VOMITING; Start 06/14/18 at 07:00; Stop 06/14/18 at 23:00 Fentanyl Citrate (Fentanyl 2ml Vial) 25 mcg PRN Q5MIN PRN IV MILD PAIN; Start 06/14/18 at 07:00; Stop 06/14/18 at 23:00 Fentanyl Citrate (Fentanyl 2ml Vial) 50 mcg PRN Q5MIN PRN IV MODERATE TO SEVERE PAIN; Start 06/14/18 at 07:00; Stop 06/14/18 at 23:00 Ringer's Solution 1,000 ml @ 30 mls/hr Q24H IV ; Start 06/14/18 at 07:00; Stop 06/14/18 at 18:59 Lidocaine HCl (Xylocaine-Mpf 1% 2ml Vial) 2 ml PRN 1X PRN ID IV START; Start 06/14/18 at 07:00; Stop 06/14/18 at 23:00 Prochlorperazine Edisylate (Compazine) 5 mg PACU PRN PRN IV NAUSEA, MRX1; Start 06/14/18 at 07:00; Stop 06/14/18 at 23:00 Polyethylene Glycol (miraLAX PACKET) 17 gm BID PO Last administered on at 19:46; Start 06/13/18 at 21:00 Bisacodyl (Dulcolax Tab) 10 mg 1X ONCE PO Last administered on 06/13/18at 19:46 ; Start 06/13/18 at 18:15; Stop 06/13/18 at 18:16; Status DC Active Scripts Active Ambien (Zolpidem Tartrate) 10 Mg Tablet 1 Tab PO QHS Buckner 5-325 Tablet (Acetaminophen/Hydrocodone Bitart) 1 Each Tablet 1-2 Tab PO Q4-6HRS Vitals/I & O Vital Sign - Last 24 Hours 06/13/18 06/13/18 06/13/18 06/13/18 09:59 10:46 12:04 14:52 Temp 98.6 98.6 Pulse 97 Resp 16 B/P (MAP) 104/56 (72) Pulse Ox 100 99 99 99 O2 Delivery Room Air Room Air Room Air Room Air 06/13/18 06/13/18 06/13/18 06/13/18 15:00 16:11 17:45 19:00 Temp 97.7 97.5 97.7 97.5 Pulse 94 98 Resp 18 18 B/P (MAP) 131/60 (83) 118/80 (93) Pulse Ox 100 100 100 99 O2 Delivery Room Air Room Air Room Air Room Air 06/13/18 06/13/18 06/13/18 06/13/18 19:05 19:47 20:29 21:25 Resp 16 15 16 Pulse Ox 100 100 100 O2 Delivery Room Air Room Air Room Air Room Air 06/13/18 06/13/18 06/14/18 06/14/18 22:27 23:00 03:00 03:37 Temp 97.6 97.5 97.6 97.5 Pulse 99 94 Resp 15 18 18 16 B/P (MAP) 125/72 (89) 109/61 (77) Pulse Ox 100 99 97 97 O2 Delivery Room Air Room Air Room Air Room Air 11/01/2406/14/18 06/14/18 06/14/18 05:58 06:14 07:00 08:31 Temp 98.4 98.4 Pulse 88 Resp 18 B/P (MAP) 91/43 (59) Pulse Ox 97 97 99 O2 Delivery Room Air Room Air Room Air Room Air 06/14/18 08:32 O2 Delivery Room Air Intake and Output 06/13/18 06/13/18 06/14/18 15:00 23:00 07:00 Intake Total 600 ml 500 ml Balance 600 ml 500 ml ANNA BLAS MD Jun 14, 2018 08:57
[2018-06-14] MEDS: PSYLLIUM HUSK (SUGAR FREE) 1 PKT PACKET PO SCH (09:00)
[2018-06-14] MEDS: POLYETHYLENE GLYCOL 3350 17 GM PACKET. PO SCH ×2 (09:00→20:01)
[2018-06-14] MEDS: LACTULOSE 20 GM/30 ML SOLUTION. PO SCH (09:00)
[2018-06-14] MEDS ORDERED: IV 1/2 NORMAL SALINE 1,000 ML IV ONE (09:00)
[2018-06-14 11:00] VITALS: BP 105/68
[2018-06-14] MEDS ORDERED: MIDAZOLAM HCL/PF 2 MG/2 ML VIAL. IV PRN (13:45)
[2018-06-14] MEDS ORDERED: PROPOFOL 20 ML IV ONE (14:38)
--- NOTE | 2018-06-14 14:49 | PDOC4 ---
PROCEDURE Procedure EGD dysphagia, vomiting anesthesia with propofol Findings- NORMAL esophagus- intact fundoplication wrap, retained bile in stomach with antral gastritis, normal duodenum.- Antrum bx, 58 fr quintero dilation CECILIO COOK MD Jun 14, 2018 14:49
[2018-06-14 15:00] VITALS: BP 116/54
[2018-06-14 19:00] VITALS: BP 118/64
[2018-06-14] MEDS: SUCRALFATE 1 GM TABLET. PO SCH (20:02)
[2018-06-14] MEDS: traZODone 100 MG TABLET. PO PRN (21:39)
[2018-06-14 23:00] VITALS: BP 127/81
[2018-06-15] MEDS: MORPHINE SULFATE 4 MG/ML VIAL. IV PRN ×4 (00:28→08:35)
[2018-06-15] MEDS: oxyCODONE/APAP 10/325 1 TAB TABLET PO PRN ×3 (02:00→14:23)
[2018-06-15] MEDS: PROMETHAZINE 12.5 MG TABLET. PO PRN ×2 (02:56→09:30)
[2018-06-15 03:00] VITALS: BP 98/46
[2018-06-15] MEDS: PANTOPRAZOLE IV PUSH 40 MG VIAL. IVP SCH (05:38)
[2018-06-15] MEDS: ONDANSETRON PF 4 MG/2 ML VIAL. IV PRN ×2 (05:38→08:35)
[2018-06-15] MEDS: diphenhydrAMINE HCL 25 MG CAPSULE PO PRN ×2 (05:38→11:38)
[2018-06-15 07:00] VITALS: BP 119/75
--- NOTE | 2018-06-15 08:13 | PDOC ---
SURGICAL PROGRESS NOTE Subjective Pt difficult to awaken, report of EGD noted Vital Signs Vital Signs Date Time Temp Pulse Resp B/P (MAP) Pulse Ox O2 Delivery O2 Flow Rate FiO2 06/15/18 05:38 18 98 Room Air 06/15/18 03:00 97.5 76 98/46 (63) 97.5 I&O Intake and Output 06/15/18 07:00 Intake Total 1200 ml Balance 1200 ml Intake Oral 500 ml IV Total 700 ml # Voids 6 General: No acute distress Labs Laboratory Tests Test 06/14/18 05:50 Hemoglobin 9.4 g/dL (12.0-15.5) Hematocrit 28.6 % (36.0-47.0) Mean Corpuscular Hemoglobin Concent 33 g/dL (31-37) Problem List Problems Medical Problems: (1) Abdominal pain Status: Acute Assessment/Plan abd pain, multiple complaints cont w/u of joint pain cont w/u per Gi, may be a component of gastroparesis elective evaluation of chronic abd seroma related to mesh MELIZA CUNNINGHAM MD Jun 15, 2018 08:13
[2018-06-15] MEDS: PSYLLIUM HUSK (SUGAR FREE) 1 PKT PACKET PO SCH (09:27)
[2018-06-15] MEDS: POLYETHYLENE GLYCOL 3350 17 GM PACKET. PO SCH (09:27)
[2018-06-15] MEDS: SUCRALFATE 1 GM TABLET. PO SCH (09:30)
[2018-06-15] MEDS: LACTULOSE 20 GM/30 ML SOLUTION. PO SCH (09:31)
[2018-06-15] MEDS: SENNOSIDES/DOCUSATE 8.6/50MG TABLET. PO PRN (09:31)
[2018-06-15] MEDS ORDERED: SUCR1TAB35 PO (10:47)
[2018-06-15] MEDS ORDERED: ZOLP10TA PO (10:47)
[2018-06-15] MEDS ORDERED: OXYC-411 PO (10:47)
[2018-06-15] MEDS ORDERED: PANT20TA2 PO (10:47)
[2018-06-15] MEDS ORDERED: MEDR2.5T28 PO (10:47)
--- NOTE | 2018-06-15 10:51 | PDOC3 ---
Discharge Summary Visit Information Date of Admission: Jun 11, 2018 Date of Discharge: Jun 15, 2018 Admitting Diagnosis Comment: Intractable abdominal pain Abdominal wall cyst Ovarian cyst Transaminitis Menorrhagia narcotic induced constipation Final Diagnosis Problems Medical Problems: (1) Abdominal pain Status: Acute Brief Hospital Course Allergies Allergies Coded Allergies Type Severity Reaction Last Updated Verified Penicillins Allergy Intermediate 06/14/18 Yes ibuprofen Allergy Intermediate 06/14/18 Yes latex Allergy Intermediate 06/14/18 Yes oxycodone Allergy Intermediate Itching 06/14/18 Yes acetaminophen Adverse Reaction Intermediate Itching 06/14/18 Yes butorphanol tartrate Adverse Reaction Intermediate Anxiety 06/14/18 Yes Vital Signs Vital Signs Date Time Temp Pulse Resp B/P (MAP) Pulse Ox O2 Delivery O2 Flow Rate FiO2 06/15/18 09:36 Room Air 06/15/18 07:00 98.3 88 20 119/75 (90) 100 98.3 Lab Results Laboratory Tests Test 06/14/18 05:50 Hemoglobin 9.4 g/dL (12.0-15.5) Hematocrit 28.6 % (36.0-47.0) Mean Corpuscular Hemoglobin Concent 33 g/dL (31-37) Brief Hospital Course Ms. Huerta is a 37 old [place] female who has been on chronic narcotics, comes in because of chronic abdominal pain. She has some ovarian cyst 4 cm, menorrhagia, and possibly a ventral hernia? some mesh that was done by GS. She stayed couple days because we had to involve pain mx , GS suggested to consider outpatient mesh removal. She had menorrhagia and had to consult OB/ PLASTIC SURGERY ASSISTANT which suggested Provera 10 by mouth twice a day. Follow-up 2-3 weeks with OB /PLASTIC SURGERY ASSISTANT. She had some transaminitis which is rather minor. She had an EGD where dilatation was done and possibly an ulcer? As subsequently she was started on Carafate and PPI. There is no EGD results yet that I could find. I have written all meds she was started her and ALL home meds as she is poorly compliant and claims has no pills TIME 40 mins Consults; GS, GI. pain px Proc: EGD with diltn Discharge Information Condition at Discharge: Improved, Stable Disposition/Orders: D/C to Home Scheduled Hydrocodone/Apap 5-325 ([place] 5-325 Tablet) 1 Each Tablet, 1-2 TAB PO Q4-6HRS, # 42 Prescribed by: GONSALO WOOTEN on 05/19/17 1109 Medroxyprogesterone Acetate (Medroxyprogesterone Acetate) 2.5 Mg Tablet, 10 MG PO BID for menorrhagia, #20 Prescribed by: ANNA BLAS on 06/15/18 1047 Pantoprazole Sodium (Protonix) 20 Mg Tablet.dr, 40 MG PO DAILY for daily for 60 Days, #120 Prescribed by: ANNA LBAS on 06/15/18 1047 Sucralfate (Carafate) 1 Gm Tablet, 1 GM PO BID for GI MDD 1, #60 Prescribed by: ANNA BLAS on 06/15/18 1047 Zolpidem Tartrate (Ambien) 10 Mg Tablet, 1 TAB PO QHS for [id number] MDD 1, #10 Ref 1 Prescribed by: ANNA BLAS on 06/15/18 1047 Scheduled PRN Oxycodone Hcl/Acetaminophen (Oxycodone-Acetaminophen 10-325) 1 Each Tablet, 1 TAB PO PRN Q4HRS PRN for PAIN, #20 Prescribed by: ANNA BLAS on 06/15/18 1047 ANNA BLAS MD Jun 15, 2018 10:51
[2018-06-15 11:00] VITALS: BP 110/74
--- NOTE | 2018-06-15 11:00 | PDOC ---
Subjective: Subjective: Swallowing better, now has some sinus congestion, still has abd pain, hasn't stooled. Objective: Vital Signs: Vital Signs Date Time Temp Pulse Resp B/P (MAP) Pulse Ox O2 Delivery O2 Flow Rate FiO2 06/15/18 09:36 Room Air 06/15/18 07:00 98.3 88 20 119/75 (90) 100 98.3 Imaging: EGD 06/14 Findings- NORMAL esophagus- intact fundoplication wrap, retained bile in stomach with antral gastritis, normal duodenum.- Antrum bx, 58 fr quintero dilation PE: GEN: NAD LUNGS: CTAB HEART: RRR ABD: NABS, S/ND, tender to light touch NEURO/PSYCH: A & O 3 A/P: Chronic abd pain, h/o ventral hernia repair w/ seroma Dysphagia - resolved, s/p dilation S/p Harinder fundoplication - intact Bile gastritis - on Carafate Constipation DUY -- Continue Carafate, can stop IV PPI. Can try Amitiza for constipation - has other meds ordered as well. Try Bentyl for abd pain. DC per primary. JONI WILSON Jun 15, 2018 11:00
[2018-06-15] MEDS ORDERED: MAGNESIUM HYDROXIDE 2,400 MG/30 ML ORAL.SUSP. PO ONE (11:30)
[2018-06-15] MEDS ORDERED: DOCUSATE SODIUM 283 MG/5 ML ENEMA. PR ONE (11:30)
[2018-06-15] MEDS ORDERED: POLYETHYLENE GLYCOL 3350 17 GM PACKET. PO ONE (11:30)
[2018-06-15] MEDS ORDERED: DICYCLOMINE HCL 10 MG CAPSULE PO SCH (13:00)
[2018-06-15 15:00] VITALS: BP 127/82
--- NOTE | 2018-06-15 16:12 | PATHOLOGY ---
[facility] Accession Number: [id number] . 01 Material submitted: . ANTRUM BIOPSY . 01 Clinical history: . Dysphagia . 02 Diagnosis: Gastric biopsies, antrum: - Active chronic gastritis, moderate, with Helicobacter pylori organisms identified. . (JPM:vjm;06/15/2018) AGA/06/15/2018 . 02 Comment: Sections of the gastric antral biopsy show moderate active chronic inflammation. A properly controlled immunoperoxidase stain for Helicobacter reveals focal Helicobacter organisms. There is no evidence of malignancy. . (JPM:vjm;06/15/2018) . . Special stain performed: Immunoperoxidase stain for Helicobacter. . 02 Electronically signed: . Eric Cook MD, Pathologist NPI- [id number] . 01 Gross description: . Received in formalin labeled "Bradley, Quauisha, antrum BX, gastritis," are 2 segments of camarena soft tissue measuring 0.9 x 0.2 x 0.2 cm in aggregate dimensions and ranging from 0.4 to 0.5 cm in maximum dimension. The specimen is submitted entirely in cassette A1. (TSD; 06/14/2018) TOB/TOB . 02 Pathologist provided ICD-10: K29.50, B96.81 . 02 CPT . 947553, B00840 Specimen Comment: A courtesy copy of this report has been sent to Specimen Comment: [phone], , . Specimen Comment: Report sent to ,DR MARTINEZ / DR DWYER Specimen Comment: A duplicate report has been generated due to demographic updates. Performed at: [address], [place], [place] [id number] MD Dawson Nicholson MD Phone: [phone] Performed at: [address] [id number] MD Eric Cook MD Phone: [phone]
[2018-06-15] MEDS ORDERED: LUBIPROSTONE 8 MCG CAPSULE PO SCH (17:00)
== END 2018-06-15 17:48 | disposition home or self-care (01) | DRG 392 ==
LOC: ER 12:27 → ED HOLD 16:17 → 5 NORTH 22:13 → OBSVTOIN 06-11 13:42
PROVIDERS: ADMIT Internal Medicine; ATTEND Internal Medicine
PROC: 0DB78ZX Excision of Stomach, Pylorus, Via Natural or Artificial Opening Endoscopic, Diagnostic (ICD-10-PCS; principal; 2018-06-14 14:30)
PROC: 0D758ZZ Dilation of Esophagus, Via Natural or Artificial Opening Endoscopic (ICD-10-PCS; 2018-06-14 14:30)
DX: K29.60 Other gastritis without bleeding (principal); K21.9 Gastro-esophageal reflux disease without esophagitis; K43.9 Ventral hernia without obstruction or gangrene; N83.201 Unspecified ovarian cyst, right side; R74.0 Nonspecific elevation of levels of transaminase and lactic acid dehydrogenase [LDH]; F17.210 Nicotine dependence, cigarettes, uncomplicated; J45.909 Unspecified asthma, uncomplicated; F43.10 Post-traumatic stress disorder, unspecified; E03.9 Hypothyroidism, unspecified; G89.29 Other chronic pain; N92.0 Excessive and frequent menstruation with regular cycle; D64.9 Anemia, unspecified; M19.90 Unspecified osteoarthritis, unspecified site; K59.03 Drug induced constipation; T40.605A Adverse effect of unspecified narcotics, initial encounter; Z88.0 Allergy status to penicillin; Z88.8 Allergy status to other drugs, medicaments and biological substances; Z88.6 Allergy status to analgesic agent; Z91.040 Latex allergy status; Y92.89 Other specified places as the place of occurrence of the external cause; Z79.891 Long term (current) use of opiate analgesic; Z91.19 Patient's noncompliance with other medical treatment and regimen; Z90.49 Acquired absence of other specified parts of digestive tract
CPT/HCPCS: 36415; 43450; 74018; 74177; 76830; 76856; 80053; 81001; 81025; 82728; 83540; 83550; 83690; 84443; 85014; 85018; 85025; 88305; 88342; 90471; 90756; 96374; 96376; 99406; C9113; G0378; G0379; J1170; J2270; J2405; J2704; J7120; Q0163; Q0169; Q9967; 99285-25; Q2035

== ENCOUNTER 2020-11-09 09:30 | Emergency (ER) | payer MEDICAID ==
[~2020-11-09] VITALS: Ht 160 cm; Wt 63.0 kg
[~2020-11-09 09:30] MED LIST changes: -CLIN150C14 PO; +CLIN150C15 PO; +FLUC150T PO; +HYDR-3164 PO; -HYDR-971 PO; +MEDR2.5T28 PO; +METR500T PO; -OXYC-323 PO; +OXYC1TAB15 PO; +OXYC1TAB20 PO; +PANT20TA2 PO; +QUET25TA5 PO; +SUCR1TAB35 PO
[2020-11-09] MEDS ORDERED: IV NORMAL SALINE 1000ML BAG 1,000 ML IV ONE ×2 (10:30→12:15)
[2020-11-09] MEDS ORDERED: fentaNYL PF VIAL 100 MCG/2 ML VIAL IM ONE (10:30)
[2020-11-09] MEDS ORDERED: DEXAMETHASONE SOD PHOS 4 MG/ML VIAL IVP ONE (10:30)
[2020-11-09] MEDS ORDERED: ONDANSETRON PF 4 MG/2 ML VIAL. IVP ONE (10:30)
[2020-11-09] MEDS ORDERED: fentaNYL PF VIAL 100 MCG/2 ML VIAL IV ONE ×2 (10:45→12:45)
[2020-11-09 11:09] LABS: BILIRUBIN,URINE NEGATIVE (NEG); CLARITY,URINE CLEAR; COLOR,URINE YELLOW; NITRITE,URINE NEGATIVE (NEG); PROTEIN,URINE NEGATIVE (NEG-TRACE); UROBILINOGEN,URINE 0.2 mg/dL (0.2 mg/dL)
[2020-11-09 11:26] LABS: RBC,URINE 0 /HPF (0-2)
[2020-11-09 11:27] LABS: BACTERIA,URINE MANY /HPF (0-FEW)
[2020-11-09 11:37] LABS: BASO % 0 % (0-3); EOS # 0.2 x10^3/uL (0.0-0.7); EOS % 2 % (0-3); HEMATOCRIT 39.7 % (36.0-47.0); HEMOGLOBIN 13.4 g/dL (12.0-15.5); LYMPH # 1.6 x10^3/uL (1.0-4.8); LYMPH % 21 % (24-48); MEAN CORPUSCULAR HEMOGLOBIN 30 pg (25-35); MEAN CORPUSCULAR HGB CONC 34 g/dL (31-37); MEAN CORPUSCULAR VOLUME 89 fL (79-100); MONO # 0.4 x10^3/uL (0.0-1.1); MONO % 5 % (0-9); NEUT # 5.7 x10^3/uL (1.8-7.7); NEUT % 72 % (31-73); PLATELET COUNT 285 x10^3/uL (140-400); RED BLOOD COUNT 4.47 x10^6/uL (3.50-5.40); RED CELL DISTRIBUTION WIDTH 12.5 % (11.5-14.5); WHITE BLOOD COUNT 7.9 x10^3/uL (4.0-11.0)
[2020-11-09 11:42] LABS: CALCIUM 8.9 mg/dL (8.5-10.1); CREATININE 0.6 mg/dL (0.6-1.0); GFR 134.7
[2020-11-09] MEDS ORDERED: CONTRAST GIVEN. MC PRN (11:45)
[2020-11-09] MEDS ORDERED: IOHEXOL 300 MG/ML 100ML VIAL. IV ONE (11:45)
[2020-11-09 11:49] LABS: ALBUMIN 3.8 g/dL (3.4-5.0); TOTAL BILIRUBIN 0.5 mg/dL (0.2-1.0); TOTAL PROTEIN 7.6 g/dL (6.4-8.2)
[2020-11-09] MEDS ORDERED: MORPHINE SULFATE 4 MG/ML VIAL. IV ONE (12:00)
[2020-11-09 12:01] LABS: FECAL OB PT NEGATIVE (NEG)
--- NOTE | 2020-11-09 12:25 | RAD ---
CT chest abdomen and pelvis with contrast: History: Cough and left flank pain and nausea and vomiting Axial helical images of the chest abdomen and pelvis were obtained after the administration of 75 cc IV Omni 300 contrast. Comparison: February 03, 2019 CT OF THE CHEST WITH IV CONTRAST: There is no mediastinal lymphadenopathy or hematoma. Lymphadenopathy: no Thoracic aorta: normal Lungs and pleural margins: clear Impression: No acute findings. End Impression CT OF THE ABDOMEN AND PELVIS WITH IV CONTRAST: There is a mesh placement anteriorly from prior hernia repair. The colon is collapsed and not well evaluated. Liver: Unremarkable Spleen: Unremarkable Pancreas: Unremarkable Adrenal Glands: Unremarkable Kidneys: Unremarkable Evaluation of stomach and bowel is limited without oral contrast. There is a 2.3 cm nodule in the lower pole of the left lobe of thyroid. Lymphadenopathy: no. Free fluid: no. Free air: no. The bladder appears normal. Impression: No acute findings. Stable appearance of the chest abdomen and pelvis. End impression PQRS Compliance Statement: One or more of the following individualized dose reduction techniques were utilized for this examinat ion: 1. Automated exposure control 2. Adjustment of the mA and/or kV according to patient size 3. Use of iterative reconstruction technique Electronically signed by: Nagi Stevenson III, MD (11/09/2020 12:23 PM) [facility]
--- NOTE | 2020-11-09 12:33 | PHYS DOC ---
Past Medical History Past Medical History: Arthritis, Asthma, Kidney Infection, UTI, Other Additional Past Medical Histor: RA,FLUID ON KNEE,E COLI/UTI Past Surgical History: Appendectomy, Cholecystectomy, , Other Additional Past Surgical Histo: hiatal hernia/TAYA FUNDIPLICATION,TOOTH EXTR ACTION, ABD MESH/HERNIA Smoking Status: Current Every Day Smoker Alcohol Use: None Drug Use: None General Adult EDM: Chief Complaint: NAUSEA/VOMITING/DIARRHEA HPI: HPI: Patient is a 39 year old [f__sex] who presents with [] Review of Systems: Review of Systems: Constitutional: Denies fever or chills. [] Eyes: Denies change in visual acuity. [] HENT: Denies nasal congestion or sore throat. [] Respiratory: Denies cough or shortness of breath. [] Cardiovascular: Denies chest pain or edema. [] GI: Denies abdominal pain, nausea, vomiting, bloody stools or diarrhea. [] : Denies dysuria. [] Musculoskeletal: Denies back pain or joint pain. [] Integument: Denies rash. [] Neurologic: Denies headache, focal weakness or sensory changes. [] Endocrine: Denies polyuria or polydipsia. [] Lymphatic: Denies swollen glands. [] Psychiatric: Denies depression or anxiety. [] Current Medications: Current Medications Medications (Trade) Dose Ordered Sig/Wolfgang Start Time Stop Time Status Last Admin Dose Admin Dexamethasone Sodium Phosphate (Decadron) 10 mg 1X ONCE 11/09/20 10:30 11/09/20 10:33 DC 11/09/20 11:38 10 MG Fentanyl Citrate (Fentanyl 2ml Vial) 50 mcg 1X ONCE 11/09/20 10:45 11/09/20 10:46 DC 11/09/20 11:36 50 MCG Info (CONTRAST GIVEN -- Rx MONITORING) 1 each PRN DAILY PRN 11/09/20 11:45 11/11/20 11:44 Iohexol (Omnipaque 300 Mg/ml) 75 ml 1X ONCE 11/09/20 11:45 11/09/20 11:46 DC 11/09/20 11:58 75 ML Morphine Sulfate (Morphine Sulfate) 4 mg 1X ONCE 11/09/20 12:00 11/09/20 12:01 DC 11/09/20 12:11 4 MG Ondansetron HCl (Zofran) 4 mg 1X ONCE 11/09/20 10:30 11/09/20 10:33 DC 11/09/20 11:37 4 MG Sodium Chloride 1,000 ml @ 1,000 mls/hr 1X ONCE 11/09/20 12:15 11/09/20 13:14 Allergies: Allergies: Allergies Coded Allergies Type Severity Reaction Last Updated Verified Penicillins Allergy Intermediate 06/14/18 Yes ibuprofen Allergy Intermediate 06/14/18 Yes latex Allergy Intermediate 06/14/18 Yes sulfamethoxazole Allergy Unknown 02/02/19 Yes trimethoprim Allergy Unknown 02/02/19 Yes butorphanol tartrate Adverse Reaction Intermediate Anxiety 06/14/18 Yes Physical Exam: PE: Constitutional: Well developed, well nourished, no acute distress, non-toxic appearance. [] HENT: Normocephalic, atraumatic, bilateral external ears normal, oropharynx moist, no oral exudates, nose normal. [] Eyes: PERRLA, EOMI, conjunctiva normal, no discharge. [] Neck: Normal range of motion, no tenderness, supple, no stridor. [] Cardiovascular:Heart rate regular rhythm, no murmur [] Lungs & Thorax: Bilateral breath sounds clear to auscultation [] Abdomen: Bowel sounds normal, soft, no tenderness, no masses, no pulsatile masses. [] Skin: Warm, dry, no erythema, no rash. [] Back: No tenderness, no CVA tenderness. [] Extremities: No tenderness, no cyanosis, no clubbing, ROM intact, no edema. [] Neurologic: Alert and oriented X 3, normal motor function, normal sensory function, no focal deficits noted. [] Psychologic: Affect normal, judgement normal, mood normal. [] Current Patient Data: Labs: Laboratory Tests Test 11/09/20 10:40 11/09/20 10:45 11/09/20 10:50 11/09/20 10:56 Urine Collection Type Unknown Urine Color Yellow Urine Clarity Clear Urine pH 7.0 (<5.0-8.0) Urine Specific [place] 1.025 (1.000-1.030) Urine Protein Negative mg/dL (NEG-TRACE) Urine Glucose (UA) Negative mg/dL (NEG) Urine Ketones (Stick) Trace mg/dL (NEG) Urine Blood Negative (NEG) Urine Nitrite Negative (NEG) Urine Bilirubin Negative (NEG) Urine Urobilinogen Dipstick 0.2 mg/dL (0.2 mg/dL) Urine Leukocyte Esterase Moderate (NEG) Urine RBC 0 /HPF (0-2) Urine WBC 11-20 /HPF (0-4) Urine Squamous Epithelial Cells Many /LPF Urine Bacteria Many /HPF (0-FEW) Urine Mucus Marked /LPF Group A Streptococcus Rapid Negative (NEGATIVE) Stool Occult Blood Negative (NEG) POC Urine HCG, Qualitative Hcg negative (Negative) Test 11/09/20 11:15 11/09/20 11:30 White Blood Count 7.9 x10^3/uL (4.0-11.0) Red Blood Count 4.47 x10^6/uL (3.50-5.40) Hemoglobin 13.4 g/dL (12.0-15.5) Hematocrit 39.7 % (36.0-47.0) Mean Corpuscular Volume 89 fL (79-100) Mean Corpuscular Hemoglobin 30 pg (25-35) Mean Corpuscular Hemoglobin Concent 34 g/dL (31-37) Red Cell Distribution Width 12.5 % (11.5-14.5) Platelet Count 285 x10^3/uL (140-400) Neutrophils (%) (Auto) 72 % (31-73) Lymphocytes (%) (Auto) 21 % (24-48) L Monocytes (%) (Auto) 5 % (0-9) Eosinophils (%) (Auto) 2 % (0-3) Basophils (%) (Auto) 0 % (0-3) Neutrophils # (Auto) 5.7 x10^3/uL (1.8-7.7) Lymphocytes # (Auto) 1.6 x10^3/uL (1.0-4.8) Monocytes # (Auto) 0.4 x10^3/uL (0.0-1.1) Eosinophils # (Auto) 0.2 x10^3/uL (0.0-0.7) Basophils # (Auto) 0.0 x10^3/uL (0.0-0.2) Sodium Level 143 mmol/L (136-145) Potassium Level 4.0 mmol/L (3.5-5.1) Chloride Level 107 mmol/L (98-107) Carbon Dioxide Level 22 mmol/L (21-32) Anion Gap 14 (6-14) Blood Urea Nitrogen 8 mg/dL (7-20) Creatinine 0.6 mg/dL (0.6-1.0) Estimated GFR (Cockcroft-Gault) 134.7 BUN/Creatinine Ratio 13 (6-20) Glucose Level 84 mg/dL (70-99) Calcium Level 8.9 mg/dL (8.5-10.1) Magnesium Level 2.0 mg/dL (1.8-2.4) Total Bilirubin 0.5 mg/dL (0.2-1.0) Aspartate Amino Transferase (AST) 19 U/L (15-37) Alanine Aminotransferase (ALT) 21 U/L (14-59) Alkaline Phosphatase 58 U/L (46-116) Total Protein 7.6 g/dL (6.4-8.2) Albumin 3.8 g/dL (3.4-5.0) Albumin/Globulin Ratio 1.0 (1.0-1.7) Lipase 94 U/L (73-393) Lactic Acid Level 1.0 mmol/L (0.4-2.0) Laboratory Tests 11/09/20 11:15 Laboratory Tests 11/09/20 11:15 Vital Signs: Vital Signs Date Time Temp Pulse Resp B/P (MAP) Pulse Ox O2 Delivery O2 Flow Rate FiO2 11/09/20 12:11 3 99 Room Air EKG: EKG: [] Radiology/Procedures: Radiology/Procedures: PROCEDURE: CT CHEST ABD PELVIS W/CONTRAST CT chest abdomen and pelvis with contrast: History: Cough and left flank pain and nausea and vomiting Axial helical images of the chest abdomen and pelvis were obtained after the administration of 75 cc IV Omni 300 contrast. Comparison: February 03, 2019 CT OF THE CHEST WITH IV CONTRAST: There is no mediastinal lymphadenopathy or hematoma. Lymphadenopathy: no Thoracic aorta: normal Lungs and pleural margins: clear Impression: No acute findings. End Impression CT OF THE ABDOMEN AND PELVIS WITH IV CONTRAST: There is a mesh placement anteriorly from prior hernia repair. The colon is collapsed and not well evaluated. Liver: Unremarkable Spleen: Unremarkable Pancreas: Unremarkable Adrenal Glands: Unremarkable Kidneys: Unremarkable Evaluation of stomach and bowel is limited without oral contrast. There is a 2.3 cm nodule in the lower pole of the left lobe of thyroid. Lymphadenopathy: no. Free fluid: no. Free air: no. The bladder appears normal. Impression: No acute findings. Stable appearance of the chest abdomen and pelvis. End impression PQRS Compliance Statement: One or more of the following individualized dose reduction techniques were utilized for this examination: 1. Automated exposure control 2. Adjustment of the mA and/or kV according to patient size 3. Use of iterative reconstruction technique Electronically signed by: Nagi Stevenson III, MD (11/09/2020 12:23 PM) [facility] Course & Med Decision Making: Course & Med Decision Making Pertinent Labs and Imaging studies reviewed. (See chart for details) [] Dragon Disclaimer: Dragon Disclaimer: This electronic medical record was generated, in whole or in part, using a voice recognition dictation system. Departure Departure Impression: Primary Impression: Viral syndrome Additional Impressions: Nausea vomiting and diarrhea Abdominal pain Qualified Codes: R10.84 - Generalized abdominal pain Suspected 2019 novel coronavirus infection Pharyngitis Qualified Codes: J02.9 - Acute pharyngitis, unspecified Disposition: 01 DC HOME SELF CARE/HOMELESS Condition: STABLE Referrals: UNKNOWN PCP NAME (PCP) ANJALI PURDY MD Patient Instructions: Abdominal Pain (Nonspecific), Diarrhea, Ftgs-cr-Demy, Diet for Diarrhea, Adult, Nausea and Vomiting, [id number], Viral Syndrome, Viral and Bacterial Pharyngitis, [id number] Additional Instructions: Hold antibiotics for 48 hours. If symptoms worsen or for fever > 100.3 F after 48 hours then start antibiotics as prescribed. You have been tested for or diagnosed with COVID-19. It is an infection caused by a new type of coronavirus. COVID-19 will cause cold-like or mild flu symptoms in most. It can cause more severe symptoms like problems breathing in some. There is no treatment for COVID-19. The body will clear the infection over time. Self-care will help to ease discomfort. Steps to Take: Self-Care Rest as needed. Healthy habits may help you feel better. Steps include: Choose healthy foods including fruits and vegetables. Drink water throughout the day. Get plenty of sleep each night. If you smoke, try to quit. It may ease breathing. Avoid alcohol. Keep Others Healthy The virus can spread to others. Droplets are released every time you sneeze or cough. The droplets can get into the mouth, nose, or eyes of people near you and lead to infection. To lower the chances of spreading COVID-19 to others: Stay at home until your doctor has said it is safe to leave. If you tested positive this will mean staying isolated until both of the following are true: At least 7 days have passed since the start of illness. You are free of fever for at least 72 hours without the use of medicine. During this time: - Avoid public areas, events, or transportation. Do not return to work or school until your doctor has said it is safe to do so. - Call ahead if you need to go to a medical center. Let them know you may have COVID-19. It will help them guide you where to go. They may also ask you to wear a facemask when you come to the office. - If you call for emergency medical services, let them know you may have COVID- 19. While at home: - Try to avoid close contact with others. Stay about 6 feet away. - If possible, spend most of your time in a separate room from others. - Use a face mask if you will be in close contact with others such as sharing a room or vehicle. - Have someone wipe down common surfaces in the home. Use household bicycle inspector every day on areas like doorknobs, counters, or sinks. - Cough or sneeze into a tissue. Throw the tissue away right after use. If a tissue is not available, cough or sneeze into your elbow. - Wash your hands often. Wash them after sneezing or coughing. Use soap and water and wash for at least 20 seconds. Alcohol based hand basting cleaner can be used if soap and water is not available. - Do not prepare food for others. Avoid sharing personal items like forks, spoons, or toothbrushes. - Avoid close contact with pets while you are sick. There is no evidence of the virus passing to pets. This is a safety step until more is known about this virus. Isolation can be frustrating. Social interaction can help. Keep in touch with friends and family through phone and tech options. You can still interact with others in your home, just keep a safe distance of about 6 feet. Follow-up: Your doctors office will check in with you to see if there are any changes in your health. You may be asked to keep track of symptoms to share with them. They will also let you know when you are clear to be in public again. Problems to Look Out For: Contact your doctor if your recovery is not going as you expect. Get emergency care if you have problems such as: - Trouble breathing - Nonstop chest pain or pressure - Changes in awareness, confusion, or problems waking - Lips or face have bluish color - Worsening of symptoms If you think you have an emergency, call for emergency medical services right away. As taken from [facility] Azithromycin (ZITHROMAX PACKET) 1 Gm Packet 1 PACKET PO ONCE, #1 PACKET Day #1: 500mg PO Day #2-5: 250mg PO qday Prov: EULALIA CROUCH DO 11/09/20 Hydrocodone/Acetaminophen (Hydrocodone-Acetamin 5-325 mg) 1 Each Tablet 0.5-1 EACH PO Q6HRS PRN for PAIN, #10 TAB Prov: EULALIA CROUCH DO 11/09/20 Hyoscyamine Sulfate (LEVSIN-SL) 0.125 Mg Tab.subl 0.125 MG SL Q4-6HRS PRN for PAIN, #14 TAB Prov: EULALIA CROUCH DO 11/09/20 Famotidine (PEPCID) 20 Mg Tablet 20 MG PO BID, #10 TAB Prov: EULALIA CROUCH DO 11/09/20 Ondansetron (ONDANSETRON ODT) 4 Mg Tab.rapdis 1 TAB PO PRN Q6-8HRS PRN for NAUSEA, #16 TAB Prov: EULALIA CROUCH DO 11/09/20 EULALIA CROUCH DO Nov 09, 2020 12:33
[2020-11-09] MEDS ORDERED: HYOSCYAMINE 0.125 MG TAB.RAPDIS PO ONE (12:45)
[2020-11-09] MEDS ORDERED: ONDA4TAB12 PO (12:57)
[2020-11-09] MEDS ORDERED: HYOS0.1265 SL (12:57)
[2020-11-09] MEDS ORDERED: FAMO-63 PO (12:57)
[2020-11-09 13:15] LABS: MONONUCLEOSIS PATIENT NEGATIVE (NEGATIVE)
[2020-11-09] MEDS ORDERED: HYDROcodone/APAP 5/325MG 1 TAB TABLET PO ONE (14:45)
[2020-11-09] MEDS ORDERED: HYDR-2759 PO (14:47)
[2020-11-09] MEDS ORDERED: AZIT1PAC PO (14:47)
[2020-11-09 15:17] VITALS: BP 125/73
--- NOTE | 2020-11-11 09:00 | NUR ---
IP: Informed pt of negative COVID test. Pt verbalized understanding.
== END 2020-11-09 15:20 | disposition home or self-care (01) ==
LOC: ER 09:30
DX: U07.1 COVID-19 (principal); B34.9 Viral infection, unspecified; J02.9 Acute pharyngitis, unspecified; R10.84 Generalized abdominal pain; R19.7 Diarrhea, unspecified; R11.2 Nausea with vomiting, unspecified; M19.90 Unspecified osteoarthritis, unspecified site; J45.909 Unspecified asthma, uncomplicated; F17.200 Nicotine dependence, unspecified, uncomplicated; Z90.89 Acquired absence of other organs; Z90.49 Acquired absence of other specified parts of digestive tract; Z98.890 Other specified postprocedural states; Z88.0 Allergy status to penicillin; Z91.040 Latex allergy status; Z88.2 Allergy status to sulfonamides
CPT/HCPCS: 36415; 71260; 74177; 80053; 81001; 81025; 82274; 83605; 83690; 83735; 85025; 86308; 87070; 87086; 87177; 87209; 87493; 87505; 87880; 96361; 96374; 96375; 96376; 99285; C9803; J1100; J2270; J2405; J3010; J7030; Q9967; U0003; U0005

== ENCOUNTER 2021-03-19 19:50 | Emergency (ER) | payer MEDICAID ==
[~2021-03-19 19:50] MED LIST changes: +AZIT1PAC PO; -CLIN150C15 PO; +CLIN150C16 PO; +FAMO-63 PO; +HYDR-2759 PO; +HYOS0.1265 SL; +ONDA4TAB12 PO
[2021-03-19 22:54] VITALS: BP 131/108
[2021-03-21] MEDS ORDERED: QUET50TA5 PO (20:35)
== END 2021-03-19 22:54 | disposition left against medical advice (07) ==
LOC: ER 19:50
DX: R10.9 Unspecified abdominal pain (principal); Z53.21 Procedure and treatment not carried out due to patient leaving prior to being seen by health care provider